=== PATIENT | female | born 1960 | race Caucasian/White ===

== ENCOUNTER → 2020-03-30 07:58 | Outpatient (BNVA) | payer OTHER, SELFPAY | PROVIDERS: PCP Family Medicine; Referring Provider Family Medicine; Visit Provider Advanced Practice Midwife | DX: Z76.89 Persons encountering health services in other specified circumstances (principal) ==

== ENCOUNTER 2021-04-03 07:54 | Outpatient (REF) | payer OTHER, SELFPAY ==
[2021-04-06 00:36] LABS: HPV mRNA E6/E7 rflx Not Detected (Not Detected)
== END 2021-04-03 07:55 | disposition home or self-care (01) ==
LOC: HO.LAB 07:54
PROVIDERS: PCP Family Medicine; Visit Provider Advanced Practice Midwife
DX: Z01.419 Encounter for gynecological examination (general) (routine) without abnormal findings (principal); Z11.51 Encounter for screening for human papillomavirus (HPV)
CPT/HCPCS: 87624; 88142

== ENCOUNTER 2023-05-03 20:48 | Emergency (ER) | payer OTHER, SELFPAY ==
[2023-05-03 21:53] VITALS: BP 185/103; PULSE 81; RESP 16; TEMP 37; O2SAT 99; BMI 26.2
--- NOTE | 2023-05-03 23:53 | ED_ITS ---
HPI - Allergic Reaction General Chief complaint: Allergic Reaction Stated complaint: Allergic reaction Time Seen by Provider: 05/03/23 23:49 Source: patient Mode of arrival: ambulatory Limitations: no limitations History of Present Illness HPI narrative: patient comes to the emergency room complaining Of an allergic reaction. patient states that yesterday she dyed her hair, used a new product. Shortly after, patient started developing an itchy rash over the scalp, forehead and down the neck. Patient denies any difficulty breathing or swallowing. Patient took 3 tablets of Benadryl yesterday, patient states that he gave her significant tachycardia. Patient requesting that to be given Benadryl today. Related Data Home Medications Medication Instructions Recorded Confirmed melatonin 5 mg capsule mg PO .at bedtime 04/05/22 Previous Rx's Medication Instructions Recorded famotidine 40 mg tablet (Pepcid) 40 mg PO DAILY #3 tabs 05/04/23 prednisone 50 mg tablet 50 mg PO DAILY #3 tabs 05/04/23 Allergies Allergy/AdvReac Type Severity Reaction Status Date / Time acetaminophen [ACETAMINOPHEN] Allergy Intermediate HTN Verified 04/05/22 07:46 gabapentin [GABAPENTIN] Allergy Intermediate HTN Verified 04/05/22 07:46 pineapple [PINEAPPLE] Allergy Intermediate RASH Verified 04/05/22 07:46 strawberry [STRAWBERRY] Allergy Intermediate RASH Verified 04/05/22 07:46 watermelon [WATERMELON] Allergy Intermediate RASH Verified 04/05/22 07:46 Review of Systems Review of Systems: Constitutional : No Weight loss, No Fever, No Chills, No Night Sweats, No Fatigue, No Malaise ENT/Mouth : No Hearing loss, No Ear Pain, No Nasal Congestion, No Sinus Pain, No Hoarseness, No sore throat, No Rhinorrhea, No Swallowing Difficulty Eyes: No Eye Pain, No Swelling, No Redness, No Foreign Body, No Discharge, No Vision Changes Cardiovascular : No Chest Pain, No SOB, No Dyspnea on Exertion, No Orthopnea, No Edema, No Palpitations Respiratory : No Cough, No Sputum, No Wheezing, No Smoke Exposure, No Dyspnea Gastrointestinal : No Nausea, No Vomiting, No Diarrhea, No Constipation, No abdominal Pain, No Hematochezia, No Melena Genitourinary : no irregular bleeding, No Dysuria, No Urinary Frequency, No Hematuria, No Urinary Incontinence, No Urgency, No Flank Pain, No Urinary Flow Changes, No Hesitancy Musculoskeletal : No joint pain, No Myalgias, No Joint Swelling Skin : Hives in scalp forehead and back of neck Neuro : No Weakness, No Numbness, No Paresthesias, No Loss of Consciousness, No Dizziness, No Headache Psych : No Anxiety/Panic, No Depression, No SI/HI/AH/VH, No Social Issues, Heme/Lymph: No Bruising, No Bleeding,No Lymphadenopathy Endocrine : No Polyuria, No Polydipsia, No Temperature Intolerance [facility] Past Medical History Medical History Hx of abnormal cervical Pap smear Hx of hypertensive heart disease Surgical History History of loop electrical excision procedure (LEEP) Hx of inguinal hernia repair Hx of parathyroidectomy Hx of tonsillectomy Hx of varicose vein ligation Family History Family History Sister Breast cancer Paternal Aunt Breast cancer Social History Social History Household Members: Children Housing: House Alcohol intake: former Patient Tobacco Use Status: Never used Tobacco Advance Directives: No Advance Directives Information Provided: No Current occupational status: retired Sexual orientation: Straight/Heterosexual Gender identity: Female Physical Exam ED Vital Signs: Vital Signs - 24 hr 05/03/23 21:53 Temperature 98.6 F Pulse Rate 81 Respiratory Rate 16 Blood Pressure 185/103 H Pulse Oximetry 99 Oxygen Delivery Method Room Air BMI result Body Mass Index 26.2 Const Other: Appearance: Alert. Oriented X3. No acute distress. Eyes: Pupils equal, round and reactive to light. ENT: normal oropharynx, no angioedema Neck: Normal inspection. Neck supple. No lymph nodes noted. No crepitus CVS: Normal heart rate and rhythm. Pulses normal. Normal S1 and S2 Respiratory: No respiratory distress. Breath sounds normal. No Wheezing. No rales Abdomen: Soft and nontender. No rigidity. No distention. Skin: patient has hives in the scalp, forehead and back of the neck Extremities: No lower extremity edema. No Lacerations. No Rash Neuro: Oriented X 3. No motor deficit. No sensory deficit. Moving all extremities. No slurred speech. CN 2 through 12 grossly intact Psych: calm, cooperative, normal affect Course Course Course Narrative: - patient being giving IV fluids, famotidine and methylprednisolone. Patient requested not to get Benadryl. At this time, epinephrine IM not indicated Medications Administered Discontinued Medications Generic Name Dose Route Start Last Admin Trade Name David PRN Reason Stop Dose Admin Famotidine 20 mg 05/03/23 23:53 05/04/23 00:05 Famotidine/Pf 20 Mg/2 Ml Vial IVPUSH 05/03/23 23:54 20 mg ONCE ONE Administration Sodium Chloride 1,000 mls @ 999 mls/hr 05/03/23 23:53 05/04/23 00:04 Ns IVCONT 05/04/23 00:53 999 mls/hr .Q1H1M ONE Administration Methylprednisolone Sodium Succinate 125 mg 05/03/23 23:53 05/04/23 00:05 Methylprednisolone Sod Succ 125 Mg/2 Ml Vial IVPUSH 05/03/23 23:54 125 mg ONCE ONE Administration Medical Decision Making Medical Decision Making MDM Narrative: Patient responded well to steroids. Patient still has minimal rash. Per hour, the hives significantly reduced. Patient was given an additional dose of Solu-Medrol. - Vitals stable, no airway compromise Differential Diagnosis Differential Diagnoses: The differential diagnosis associated with the presentation includes ( allergic reaction, hypersensitivity reaction) Critical Care Time Critical Care Time Critical Care Time: Yes Total Critical Care Time: 45 Attestation: I have personally provided critical care time. Time includes review of lab data, radiology results, discussion with consultants, and monitoring for potential decompensation. Intervention performed as documented. Discharge Plan Discharge Clinical Impression: Allergic reaction Patient Disposition: Home, Self-Care Instructions: General Allergic Reaction (ED) Additional Instructions: Please follow-up with your primary care physician tomorrow. If you have any worsening or new symptoms, please return to the emergency room or call 911 Prescriptions: New prednisone 50 mg tablet 50 mg PO DAILY Qty: 3 0RF famotidine [Pepcid] 40 mg tablet 40 mg PO DAILY Qty: 3 0RF No Action melatonin 5 mg capsule PO .at bedtime
[2023-05-04] MEDS: 0.9 % Sodium Chloride 1,000 ML 999 ML IVCONT (00:04)
[2023-05-04] MEDS: methylPREDNISolone Sod Succ 125 MG/2 ML VIAL IVPUSH ×2 (00:05→02:16)
[2023-05-04] MEDS: Famotidine/PF 20 MG/2 ML VIAL IVPUSH (00:05)
[2023-05-04 02:18] VITALS: BP 178/99; PULSE 75; RESP 17; O2SAT 98
== END 2023-05-04 02:27 | disposition home or self-care (01) ==
PROVIDERS: Emergency Provider Emergency Medicine; PCP Family Medicine
DX: L50.0 Allergic urticaria (principal)
CPT/HCPCS: 96361; 96374; 96375; 96376; 99284; J2930

== ENCOUNTER 2023-06-04 11:28 | Outpatient (REF) | payer OTHER, SELFPAY ==
[2023-06-04 13:55] LABS: Alanine Aminotransferase 18 U/L (0-31); Albumin Level 4.6 g/dL (3.5-5.0); Alkaline Phosphatase 64 U/L (39-117); Anion Gap 13 (12-20); Aspartate Amino Transferase 19 U/L (5-31); Bilirubin Direct 0.1 mg/dL (0.0-0.5); Bilirubin Total 0.4 mg/dL (0.0-1.0); Blood Urea Nitrogen 6 mg/dL (9-16); Calcium 9.7 mg/dL (8.4-10.2); Carbon Dioxide 26 mmol/L (22-29); Chloride 105 mmol/L (96-108); Cholesterol 224 mg/dL (<200); Estimated Glomerular Filt Rate > 60; Glucose Random 103 mg/dL (60-115); HDL Cholesterol 74 mg/dL (>40); LDL Cholesterol Calculated 124 mg/dL (<100); Potassium 4.5 mmol/L (3.3-5.1); Sodium 139 mmol/L (135-145); Triglycerides 132 mg/dL (<150)
[2023-06-04 13:58] LABS: HIV AB/AG Nonreactive (Nonreactive); HIV Num 1 0.05 S/CO (0.00-0.99); ~Hepatitis C Antibody Nonreactive (Nonreactive)
[2023-06-04 13:59] LABS: Parathyroid Hormone Intact 93.3 pg/mL (8.7-77.1)
[2023-06-04 14:11] LABS: TSH reflex Free T4 2.31 uIU/mL (0.32-4.0); Vitamin D 25-OH Total 43.9 ng/mL (>30)
== END 2023-06-04 11:29 | disposition home or self-care (01) ==
LOC: HO.HHCL 11:28
PROVIDERS: Visit Provider Family Medicine
DX: Z11.3 Encounter for screening for infections with a predominantly sexual mode of transmission (principal); Z11.4 Encounter for screening for human immunodeficiency virus [HIV]; E21.3 Hyperparathyroidism, unspecified; E78.5 Hyperlipidemia, unspecified; I10 Essential (primary) hypertension
CPT/HCPCS: 36415; 80048; 80061; 80076; 82306; 83970; 84443; 86803; 87389

== ENCOUNTER 2023-06-11 10:33 | Outpatient (AMB) | payer OTHER, SELFPAY ==
[2023-06-11 10:58] VITALS: BP 144/94; BMI 25.8
--- NOTE | 2023-06-11 10:58 | MHC.OFFVIS ---
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: Trailhead Maintenance Worker Name: Molly Brunson ANNIKA Information Interpreted: non-clinical & clinical General Surgery Physician Assistant: General Surgery Physician Assistant Present (Molly ROBLERO) Accompanied by: Self / Same As Patient Allergies acetaminophen [ACETAMINOPHEN] Allergy (Intermediate, Verified 06/11/23 11:04) HTN gabapentin [GABAPENTIN] Allergy (Intermediate, Verified 06/11/23 11:04) HTN pineapple [PINEAPPLE] Allergy (Intermediate, Verified 06/11/23 11:04) RASH strawberry [STRAWBERRY] Allergy (Intermediate, Verified 06/11/23 11:04) RASH watermelon [WATERMELON] Allergy (Intermediate, Verified 06/11/23 11:04) RASH Post menopausal: Yes HPI HPI Comments History of Present Illness Details She 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 She is doing well with no concerns. Attempting to eat a healthy diet with calcium and vitamin D and stays active with exercise. Currently not sexually active. Denies any vaginal dryness or irritation. STI testing offered; she declines. Last pap smear; [facility], due 2023. Last mammogram; at [facility] and UTD pre/pt. Colonoscopy is UTD. Denies any family history of breast, ovarian or colon cancer. [facility], [facility] Medical History Hx of abnormal cervical Pap smear Hx of hypertensive heart disease Surgical History Hx of varicose vein ligation Hx of inguinal hernia repair Hx of tonsillectomy Hx of parathyroidectomy History of loop electrical excision procedure (LEEP) Family History Sister Breast cancer Paternal Aunt Breast cancer Social History (Updated 06/11/23 @ 11:06 by Molly Brunson CMA) Household Members: Children Housing: House Alcohol intake: former Patient Tobacco Use Status: Never used Tobacco Current occupational status: retired Sexual orientation: Straight/Heterosexual Gender identity: Female Female Reproductive History Menstrual Age of Menarche: 14 Menopause type: natural Total pregnancies: 8 Full term: 8 Number of Living Children: 6 Date of last pap smear: 04/04/21 Date of Mammogram: 05/06/23 History of abnormal mammogram: No Review of Systems Const All systems reviewed & are unremarkable except as noted in HPI and below Reports as per HPI Eyes Reports no additional complaints ENT Reports no additional complaints Card Reports no additional complaints Resp Reports no additional complaints GI Reports as per HPI and Reports no additional complaints Reports as per HPI Musc Reports no additional complaints Skin/Breast Reports as per HPI Neuro Reports no additional complaints Psych Reports no additional complaints Endo Reports no additional complaints Alfonzo/Lymph Reports no additional complaints Aller/Immun Reports no additional complaints Physical Exam Vital Signs: Last Vital Signs BP 144/94 H 06/11/23 10:58 BMI result Body Mass Index 25.8 Const General: cooperative, healthy appearing, no acute distress, well developed and alert Orientation/consciousness: patient oriented x3 HEENT Head: Yes normal to inspection Eyes General: appearance normal, both eyes and all related structures Neck Neck: Yes normal visual inspection Thyroid: Thyroid normal Chest Chest palpation & inspection: normal inspection of the chest and other (no puckering, dimpling, peau de orange, retraction, discharge, masses) Breast/axilla inspection: normal inspection of the breasts Breast/axilla palpation: normal palpation of the breasts Resp Effort & Inspection: normal respiratory effort GI Inspection: Yes normal to inspection Palpation (GI): Soft to palpation Rectal Exam - Female: deferred General: Yes bladder normal to palpation External Female Exam: normal external appearance and normal appearance of the urethra Speculum Exam - Vagina: normal appearance of the vagina, normal palpation and normal vaginal discharge Speculum Exam - Cervix: normal appearance of the cervix and normal palpation Bimanual exam- vagina & uterus: normal bimanual exam, normal palpation, uterine size normal, bladder normal to palpation, normal palpation and non-tender Bimanual Exam- Adnexa, other: no masses Skin General skin exam: no rashes or lesions noted Rashes: no rashes Neuro General: patient oriented x3 Cognition (Neuro): normal cognition Extrem General: Yes normal to inspection Psych Attitude: cooperative Thought process: Normal thought process present Assessment & Plan Assessment & Plan (1) Well woman exam with routine gynecological exam: Code(s): Z01.419 - Encounter for gynecological examination (general) (routine) without abnormal findings Plan: Discussed: Current recommendations for pap smears per ASCCP guidelines. Breast awareness, periodic self breast exams and yearly mammogram. Maintain a healthy lifestyle, well balanced diet including Calcium 1,200 mg and Vitamin D 600 IU daily, and routine exercise. Contact the office with any postmenopausal bleeding. All of her questions and concerns were addressed to the best of my ability. 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 This note is constructed using voice recognition software. While every effort has been made to ensure accuracy, neon sign maker errors may have been included. Coding Level of Care Code Est Pt Prev Care 40-64y(13918) Diagnoses Well woman exam with routine gynecological exam Z01.419
== END 2023-06-11 13:33 | disposition home or self-care (01) ==
LOC: HO.HWS 10:33
PROVIDERS: PCP Family Medicine; Visit Provider Advanced Practice Midwife
DX: Z01.419 Encounter for gynecological examination (general) (routine) without abnormal findings (principal)
CPT/HCPCS: 99396

== ENCOUNTER → 2023-06-11 10:33 | Outpatient (BNVA) | payer OTHER, SELFPAY | PROVIDERS: PCP Family Medicine; Visit Provider Advanced Practice Midwife ==

== ENCOUNTER 2024-02-05 09:12 | Outpatient (REF) | payer OTHER, SELFPAY ==
[2024-02-05 12:31] LABS: Anion Gap 11 (12-20); Blood Urea Nitrogen 8 mg/dL (9-16); Calcium 10.1 mg/dL (8.4-10.2); Carbon Dioxide 27 mmol/L (22-29); Chloride 105 mmol/L (96-108); Estimated Glomerular Filt Rate > 60; Glucose Random 103 mg/dL (60-115); Sodium 139 mmol/L (135-145)
[2024-02-05 12:46] LABS: Parathyroid Hormone Intact 54.8 pg/mL (8.7-77.1)
[2024-02-05 12:48] LABS: Creatinine Urine 137.75 mg/dL; Microalbum/Creatinine Ratio Ur 8.7 ug/mg cr (<30)
[2024-02-05 12:57] LABS: Vitamin D 25-OH Total 39.6 ng/mL (>30)
== END 2024-02-05 09:13 | disposition home or self-care (01) ==
LOC: HO.HHCL 09:12
PROVIDERS: Visit Provider Family Medicine
DX: I10 Essential (primary) hypertension (principal); E21.3 Hyperparathyroidism, unspecified
CPT/HCPCS: 36415; 80048; 82043; 82306; 82310; 82570; 83970

== ENCOUNTER 2024-07-08 11:22 | Outpatient (REF) | payer OTHER, SELFPAY ==
--- OUTSIDE RECORDS SUMMARY | 2024-07-08 13:44 | XMS_ITS | Clinical Summary ---
Author Organization [facility], Address [address] [place] [address] [place] [address] Phone Care Team Providers Care Adult Care Manager Name Role Phone Ashanti Davila MD Primary Care Provider U navailable Allergies Active Allergy Reactions Criticality Noted Date Comments Gabapentin 07/07/2019 Medications NIFEdipine CC (ADALAT CC) 30 MG 24 hr tablet Take 30 mg by mouth 1 (one) time each day Active Active Problems Problem Noted Date Diagnosed Date Hypercholesterolemia Hyperparathyroidism Hypertension Social History Tobacco Use Types Packs/Day Years Used Date Smoking Tobacco: Never Comments Unknown Sex and Gender Information Value Date Recorded Sex Assigned at Not on file Legal Sex Female 3:43 PM EST Gender Identity Not on file Sexual Orientation Not on file Last Filed Vital Signs Vital Sign Reading Time Taken Comments Blood Pressure 166/105 07/14/2019 9:31 AM EST Pulse 75 07/14/2019 9:31 AM EST Temperature 36.8 ??C (98.2 ??F) 07/14/2019 9:31 AM ES T Respiratory Rate - - Oxygen Saturation - - Inhaled Oxygen Concentration - - Weight 68.9 kg (152 lb) 07/14/2019 9:31 AM EST Height 160 cm (5' 3 ) 07/14/2019 9:31 AM EST Body Mass Index 26.93 07/14/2019 9:31 AM EST Plan of Treatment Health Maintenance Due Date Last Done Comments Breast Cancer Screening 1960 Colorectal Cancer Screening: Annual FOBT 01/10/2008 Colorectal Cancer Screening: Colonoscopy 01/10/2008 Colorectal Cancer Screening: Sigmoidoscopy 01/10/2008 Pneumococcal Vaccine: 65+ Ye ars (1 of 1 - PCV) 01/10/2024 Influenza Vaccine (#1) 2024 Hepatitis B Vaccine Aged Out No longe r eligible based on patient's age to complete this topic Pneumococcal Vaccine: Pediat rics (0 to 5 Years) and At-Risk Patients (6 to 64 Years) Aged Out No longer eligible b ased on patient's age to complete this topic Insurance [place] [employer] [id number] Care Teams Adult Care Manager Relationship Specialty Start Date End Date Baird, Ashanti Orta MD PCP - General Family Medicine 06/01/19
--- OUTSIDE RECORDS SUMMARY | 2024-07-08 13:44 | XMS_ITS | Clinical Summary ---
Author Organization [facility] ity Address [address] [place] [address] Care Team Providers Care Mica Washer Gluer Name Role Phone Unavailable Primary Care Provider Unavailabl e Social History Tobacco Use Types Packs/Day Years Used Date Smoking Tobacco: Never Assessed Sex and Gender Information Value Date Recorded Sex Assigned at Not on file Gender Identity Not on file Sexual Orientation Not on file Plan of Treatment Health Maintenance Due Date Last Done Comments Breast Cancer Screening 1960 DTaP,Tdap,and Td Vaccines (1 - Tdap) 1978 Cervical Cancer Screening: P ap Smear 01/10/1980 Zoster Vaccines (1 of 2) 2009 Cholesterol Screening (Lipid Panel) 05/14/2022 Colorectal Cancer Screening: Colonoscopy 05/14/2022 Depression Screening 05/14/2022 Hepatitis C Screening 05/14/2022 Osteoporosis Screening (Bone Density Screening) 05/14/2022 Social Influencers of Health Screening 05/14/2022 Falls Risk Assessment 01/10/2024 Pneumococcal Vaccine: 65+ Ye ars (1 of 1 - PCV) 01/10/2024 Hypertension/CHF/CAD Annual BMP Blood Test 01/12/2024 COVID-19 Vaccine (1 - 2023-2 5 season) 2024 Influenza Vaccine (#1) 2024 RSV Immunization Patients 60 + Years Old (1 - 1-dose 75+ series) 2034 HIB Vaccines Aged Out No longer eligi ble based on patient's age to complete this topic HPV Vaccines Aged Out No longer eligi ble based on patient's age to complete this topic Hepatitis A Vaccines Aged Out No long er eligible based on patient's age to complete this topic Hepatitis B Vaccines Aged Out No long er eligible based on patient's age to complete this topic IPV Vaccines Aged Out No longer eligi ble based on patient's age to complete this topic MMR Vaccines Aged Out No longer eligi ble based on patient's age to complete this topic Meningococcal ACWY Vaccine Aged Out N o longer eligible based on patient's age to complete this topic Pneumococcal Vaccine: Pediat rics (0 to 5 Years) and At-Risk Patients (6 to 64 Years) Aged Out No longer eligible b ased on patient's age to complete this topic RSV Immunization Patients Un sherri 20 months Aged Out No longer eligible b ased on patient's age to complete this topic Varicella Vaccines Aged Out No longer eligible based on patient's age to complete this topic
[2024-07-08 14:10] LABS: Alanine Aminotransferase 20 U/L (0-31); Albumin Level 4.3 g/dL (3.5-5.0); Alkaline Phosphatase 60 U/L (39-117); Anion Gap 11 (12-20); Aspartate Amino Transferase 22 U/L (5-31); Bilirubin Direct 0.2 mg/dL (0.0-0.5); Bilirubin Total 0.6 mg/dL (0.0-1.0); Blood Urea Nitrogen 7 mg/dL (9-16); Calcium 9.7 mg/dL (8.4-10.2); Carbon Dioxide 24 mmol/L (22-29); Chloride 107 mmol/L (96-108); Cholesterol 230 mg/dL (<200); Estimated Glomerular Filt Rate > 60; Glucose Random 85 mg/dL (60-115); HDL Cholesterol 65 mg/dL (>40); LDL Cholesterol Calculated 154 mg/dL (<100); Potassium 3.7 mmol/L (3.3-5.1); Sodium 138 mmol/L (135-145); Total Protein 7.7 g/dL (6.5-8.0); Triglycerides 56 mg/dL (<150)
[2024-07-08 14:15] LABS: Creatinine Urine 83.85 mg/dL; Microalbum/Creatinine Ratio Ur 9.5 ug/mg cr (<30)
== END 2024-07-08 11:23 | disposition home or self-care (01) ==
LOC: HO.HHCL 11:22
PROVIDERS: Visit Provider Family Medicine
DX: I10 Essential (primary) hypertension (principal); E78.5 Hyperlipidemia, unspecified
CPT/HCPCS: 36415; 80048; 80061; 80076; 82043; 82570

== ENCOUNTER 2024-08-09 07:58 | Emergency (ER) | payer OTHER, SELFPAY ==
[2024-08-09] VITALS (8 sets, daily range): BP systolic 157–186; BP diastolic 88–114; PULSE 64–98; RESP 15–18; TEMP 36.2–36.8; O2SAT 99–100; BMI 26.6
--- NOTE | 2024-08-09 08:24 | ECG_ITS ---
Test Reason : htn Blood Pressure : */* mmHG Vent. Rate : 78 BPM Atrial Rate : 78 BPM P-R Int : 216 ms QRS Dur : 86 ms QT Int : 378 ms P-R-T Axes : 66 31 65 degrees QTcB Int : 430 ms Sinus rhythm with 1st degree A-V block Minimal voltage criteria for LVH, may be normal variant ( Sokolow-Lira ) Nonspecific ST and T wave abnormality Abnormal ECG When compared with ECG of 01-May-2017 15:23, Nonspecific T wave abnormality no longer evident in Anterior leads Referred By: Aaron Umana Electronically Signed By: ALICE GONZALEZ
--- NOTE | 2024-08-09 08:25 | ED_ITS ---
HPI - General Adult General Chief complaint: General Medical Stated complaint: high bp Time Seen by Provider: 08/09/24 08:18 Source: patient Mode of arrival: ambulatory Limitations: no limitations History of Present Illness HPI narrative: This is 64 years old the patient with a history of hypertension who presented to the emergency department with elevated blood pressure. She denies any chest pain shortness of breath. She states she was on losartan and then amlodipine 2.5 mg. She has been off the blood pressure medication for about a week. Onset (ago): week(s) (1) Location: lower extremity Radiation: non-radiation Severity: moderate Quality: burning Pain Consistency: constant Relieving factors: none Exacerbating factors: none Related Data Home Medications ?Medication ?Instructions ?Recorded ?Confirmed ascorbic acid (vitamin C) 500 mg mg PO 06/11/23 capsule Previous Rx's ?Medication ?Instructions ?Recorded amlodipine 10 mg tablet (Norvasc) 10 mg PO DAILY #10 tabs 08/09/24 Allergies Allergy/AdvReac Type Severity Reaction Status Date / Time acetaminophen [ACETAMINOPHEN] Allergy Intermediate HTN Verified 08/09/24 08:07 gabapentin [GABAPENTIN] Allergy Intermediate HTN Verified 08/09/24 08:07 pineapple [PINEAPPLE] Allergy Intermediate RASH Verified 08/09/24 08:07 strawberry [STRAWBERRY] Allergy Intermediate RASH Verified 08/09/24 08:07 watermelon [WATERMELON] Allergy Intermediate RASH Verified 08/09/24 08:07 aspirin [ASA] AdvReac Shakiness Verified 08/09/24 08:13 Review of Systems 2 Constitutional: Constitutional: Reports no additional constitutional complaints ENT: Reports system reviewed and no additional complaints, except as documented Cardiovascular: Cardiovascular: Reports no additional cardiovascular complaints [facility] Past Medical History [facility] Narrative: Hypertension Medical History Hx of abnormal cervical Pap smear Hx of hypertensive heart disease Surgical History Hx of varicose vein ligation Hx of inguinal hernia repair Hx of tonsillectomy Hx of parathyroidectomy History of loop electrical excision procedure (LEEP) Family History Family History Sister Breast cancer Paternal Aunt Breast cancer Social History Social History Household Members: Children Housing: House Alcohol intake: former Patient Tobacco Use Status: Never used Tobacco Smoked in Last 30 Days: No Use of substances other than those prescribed or required for medical reasons: No Advance Directives: No Advance Directives Information Provided: Yes Do you have a plan to hurt others: No Plan Current occupational status: retired Sexual orientation: Straight/Heterosexual Gender identity: Female Physical Exam ED Vital Signs: Vital Signs - 24 hr 08/09/24 08:03 08/09/24 08:22 08/09/24 08:29 Temperature 97.8 F 97.1 F Pulse Rate 98 83 Respiratory Rate 16 18 Blood Pressure 181/103 H 186/114 H 186/114 H Pulse Oximetry 99 100 Oxygen Delivery Method Room Air 08/09/24 08:55 08/09/24 09:32 08/09/24 09:59 Temperature Pulse Rate 68 64 68 Respiratory Rate 16 18 18 Blood Pressure 175/112 H 163/97 H 161/88 H Pulse Oximetry 100 99 99 Oxygen Delivery Method Room Air Room Air Room Air 08/09/24 10:16 08/09/24 11:11 Temperature 98.3 F 98.3 F Pulse Rate 72 72 Respiratory Rate 15 15 Blood Pressure 157/90 H 157/90 H Pulse Oximetry 99 99 Oxygen Delivery Method Room Air Room Air BMI result Body Mass Index 26.6 No acute distress looks well vital signs stable but BP 181/103 and then 186/114 Const General: cooperative, comfortable, no acute distress and well developed Nutritional Appearance: average body habitus Limitations: no limitations HENMT Head: Yes normal to inspection General nose exam: Normal external nose present Face and sinus: Yes normal facial exam Mouth: Normal oral and palatal mucosa present Neck Neck: Yes normal visual inspection Chest Chest palpation & inspection: normal inspection of the chest Cardio Jugular venous distension: no JVD Rate: regular rate Rhythm: regular rhythm GI Inspection: Yes normal to inspection Palpation (GI): Soft to palpation, not firm, nontender and no guarding Percussion: Yes normal to percussion Auscultation: normal bowel sounds Skin General skin exam: no rashes or lesions noted, elasticity normal and turgor normal Course Reevaluation(s) Reevaluation #1: BP better labs normal anticipate discharge Time: 10:56 Medications Administered Discontinued Medications Generic Name Dose Route Start Last Admin Trade Name Barreraq PRN Reason Stop Dose Admin Amlodipine Besylate 10 mg 08/09/24 08:24 08/09/24 08:29 Amlodipine Besylate 10 Mg Tablet PO 08/09/24 08:25 10 mg ONCE ONE Administration Protocol Medical Decision Making Medical Decision Making [facility] Narrative: Patient presented with elevated blood pressure pressure we will check ekg/labs Differential Diagnosis Differential Diagnoses: The differential diagnosis associated with the presentation includes Essential hypertension/acute coronary syndrome/white coat hypertension Lab Data [facility] Lab Attestation statement: I reviewed the patient's lab results. 08/09/24 08:38 08/09/24 00:06 Labs: Lab Results 08/09/24 08/09/24 Range/Units 00:06 08:38 WBC 3.1 L (4.8-10.8) X10*3/uL RBC 4.97 (4.20-5.50) X10*6/uL Hgb 14.1 (12.0-16.0) g/dl Hct 41.6 (37.0-47.0) % MCV 83.7 (80.0-98.0) fL MCH 28.4 (27.0-33.0) pg MCHC 33.9 (31.0-35.0) g/dl RDW 13.2 (11.0-16.0) % Plt Count 238 (160-400) X10*3/uL MPV 9.7 (9.4-12.3) fL Immature Gran % (Auto) 0.3 (0.0-0.4) % Neut % (Auto) 52.1 (45-73) % Lymph % (Auto) 34.4 (20-40) % Iroquois % (Auto) 10.3 (2-11) % Eos % (Auto) 1.9 (0-4) % Baso % (Auto) 1.0 (0-2) % Lymph # (Auto) 1.1 L (1.2-4.9) X10*3/uL [place]quois # (Auto) 0.3 (0.1-1.2) X10*3/uL Eos # (Auto) 0.1 (0.0-0.4) X10*3/uL Baso # (Auto) 0.0 (0.0-0.2) X10*3/uL Abs Immat Gran (auto) 0.01 (0.00-0.03) X10*3/uL Absolute Neuts (auto) 1.6 L (2.0-8.3) x10*3/uL Absolute Nucleated RBC 0.000 (0.0-0.012) X10*3/uL Nucleated RBC % (auto) 0.0 (0.0-0.2) /100WBC Sodium 142 (135-145) mmol/L Potassium 3.9 (3.3-5.1) mmol/L Chloride 106 (96-108) mmol/L Carbon Dioxide 25 (22-29) mmol/L Anion Gap 15 (12-20) BUN 4 L (9-16) mg/dL Creatinine 0.73 (0.5-1.4) mg/dL Estim Creat Clear Calc 65.7 Estimated GFR > 60 Random Glucose 117 H (60-115) mg/dL Calcium 9.9 (8.4-10.2) mg/dL Total Bilirubin 0.6 (0.0-1.0) mg/dL AST 23 (5-31) U/L ALT 23 (0-31) U/L Alkaline Phosphatase 60 (39-117) U/L Troponin I High Sens < 2.7 (<3.5-17.0) ng/L Total Protein 8.2 H (6.5-8.0) g/dL Albumin 4.6 (3.5-5.0) g/dL Independent Interpretation I performed an independent interpretation of an: EKG Interpretation: Normal sinus rhythm rate 86 no ischemic changes Discharge Plan Discharge Clinical Impression: Hypertension Qualifiers: Hypertension type: unspecified Qualified Code(s): I10 - Essential (primary) hypertension Patient Disposition: Home, Self-Care Instructions: Hypertension (ED) Additional Instructions: Follow-up with your primary care physician we sent a prescription for Norvasc 10 mg take 1 tablet daily we gave you 10 day supply, but blood pressure needs to be treated by the primary care physician not by the emergency room. So call your primary care physician today arrange a follow-up appointment Prescriptions: New amlodipine [Norvasc] 10 mg tablet 10 mg PO DAILY Qty: 10 0RF No Action ascorbic acid (vitamin C) 500 mg capsule PO Referrals: Ashanti Davila MD [Primary Care Provider] - 3 days Interventions: ED Discharge Assessment Last Done: 08/09/24 11:11 Discharge Date/Time: 08/09/24 11:24 Print Language: [place]
[2024-08-09] MEDS: amLODIPine Besylate 10 MG TABLET PO (08:29)
[2024-08-09 08:43] LABS: MANUAL DIFF FLAG NO
[2024-08-09 08:45] LABS: Eosinophils Absolute Auto 0.1 X10*3/uL (0.0-0.4); Eosinophils Percent Auto 1.9 % (0-4); Hematocrit 41.6 % (37.0-47.0); Hemoglobin 14.1 g/dl (12.0-16.0); Imm Gran Abs Auto 0.01 X10*3/uL (0.00-0.03); Imm Gran Pct Auto 0.3 % (0.0-0.4); Lymphocytes Absolute Auto 1.1 X10*3/uL (1.2-4.9); Lymphocytes Percent Auto 34.4 % (20-40); Mean Corpuscular HGB Conc 33.9 g/dl (31.0-35.0); Mean Corpuscular Hemoglobin 28.4 pg (27.0-33.0); Mean Corpuscular Volume 83.7 fL (80.0-98.0); Mean Platelet Volume 9.7 fL (9.4-12.3); Monocytes Absolute Auto 0.3 X10*3/uL (0.1-1.2); Monocytes Percent Auto 10.3 % (2-11); Neutrophils Absolute Auto 1.6 x10*3/uL (2.0-8.3); Neutrophils Percent Auto 52.1 % (45-73); Platelet Count 238 X10*3/uL (160-400); Red Blood Count 4.97 X10*6/uL (4.20-5.50); Red Cell Distribution Width 13.2 % (11.0-16.0); White Blood Count 3.1 X10*3/uL (4.8-10.8)
--- OUTSIDE RECORDS SUMMARY | 2024-08-09 08:46 | XMS_ITS | Encounter Summary ---
Author Organization [employer] Address [address] [facility] [address] [place] [address] Care Team Providers Care Bread Packer Name Role Phone Ashanti Davila MD Primary Care Provider [phone]- [phone] Fartun Guidry PharmD Unavailable Ele Meza Unavailable Reason for Visit * Reason Onset Date Comments Nurse Triage 11/07/2023 Encounter Details Date Type Department Care Team (Late st Contact Info) Description 11/07/2023 Telephone [facility]INE [address] [place], [place] [phone] Ashanti Davila MD [address] [place], [place] [phone] Nurse Triage Social History Tobacco Use Types Packs/Day Years Used Date Smoking Tobacco: Never Smokeless Tobacco: Never Alcohol Use Standard Drinks/Week Comments Never 0 (1 standard drink = 0.6 oz pur e alcohol) Housing Stability Answer Date Recorded What is your housing situation today? I have peter henley 06/04/[address] you li ve. Do you have problems with any of the following? None of the above 06/04/2023 Food Insecurity Answer Date Recorded Within the past 12 months, y ou worried that your food would run out before you got money to buy more: Never True 06/04/2023 Within the past 12 months,th e food you bought just didn't last and you didn't have enough money to get more: Never True Transportation Answer Date Recorded In the past 12 months, has l ack of transportation kept you from medical appts, meetings, work or from getting things needed for daily living? No 06/04/2023 Utilities Answer Date Recorded In the past 12 months, has t he electric, gas, oil or water company threatened to shut off services in your home? No 06/04/2023 Depression Answer Date Recorded Patient Health Questionnaire-2 Score 0 06/04/2023 Comments Unknown Sex and Gender Information Value Date Recorded Sex Assigned at Female 04/15/2022 10:17 AM EDT Legal Sex Female 10:17 AM EDT Gender Identity Female 04/15/2022 10:17 AM EDT Sexual Orientation Choose not to disclose 2021 10:17 AM EDT documented as of this encounter Miscellaneous Notes * Telephone Encounter - Juanis Tsang LPN - 11/07/2023 11:25 AM EDT Unable to reach patient as a Kyrgyz speaker with [facility] Receptionist. Team tasked to follow with patient. Protocol Used: No Contact or Duplicate Contact Call (Adult) Protocol-Based Disposition: No Contact Call Positive Triage Questions: * No answer. First attempt to contact caller. Follow-up call scheduled within 15 minutes. * Message left with person in household * Second attempt to contact caller AND no contact made. Phone number verified. * Third attempt to contact caller AND no contact made. Phone number verified. * All higher-acuity triage questions were negative * Telephone Encounter - Dana Philip - 11/07/2023 10:03 AM EDT Symptom: High Blood Pressure - Caller Reports Outcome: Schedule a same-day appointment or talk to a nurse or provider today Reason: Caller denied all higher acuity questions The caller accepted this outcome Please contact pt at [phone] (real estate photographer) documented in this encounter Plan of Treatment Not on file documented as of this encounter Visit Diagnoses Not on filedocumented in this encounter Care Teams Bread Packer Relationship Specialty Start Date End Date Ashanti Davila MD [address] [place] [id number] PCP - General Family Medicine 06/16/18 Fartun Guidry, MahamedD [address] [place], [place] [phone] Pharmacist Internal Medicine 02/05/24 Ele Meza [address] [address] Gynecology 07/08/24 documented as of this encounter
--- OUTSIDE RECORDS SUMMARY | 2024-08-09 08:47 | XMS_ITS | Encounter Summary ---
Author Organization [employer] [facility] Address [address] [facility] 7 [place] [address] Care Team Providers Care Ear Muff Assembler Name Role Phone Ashanti Davila MD Primary Care Provider + [phone] Fartun Guidry PharmD Unavailable [phone] Ele Meza Unavailable Encounter Details Date Type Department Care Team (Latest Contact Info) Description 11/13/2018 Abstract C CONVERSIONS Dental, Provider, DDS Social History Tobacco Use Types Packs/Day Years Used Date Smoking Tobacco: Never Assessed Comments Unknown Sex and Gender Information Value Date Recorded Sex Assigned at Female 04/15/2022 10:17 AM EDT Legal Sex Female 10:17 AM EDT Gender Identity Female 04/15/2022 10:17 AM EDT Sexual Orientation Choose not to disclose 2021 10:17 AM EDT documented as of this encounter Plan of Treatment Not on file documented as of this encounter Visit Diagnoses Not on filedocumented in this encounter Care Teams Ear Muff Assembler Relationship Specialty Start Date End Date Ashanti Davila MD [address] [place] [address] PCP - General Family Medicine 06/16/18 Fartun Guidry, PharmD [address] [place] [address] Pharmacist Internal Medicine 02/05/24 Ele Meza [address] [place] [id number] Gynecology 07/08/24 documented as of this encounter
--- OUTSIDE RECORDS SUMMARY | 2024-08-09 08:47 | XMS_ITS | Encounter Summary ---
Author Organization [employer] Address [address] [facility] 7[address] [place] [address] Care Team Providers Care Pricing Lead Name Role Phone Ashanti Davila MD Primary Care Provider [phone]- [phone] Fartun Guidry PharmD Unavailable [phone]- [phone] Ele Meza Unavailable Encounter Details Date Type Department Care Team (Late st Contact Info) Description 07/27/2024 Orders Only [facility] [address] [place], [place] [phone] Ashanti Davila MD [address] [place], [place] [phone] Social History Tobacco Use Types Packs/Day Years Used Date Smoking Tobacco: Never Smokeless Tobacco: Never Alcohol Use Standard Drinks/Week Comments Never 0 (1 standard drink = 0.6 oz pur e alcohol) Depression Answer Date Recorded Patient Health Questionnaire-9 Score 0 07/08/2024 Patient Health Questionnaire-9 Score 0 07/08/2024 Last PHQ-9: Questionnaire Data Not on file 0 07/08/2024 Housing Stability Answer Date Recorded What is your housing situation today? I have peter henley 06/29/[address] you li ve. Do you have problems with any of the following? None of the above 06/29/2024 Food Insecurity Answer Date Recorded Within the past 12 months, y ou worried that your food would run out before you got money to buy more: Never True 06/29/2024 Within the past 12 months,th e food you bought just didn't last and you didn't have enough money to get more: Never True Transportation Answer Date Recorded In the past 12 months, has l ack of transportation kept you from medical appts, meetings, work or from getting things needed for daily living? No 06/29/2024 Utilities Answer Date Recorded In the past 12 months, has t he electric, gas, oil or water company threatened to shut off services in your home? No 06/29/2024 Depression Answer Date Recorded Patient Health Questionnaire-2 Score 0 07/08/2024 Internet Access Answer Date Recorded Internet Access Q1 Yes 06/29/2024 Internet Access Q2 Not on file 06/29/2024 Comments Unknown Sex and Gender Information Value [...] Diagnoses Not on filedocumented in this encounter Additional Health Concerns Assessment Noted Time PHQ-9 Depression Total Score: 0 07/08/19 10:38 AM EST documented as of this encounter Care Teams Pricing Lead Relationship Specialty Start Date End Date Ashanti Davila MD [address] [place] [address] PCP - General Family Medicine 06/16/18 Fartun Guidry PharmD [address] [place] [address] Pharmacist Internal Medicine 02/05/24 Ele Meza [address] [address] Gynecology 07/08/24 documented as of this encounter
--- OUTSIDE RECORDS SUMMARY | 2024-08-09 08:47 | XMS_ITS | Clinical Summary ---
Author Organization [facility], Address [address] [place] [address] [place] [address] Phone Care Team Providers Care Special Education Paraeducator Name Role Phone Ashanti Davila MD Primary [...] to complete this topic Insurance [place] [employer]ENDEZ [id number] Care Teams Special Education Paraeducator Relationship Specialty Start Date End Date Wilburn, Ashanti Orta MD PCP - General Family Medicine 06/01/19
--- OUTSIDE RECORDS SUMMARY | 2024-08-09 08:47 | XMS_ITS | Clinical Summary ---
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 60 tablet 11 5 07/08/19 26 Active valsartan (Diovan) 80 MG tabletIndications :Primary hypertension Take 1 tablet (80 mg) by mouth Once per day. 30 tablet 11 5 07/08/19 26 Active Active Problems Patient Care Coordination No te Formatting of this note migh t be different from the original. [facility] [employer]: [place], member services number [phone], provider services line, , option 4 [employer] Agency: Refused [facility] Problem Noted Date Diagnosed Date Dietary counseling 07/08/2024 Assessment & Plan (07/08/2024 10:44 AM EST): Exercise Recommendations: At least 150 minutes of moderate-intensity physical activity per week, or an equivalent combination of moderate- and vigorous-intensity activity Exercise counseling 07/08/2024 Assessment & Plan (07/08/2024 10:44 AM EST): Dietary Recommendations: Fruits, vegetables, whole grains, protein foods, and fat-free or low-fat dairy products are healthy choices. Eat different types of protein foods in your diet. This can include seafood, lean meats, poultry, beans, peas, lentils, nuts, seeds, soy products, and eggs. Limit foods and beverages higher in added sugars, saturated fat, and sodium. Overweight 07/08/2024 Overview (07/08/2024): -ordered routine labs 07/08/24 Assessment & Plan (07/08/2024 10:57 AM EST): -ordered routine labs 07/08/24 Rash 01/29/2024 Overview (01/29/2024): Pt reports rash over elbows, RUE and back for years. -Rash likely consistent with eczema -Will trial Clobetasol ointment Assessment & Plan (01/29/2024 4:51 PM EDT): Pt reports rash over elbows, RUE and back for years. -Rash likely consistent with eczema -Will trial Clobetasol ointment Cardiac risk counseling 10/08/2023 Overview (07/08/2024): Calculated 07/08/24 : Intermediate risk The 10-year ASCVD risk score (Gordo VALENTIN, et al., 2019) is: 11.3% Values used to calculate the score: Age: 64 years Sex: Female Is Non- : No Diabetic: No Tobacco smoker: No Systolic Blood Pressure: 164 mmHg Is BP treated: Yes HDL Cholesterol: 74 mg/dL Total Cholesterol: 224 mg/dL Lab Results Component Value Date LDLCHOL 154 (H) 03/06/2022 LDLCHOL 170 (H) 01/03/2021 -Tobacco cessation: not applicable -Statin therapy:Pt declines to use regularly, continue to strongly encourage -goal LDL < 100mg/dl I explained to the pt that her recent EKG showed sings of stress on her heart and although she feels well, if her BP is not controlled she is at high risk for possible stroke, heart attack and even . We discussed medications and side effects, but pt reports many having many of the side effects and feeling like she is dying and that the medications are killing her. We also discussed coping strategies and a plan, including continuing a healthy lifestyle, being active in her restorationism and prayer, relaxation techniques, and patient agreed to seeing [facility] with our PharmSHE Martinez as well as cardiology. Pt saw CDTM once and the declined follow-up. Assessment & Plan (07/08/2024 10:50 AM EST): Calculated 07/08/24 : Intermediate risk The 10-year ASCVD risk score (Gordo VALENTIN, et al., 2019) is: 11.3% Values used to calculate the score: Age: 64 years Sex: Female Is Non- : No Diabetic: No Tobacco smoker: No Systolic Blood Pressure: 164 mmHg Is BP treated: Yes HDL Cholesterol: 74 mg/dL Total Cholesterol: 224 mg/dL Lab Results Component Value Date LDLCHOL 154 (H) 03/06/2022 LDLCHOL 170 (H) 01/03/2021 -Tobacco cessation: not applicable -Statin therapy:Pt declines to use regularly, continue to strongly encourage -goal LDL < 100mg/dl I explained to the pt that her recent EKG showed sings of stress on her heart and although she feels well, if her BP is not controlled she is at high risk for possible stroke, heart attack and even . We discussed medications and side effects, but pt reports many having many of the side effects and feeling like she is dying and that the medications are killing her. We also discussed coping strategies and a plan, including continuing a healthy lifestyle, being active in her restorationism and prayer, relaxation techniques, and patient agreed to seeing [facility] with our SHE Tate as well as cardiology. Pt saw CDTM once and the declined follow-up. Assessment & Plan (01/29/2024 4:49 PM EDT): Calculated 01/29/24 : Intermediate risk The 10-year ASCVD risk score (Gordo VALENTIN, et al., 2019) is: 11.3% Values used to calculate the score: Age: 64 years Sex: Female Is Non- : No Diabetic: No Tobacco smoker: No Systolic Blood Pressure: 164 mmHg Is BP treated: Yes HDL Cholesterol: 74 mg/dL Total Cholesterol: 224 mg/dL Lab Results Component Value Date LDLCHOL 154 (H) 03/06/2022 LDLCHOL 170 (H) 01/03/2021 -Tobacco cessation: not applicable -Statin therapy:Pt declines to use regularly, continue to strongly encourage -goal LDL < 100mg/dl I explained to the pt that her recent EKG showed sings of stress on her heart and although she feels well, if her BP is not controlled she is at high risk for possible stroke, heart attack and even . We discussed medications and side effects, but pt reports many having many of the side effects and feeling like she is dying and that the medications are killing her. We also discussed coping strategies and a plan, including continuing a healthy lifestyle, being active in her restorationism and prayer, relaxation techniques, and patient agrees to seeing [facility] with our PharmD, CDCES as well as cardiology. 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 S/p excision 01/2006 and 5 years of Tamoxifen. Followed by [facility]. Last visit 03/2014 -Last bilateral Mammo was negative 04/20/2019. BI-RADS 1 -b/l US on 08/06/2019 was normal -breast exam normal 10/2018 -Mammo 07/2019 BIRADS 1 negative -Mammo 04/25/2021 BIRADS 1 negative -Mammo 05/06/2023 negative Assessment & Plan (04/26/2024 12:37 PM EST): Hx right atypia of the breast and family history of breast cancer. S/p excision 01/2006 and 5 years of Tamoxifen. Followed by [facility]. Last visit 03/2014 -Last bilateral Mammo was negative 04/20/2019. BI-RADS 1 -b/l US on 08/06/2019 was normal -breast exam normal 10/2018 -Mammo 07/2019 BIRADS 1 negative -Mammo 04/25/2021 BIRADS 1 negative -Mammo 05/06/2023 negative Assessment & Plan (01/29/2024 4:47 PM EDT): Hx right atypia of the breast and family history of breast cancer. S/p excision 01/2006 and 5 years of Tamoxifen. Followed by [facility]. Last visit 03/2014 -Last bilateral Mammo was negative 04/20/2019. BI-RADS 1 -b/l US on 08/06/2019 was normal -breast exam normal 10/2018 -Mammo 07/2019 BIRADS 1 negative -Mammo 04/25/2021 BIRADS 1 negative -Mammo 05/06/2023 negative Assessment & Plan (06/02/2023 10:18 AM EST): Hx right atypia of the breast and family history of breast cancer. S/p excision 01/2006 and 5 years of Tamoxifen. Followed by [facility] [place]. Last visit 03/2014 -Last bilateral Mammo was negative 04/20/2019. BI-RADS 1 -b/l US on 08/06/2019 was normal -breast exam normal 10/2018 -Mammo 07/2019 BIRADS 1 negative -Mammo 04/25/2021 BIRADS 1 negative Status post lumpectomy on 01/17/2006 and a 5 year course of tamoxifen completed in 2010 Assessment & Plan (06/30/2022 9:59 AM EST): Hx right atypia of the breast and family history of breast cancer. S/p excision 01/2006 and 5 years of Tamoxifen. Followed by [facility] [place]. Last visit 03/2014 -Last bilateral Mammo was negative 04/20/2019. BI-RADS 1 -b/l US on 08/06/2019 was normal -breast exam normal 10/2018 -Mammo 07/2019 BIRADS 1 negative -Mammo 04/25/2021 BIRADS 1 negative Dyslipidemia 10/28/2018 Overview (07/08/2024): Lab Results Component Value Date CHOL 224 (H) 06/04/2023 CHOL 248 (A) 03/06/2022 TRIG 132 06/04/2023 TRIG 125 03/06/2022 HDL 74 06/04/2023 HDL 69 03/06/2022 LDLCHOLCAL 124 (H) 06/04/2023 LDL 154 03/06/2022 -Patient has self-discontinued statin medication multiple times and will not restart. -Aadvised low-cholesterol diet and increasing physical activity. -Importance of low fat, low cholesterol diet and regular moderate physical activity discussed. -FLP not at goal, she is hesitant to get lab draws so we will order FLP when she is due for labs due to medication changes with her BP meds. -ordered repeat labs 07/08/24 Assessment & Plan (07/08/2024 10:57 AM EST): Lab Results Component Value Date CHOL 224 (H) 06/04/2023 CHOL 248 (A) 03/06/2022 TRIG 132 06/04/2023 TRIG 125 03/06/2022 HDL 74 06/04/2023 HDL 69 03/06/2022 LDLCHOLCAL 124 (H) 06/04/2023 LDL 154 03/06/2022 -Patient has self-discontinued statin medication multiple times and will not restart. -Aadvised low-cholesterol diet and increasing physical activity. -Importance of low fat, low cholesterol diet and regular moderate physical activity discussed. -FLP not at goal, she is hesitant to get lab draws so we will order FLP when she is due for labs due to medication changes with her BP meds. -ordered repeat labs 07/08/24 Assessment & Plan (04/26/2024 12:37 PM EST): Lab Results Component Value Date CHOL 224 (H) 06/04/2023 CHOL 248 (A) 03/06/2022 TRIG 132 06/04/2023 TRIG 125 03/06/2022 HDL 74 06/04/2023 HDL 69 03/06/2022 LDLCHOLCAL 124 (H) 06/04/2023 LDL 154 03/06/2022 -Patient has self-discontinued statin medication multiple times and will not restart. -Aadvised low-cholesterol diet and increasing physical activity. -Importance of low fat, low cholesterol diet and regular moderate physical activity discussed. -FLP not at goal, she is hesitant to get lab draws so we will order FLP when she is due for labs due to medication changes with her BP meds. Assessment & Plan (01/29/2024 4:47 PM EDT): Lab Results Component Value Date CHOL 224 (H) 06/04/2023 CHOL 248 (A) 03/06/2022 TRIG 132 06/04/2023 TRIG 125 03/06/2022 HDL 74 06/04/2023 HDL 69 03/06/2022 LDLCHOLCAL 124 (H) 06/04/2023 LDL 154 03/06/2022 -Patient has self-discontinued statin medication multiple times and will not restart. -Aadvised low-cholesterol diet and increasing physical activity. -Importance of low fat, low cholesterol diet and regular moderate physical activity discussed. -FLP not at goal, she is hesitant to get lab draws so we will order FLP when she is due for labs due to medication changes with her BP meds. Assessment & Plan (06/02/2023 10:18 AM EST): -Patient has self-discontinued statin medication multiple times and will not restart. -Aadvised low-cholesterol diet and increasing physical activity. -Importance of low fat, low cholesterol diet and regular moderate physical activity discussed. -FLP not at goal Assessment & Plan (06/30/2022 10:36 AM EST): -Patient has self-discontinued statin medication multiple times and will not restart. -Aadvised low-cholesterol diet and increasing physical activity. -Importance of low fat, low cholesterol diet and regular moderate physical activity discussed. -FLP not at goal Varicose veins 11/07/2017 Hyperparathyroidism 06/30/2013 Overview (07/08/2024): Hx primary hyperparathyroidism. S/p parathyroidectomy with intraoperative PTH monitoring 11/15/2013. Dx was parathyroid adenoma. -recommend biannual routine serum calcium measurements -encourage continue calcium and Vid D supplements Lab Results Component Value Date PARATHYROID 54.8 02/05/2024 PARATHYROID 93.3 (H) 06/04/2023 [id number] 39.6 02/05/2024 CREATININE 0.68 02/05/2024 CA 10.0 02/05/2024 CA 10.1 02/05/2024 Endocrinology referral placed but pt did not meet scheduling requirements. 24 hour urine calcium and cr with serum creatine, ca and albumin recommended. If urinary calcium is less than 100 mg/day, pt will need to be optimized for calcium intake 1000 mg/day to help with secondary hyperparathyroidism. -ordered repeat labs 07/08/24 Assessment & Plan (07/08/2024 10:56 AM EST): Hx primary hyperparathyroidism. S/p parathyroidectomy with intraoperative PTH monitoring 11/15/2013. Dx was parathyroid adenoma. -recommend biannual routine serum calcium measurements -encourage continue calcium and Vid D supplements Lab Results Component Value Date PARATHYROID 54.8 02/05/2024 PARATHYROID 93.3 (H) 06/04/2023 [id number] 39.6 02/05/2024 CREATININE 0.68 02/05/2024 CA 10.0 02/05/2024 CA 10.1 02/05/2024 Endocrinology referral placed but pt did not meet scheduling requirements. 24 hour urine calcium and cr with serum creatine, ca and albumin recommended. If urinary calcium is less than 100 mg/day, pt will need to be optimized for calcium intake 1000 mg/day to help with secondary hyperparathyroidism. -ordered repeat labs 07/08/24 Assessment & Plan (01/29/2024 4:46 PM EDT): Hx primary hyperparathyroidism. S/p parathyroidectomy with intraoperative PTH monitoring 11/15/2013. Dx was parathyroid adenoma. -recommend biannual routine serum calcium measurements -encourage continue calcium and Vid D supplements Lab Results Component Value Date PARATHYROID 93.3 (H) 06/04/2023 [id number] 43.9 06/04/2023 CREATININE 0.65 06/04/2023 CA 9.7 06/04/2023 Endocrinology referral placed but pt did not meet scheduling requirements. 24 hour urine calcium and cr with serum creatine, ca and albumin recommended. If urinary calcium is less than 100 mg/day, pt will need to be optimized for calcium intake 1000 mg/day to help with secondary hyperparathyroidism. Pt refuses labs at this time. Assessment & Plan (06/02/2023 10:19 AM EST): Hx primary hyperparathyroidism. S/p parathyroidectomy with intraoperative PTH monitoring 11/15/2013. Dx was parathyroid adenoma. -recommend biannual routine serum calcium measurements -continue calcium and Vid D supplements Assessment & Plan (06/30/2022 9:57 AM EST): Hx primary hyperparathyroidism. S/p parathyroidectomy with intraoperative PTH monitoring 11/15/2013. Dx was parathyroid adenoma. 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 She often reports the medications almost killed me and side effects reported include numbness, kidney swelling , total body swelling, unable to move limbs and back pain -continue to reinforce that medication to control her blood pressure will affect outcome and it does influence primary prevention of coronary artery disease, heart attack and stroke -intolerances include HCTZ, lisinopril, enalapril, atenolol, metoprolol, chlorthalidone, carvedilol, amlodipine and niphedipine -I believe we have exhausted all possibilities of pt regularly taking medications. She understands the risks of not taking medications and is competent to make that decision. - motivational interviewing done. pt strongly encouraged to continue medication even if she feels back pain or other symptoms she attributes to the medication and to discuss with me rather than stopping medication. She no showed for renal visit and refuses CDTM. - Last echo was 02/27/16 with normal EF of 55-60%. -Seen by nephrology on 07/01/2019 where 24 hr ambulatory BP monitoring was ordered and she was advised to follow up once the testing was completed but pt did not complete testing because she did not like the way the bp monitor was checking her every 30 mins -ER visit on 12/2023 reveals first degree AV block -I have strongly encouraged her to take medicaions and will refer to [facility] with our SHE Tate and cardiology on 01/29/2024 -start amlodipine 5mg/valsartan 160mg on 01/29/2024 -home BP log given -saw [facility] with our SHE Tate 02/05/24 and declined follow up - Pt was not taking her medicine, because she felt the formulation had changed. She agrees to restart 04/26/24 - BP not controlled. Continue motivational interviewing to encourage medication compliance - Pt requested decrease dose of her medication. Restart Amlodipine 2.5 mg/Valsartan 80 mg 07/08/24 She was able to verbalize understanding that this ,medication is good for her kidneys and heart. She declines home monitoring as this causes her anxiety. -ordered labs 07/08/24 Addendum 07/27/24 9:12 AM Pt called to say she is only taking amlodipine 2.5 because she feels the other medications are making her numb. She requests cardiology referral. Will place referral in hopes pt will be open to cardiology recommendations. Assessment & Plan (07/27/2024 9:13 AM EST): -uncontrolled HTN for years and multiple concerns in regards to multiple intolerance to medications. She often reports the medications almost killed me and side effects reported include numbness, kidney swelling , total body swelling, unable to move limbs and back pain -continue to reinforce that medication to control her blood pressure will affect outcome and it does influence primary prevention of coronary artery disease, heart attack and stroke -intolerances include HCTZ, lisinopril, enalapril, atenolol, metoprolol, chlorthalidone, carvedilol, amlodipine and niphedipine -I believe we have exhausted all possibilities of pt regularly taking medications. She understands the risks of not taking medications and is competent to make that decision. - motivational interviewing done. pt strongly encouraged to continue medication even if she feels back pain or other symptoms she attributes to the medication and to discuss with me rather than stopping medication. She no showed for renal visit and refuses CDTM. - Last echo was 02/27/16 with normal EF of 55-60%. -Seen by nephrology on 07/01/2019 where 24 hr ambulatory BP monitoring was ordered and she was advised to follow up once the testing was completed but pt did not complete testing because she did not like the way the bp monitor was checking her every 30 mins -ER visit on 12/2023 reveals first degree AV block -I have strongly encouraged her to take medicaions and will refer to [facility] with our SHE Tate and cardiology on 01/29/2024 -start amlodipine 5mg/valsartan 160mg on 01/29/2024 -home BP log given -saw [facility] with our SHE Tate 02/05/24 and declined follow up - Pt was not taking her medicine, because she felt the formulation had changed. She agrees to restart 04/26/24 - BP not controlled. Continue motivational interviewing to encourage medication compliance - Pt requested decrease dose of her medication. Restart Amlodipine 2.5 mg/Valsartan 80 mg 07/08/24 She was able to verbalize understanding that this ,medication is good for her kidneys and heart. She declines home monitoring as this causes her anxiety. -ordered labs 07/08/24 Addendum 07/27/24 9:12 AM Pt called to say she is only taking amlodipine 2.5 because she feels the other medications are making her numb. She requests cardiology referral. Will place referral in hopes pt will be open to cardiology recommendations. Assessment & Plan (04/27/2024 12:24 PM EST): -uncontrolled HTN for years and multiple concerns in regards to multiple intolerance to medications. She often reports the medications almost killed me and side effects reported include numbness, kidney swelling , total body swelling, unable to move limbs and back pain -continue to reinforce that medication to control her blood pressure will affect outcome and it does influence primary prevention of coronary artery disease, heart attack and stroke -intolerances include HCTZ, lisinopril, enalapril, atenolol, metoprolol, chlorthalidone, carvedilol, amlodipine and niphedipine -I believe we have exhausted all possibilities of pt regularly taking medications. She understands the risks of not taking medications and is competent to make that decision. - motivational interviewing done. pt strongly encouraged to continue medication even if she feels back pain or other symptoms she attributes to the medication and to discuss with me rather than stopping medication. She no showed for renal visit and refuses CDTM. - Last echo was 02/27/16 with normal EF of 55-60%. -Seen by nephrology on 07/01/2019 where 24 hr ambulatory BP monitoring was ordered and she was advised to follow up once the testing was completed but pt did not complete testing because she did not like the way the bp monitor was checking her every 30 mins -ER visit on 12/2023 reveals first degree AV block -I have strongly encouraged her to take medicaions and will refer to [facility] with our SHE Tate and cardiology on 01/29/2024 -start amlodipine 5mg/valsartan 160mg on 01/29/2024 -home BP log given -saw [facility] with our SHE Tate 02/05/24 and declined follow up - Pt was not taking her medicine, because she felt the formulation had changed. She agrees to restart 04/26/24 - BP not controlled. Continue motivational interviewing to encourage medication compliance Assessment & Plan (01/29/2024 4:46 PM EDT): -uncontrolled HTN for years and multiple concerns in regards to multiple intolerance to medications. She often reports the medications almost killed me and side effects reported include numbness, kidney swelling , total body swelling, unable to move limbs and back pain -continue to reinforce that medication to control her blood pressure will affect outcome and it does influence primary prevention of coronary artery disease, heart attack and stroke -intolerances include HCTZ, lisinopril, enalapril, atenolol, metoprolol, chlorthalidone, carvedilol, amlodipine and niphedipine -I believe we have exhausted all possibilities of pt regularly taking medications. She understands the risks of not taking medications and is competent to make that decision. - motivational interviewing done. pt strongly encouraged to continue medication even if she feels back pain or other symptoms she attributes to the medication and to discuss with me rather than stopping medication. She no showed for renal visit and refuses CDTM. - Last echo was 02/27/16 with normal EF of 55-60%. -Seen by nephrology on 07/01/2019 where 24 hr ambulatory BP monitoring was ordered and she was advised to follow up once the testing was completed but pt did not complete testing because she did not like the way the bp monitor was checking her every 30 mins -ER visit on 12/2023 reveals first degree AV block -I have strongly encouraged her to take medicaions and will refer to [facility] Program with our PharmD, CDCES and cardiology on 01/29/2024 -start amlodipine 5mg/valsartan 160mg on 01/29/2024 -home BP log given Assessment & Plan (06/02/2023 10:20 AM EST): -uncontrolled HTN for years and multiple concerns in regards to multiple intolerance to medications -continue to reinforce that medication to control her blood pressure will affect outcome and it does influence primary prevention of coronary artery disease, heart attack and stroke. -intolerances include HCTZ, lisinopril, enalapril, atenolol, metoprolol, chlorthalidone, carvedilol, amlodipine or niphedipine. -I believe we have exhausted all possibilities of pt regularly taking medications. She understands the risks of not taking medications and is competent to make that decision. - motivational interviewing done. pt strongly encouraged to continue medication even if she feels back pain or other symptoms she attributes to the medication and to discuss with me rather than stopping medication. She no showed for renal visit and refuses CDTM. - Last echo was 02/27/16 with normal EF of 55-60%. -Seen by nephrology on 07/01/2019 where 24 hr ambulatory BP monitoring was ordered and she was advised to follow up once the testing was completed but pt did not complete testing because she did not like the way the bp monitor was checking her every 30 mins Assessment & Plan (06/30/2022 10:02 AM EST): -uncontrolled HTN for years and multiple concerns in regards to multiple intolerance to medications -continue to reinforce that medication to control her blood pressure will affect outcome and it does influence primary prevention of coronary artery disease, heart attack and stroke. -intolerances include HCTZ, lisinopril, enalapril, atenolol, metoprolol, chlorthalidone, carvedilol, amlodipine or niphedipine. -I believe we have exhausted all possibilities of pt regularly taking medications. She understands the risks of not taking medications and is competent to make that decision. - motivational interviewing done. pt strongly encouraged to continue medication even if she feels back pain or other symptoms she attributes to the medication and to discuss with me rather than stopping medication. She no showed for renal visit and refuses CDTM. - Last echo was 02/27/16 with normal EF of 55-60%. -Seen by nephrology on 07/01/2019 where 24 hr ambulatory BP monitoring was ordered and she was advised to follow up once the testing was completed but pt did not complete testing because she did not like the way the bp monitor was checking her every 30 mins Insomnia 01/13/2012 Other abnormal Papanicolaou smear of cervix and cervical HPV 01/13/2012 Overview (07/08/2024): Pt with abnormal cervical cytology since 2008. Last 3 paps 11/2017 and 09/2016, 03/2021 all NILM HPV negative. Biological Science Technician 03/2021 NILM HPV negative Biological Science Technician 02/2019 visit without pap due to previous normal paps HPV negative. PAP 11/2017 mild inflammation, HPV not detected. PAP 09/2016 NILM PAP 08/2015 LEA 1 LGSIL PAP 06/30/14 NILM PAP 10/2013 NILM LEEP 03/2013 LEA I LSIL Cervical Bx 02/2013 LEA 2 PAP 10/2012 LEA 2-3, HGSIL Pap 03/27 LEA 1, LGSIL Cervical Bx 07/2011 LEA I 08/2011 ASCUS 01/2011 ASCUS 11/2008 LEA I 11/2007 NILM Assessment & Plan (06/02/2023 10:21 AM EST): Pt with abnormal cervical cytology since 2008. Last 2 paps 11/2017 and 09/2016, 03/2021 all NILM HPV negative. Biological Science Technician 03/2021 NILM HPV negative Biological Science Technician 02/2019 visit without pap due to previous normal paps HPV negative. PAP 11/2017 mild inflammation, HPV not detected. PAP 09/2016 NILM PAP 08/2015 LEA 1 LGSIL PAP 06/30/14 NILM PAP 10/2013 NILM LEEP 03/2013 LEA I LSIL Cervical Bx 02/2013 LEA 2 PAP 10/2012 LEA 2-3, HGSIL Pap 03/27 LEA 1, LGSIL Cervical Bx 07/2011 LEA I 08/2011 ASCUS 01/2011 ASCUS 11/2008 LEA I 11/2007 NILM Assessment & Plan (06/30/2022 9:52 AM EST): Pt with abnormal cervical cytology since 2008. Last 2 paps 11/2017 and 09/2016, 03/2021 all NILM HPV negative. Biological Science Technician 03/2021 NILM HPV negative Biological Science Technician 02/2019 visit without pap due to previous normal paps HPV negative. PAP 11/2017 mild inflammation, HPV not detected. PAP 09/2016 NILM PAP 08/2015 LEA 1 LGSIL PAP 06/30/14 NILM PAP 10/2013 NILM LEEP 03/2013 LEA I LSIL Cervical Bx 02/2013 LEA 2 PAP 10/2012 LEA 2-3, HGSIL Pap 03/27 LEA 1, LGSIL Cervical Bx 07/2011 LEA I 08/2011 ASCUS 01/2011 ASCUS 11/2008 LEA I 11/2007 NILM Resolved Problems Problem Noted Date Diagnosed Date Resolved Date Hypercholesterolemia 06/02/2023 06/02/2023 023 Physical exam 06/02/2023 01/29/2024 Overview (06/02/2023): -Normal growth and development. -Anticipatory guidance discussed. -Preventative care / harm reduction discussed. Assessment & Plan (06/02/2023 10:23 AM EST): -Normal growth and development. -Anticipatory guidance discussed. -Preventative care / harm reduction discussed. Encounters Date Type Department Care Team Description 08/09/2024 Orders Only GENERIC EXTERNAL DATA DEPARTMENT Provider, Generic External Data 07/28/[address] [phone] Ashanti Davila MD Nurse Triage 07/27/2024 Orders Only [facility] [address] [place] [phone] Ashanti Davila MD 07/23/[address] [address] Ashanti Davila MD FYI 07/08/2024 10:45 AM EST Office Visit [address] [address] Ashanti Davila MD Other specified health status (Primary Dx); Primary hypertension; Hyperparathyroidism (CMS/HCC); Dyslipidemia; Overweight; Dietary counseling; Exercise counseling; Cardiac risk counseling 07/08/2024 Travel 07/06/[address] [address] Irma Gatica MA chartprep 06/29/2024 Patient Outreach [address] [address] Ashanti Davila MD Pre-visit Planning (SDOH Screening negative and Tobacco screening negative) 05/20/[address] [address] Ashanti Davila MD Nurse Triage 05/17/[address] [address] Ashanti Davila MD Results from Last 3 Months Immunizations Name Administration Dates Next Due Influenza, IIV3, injectable 02/28/2009, 3 TD (adult), 2 Lf tetanus tox oid, preservative free, adsorbed 11/24/2003 Tdap 03/04/2018 Social History Tobacco Use Types Packs/Day Years Used Date Smoking Tobacco: Never Smokeless Tobacco: Never Tobacco Cessation:Counseling Given: Not Answered Alcohol Use Standard Drinks/Week Comments Never 0 [...] not to disclose 2021 10:17 AM EDT Last Filed Vital Signs Vital Sign Reading Time Taken Comments Blood Pressure 164/108 07/08/2024 10:49 AM EST Pulse 98 07/08/2024 10:36 AM EST Temperature 36.6 ??C (97.8 ??F) 07/08/2024 1 0:36 AM EST Respiratory Rate 20 07/08/2024 10:3 6 AM EST Oxygen Saturation 98% 07/08/2024 10: 36 AM EST Inhaled Oxygen Concentration - - Weight 65.2 kg (143 lb 12.8 oz) 025 10:36 AM EST Height 160 cm (5' 3 ) 04/26/2024 10:12 AM EST Body Mass Index 25.47 04/26/2024 10:12 AM EST Plan of Treatment Health Maintenance Due Date Last Done Comments CT Colonography 1959 FIT DNA/Cologuard 1959 FIT 1959 FOBT 1959 Sigmoidoscopy 1959 Pap Smear 07/04/2023 07/04/2020 Influenza Vaccine (#1) 2024 02/28/2009, 2002 Postponed from 02/15/2024 (Patient Refused) Pneumococcal Vaccine: 50+ Years (1 of 1 - PCV) 01/28/2025 Postponed from 2009 (Patient Refused) Zoster Vaccines (1 of 2) 01/28/2025 Pos tponed from 2009 (Patient Refused) Alcohol/Substance Use Screening 04/26/2025 04/26/2024 SDOH Screening 06/29/2025 06/29/2024 COVID-19 Vaccine ( - season) 2025 Postponed from 02/15/2024 (Patient Refused) Depression Screening 07/08/2025 07/08/2024, 07/08/19 25 Tobacco Screening 07/08/2025 07/08/2024 Cervical Cancer Screening 04/03/2026 HPV/Cotest 04/03/2026 04/03/2021, 03/16, 04/03/2021 Mammogram 05/11/2026 05/11/2024, 04/17, 04/25/2021 DTaP/Tdap/Td Vaccines (2 - Td or Tdap) 03/04/2028 03/04/2018, 11/24/2003 Lipid Panel 07/08/2029 07/08/2024, 05/17, 03/06/2022, Additional history exists Colonoscopy 12/07/2029 12/08/2019 Colorectal Cancer Screening 12/07/2029 RSV Patients and Patients Aged 60 years or older (1 - 1-dose 75+ series) 2034 Hepatitis C Screening Completed 06/04/2023 HIB Vaccines Aged Out No longer eligi [...] patient's age to complete this topic Meningococcal Vaccine Aged Out No ashok dez eligible based on patient's age to complete this topic RSV under 20 months Aged Out No longe r eligible based on patient's age to complete this topic Rotavirus Vaccines Aged Out No longer eligible based on patient's age to complete this topic Procedures Procedure Name Priority Date/Time Associated Diagnosis Comments CBC WITH AUTO DIFFERENTIAL Routine 08/09/2024 8:38 AM EST BASIC METABOLIC PANEL Routine 07/08/2024 11:25 AM EST Primary hypertension LIPID PANEL, STANDARD Routine 07/08/2024 11:25 AM EST Dyslipidemia HEPATIC FUNCTION PANEL Routine 07/08/2024 11:25 AM EST Dyslipidemia ALBUMIN, RANDOM URINE W/CREATININE Routine 07/08/2024 11:25 AM EST Primary hypertension HEPATITIS C AB W/REFL TO HCV RNA, QN, PCR Routine 06/04/2023 11:33 AM EST Routine screening for STI (sexually transmitted infection) BI MAMMOGRAM SCREENING BILATERAL Routine 05/06/2023 HPV HIGH RISK PCR Routine 04/03/2021 12: 00 AM EDT PAP SMEAR Routine 07/04/2020 12:00 AM EST HM COLONOSCOPY Routine 12/08/2019 from Last 3 Months or Most Recently Relevant to Health Maintenance Results * (ABNORMAL) CBC auto differential (08/09/2024 8:38 AM EST) White Blood Count 3.1(L) 4.8 - 10.8 X10*3/uL [facility] Red Blood Count 4.97 4.20 - 5.50 X10*6/uL [facility] Hemoglobin 14.1 12.0 - 16.0 g/dl [facility] Hematocrit 41.6 37.0 - 47.0 % [facility] Mean Corpuscular Volume 83.7 80.0 - 98.0 fL [facility] Mean Corpuscular Hemoglobin 28.4 27.0 - 33.0 pg [facility] Mean Corpuscular HGB Conc 33.9 31.0 - 35.0 g/dl [facility] Red Cell Distribution Width 13.2 11.0 - 16.0 % [facility] Platelet Count 238 160 - 400 X10*3/uL [facility] Mean Platelet Volume 9.7 9.4 - 12.3 fL [facility] Neutrophils Percent Auto 52.1 45 - 73 % [facility] Imm Gran Pct Auto 0.3 0.0 - 0.4 % [facility] Lymphocytes Percent Auto 34.4 20 - 40 % [facility] Monocytes Percent Auto 10.3 2 - 11 % [facility] Eosinophils Percent Auto 1.9 0 - 4 % [facility] Basophils Percent Auto 1.0 0 - 2 % [facility] NRBC Pct Auto 0.0 0.0 - 0.2 /100WBC [facility] Neutrophils Absolute Auto 1.6(L) 2.0 - 8.3 x10*3/uL [facility] Imm Gran Abs Auto 0.01 0.00 - 0.03 X10*3/uL [facility] Lymphocytes Absolute Auto 1.1(L) 1.2 - 4.9 X10*3/uL [facility] Monocytes Absolute Auto 0.3 0.1 - 1.2 X10*3/uL [facility] Eosinophils Absolute Auto 0.1 0.0 - 0.4 X10*3/uL [facility] Basophils Absolute Auto 0.0 0.0 - 0.2 X10*3/uL [facility] NRBC Abs Auto 0.000 0.0 - 0.012 X10*3/uL [facility] 08/09/2024 8:38 AM EST 08/09/2024 8:42 AM EST Generic External Data Provider LAB BLOOD ORDERAB LES Final Result Performing Organization Address [facility] Co de Phone Number [facility] [address] [place] [phone] * Albumin, Random Urine W/Creatinine (07/08/2024 11:25 AM EST) Creatinine, Urine 83.85 mg/dL [facility] Microalbumin Urine 8.0 mg/L [facility] Microalbum Creatinine Ratio Ur 9.5 <30 ug/mg cr [facility] Comment:Albumin/Creatinine R atio Reference Ranges: Normal: < 30 ug/mg creatinine Microalbuminuria: 30 - 300 ug/mg creatinineClinical Albuminuria: > 300 ug/mg creatinine Urine 07/08/2024 11:2 5 AM EST 07/08/2024 1:12 PM EST Ashanti Davila MD LAB URINE ORDERABLES Final Result Performing Organization Address [facility] Co de Phone Number [facility] [address] [place] [phone] * Hepatic Function Panel (07/08/2024 11:25 AM EST) Bilirubin, Total 0.6 0.0 - 1.0 mg/dL [facility] Comment:Slight Icterus. Bilirubin, Direct 0.2 0.0 - 0.5 mg/dL [facility] Comment:Slight Icterus. Aspartate Amino Transferase 22 5 - 31 U/L [facility] Alanine Aminotransferase 20 0 - 31 U/L [facility] Total Protein 7.7 6.5 - 8.0 g/dL [facility] Albumin Level 4.3 3.5 - 5.0 g/dL [facility] Alkaline Phosphatase 60 39 - 117 U/L [facility] Blood Venous blood specimen / Unknown 07/08/2024 11:25 AM EST 07/08/2024 1:22 PM EST Ashanti Davila MD LAB BLOOD ORDERABLES Final Result Performing Organization Address [facility] Co de Phone Number [facility] [address] [place] [phone] * (ABNORMAL) Lipid Panel, Standard (07/08/2024 11:25 AM EST) Triglycerides 56 <150 mg/dL [facility] Comment:Desirable Triglyceri de: less than 150 mg/dLBorderline High Triglyceride 150-199 mg/dLHigh Triglyceride: 200-499 mg/dLVery High Triglyceride: greater than or equal to 5OO mg/dL Cholesterol 230(H) <200 mg/dL [facility] Comment:Desirable Cholestero l: less than 200 mg/dLBorderline High Cholesterol: 200-239 mg/dLHigh Cholesterol: greater than 239 mg/dL LDL Cholesterol Calculated 154(H) <100 mg/dL [facility] Comment:Desirable LDL: less than 100 mg/dLNear Optimal/Above Optimal LDL: 110- 129 mg/dLBorderline High LDL: 130-159 mg/dLHigh LDL: 160-189 mg/dLVery High LDL: greater than or equal to 190 mg/dL HDL Cholesterol 65 >40 mg/dL [facility] Comment:Desirable HDL: great er than 40 mg/dL Note: This HDL assay may give artificially low results in patients with liver disease. Blood Venous blood specimen / Unknown 07/08/2024 11:25 AM EST 07/08/2024 1:22 PM EST Ashanti Davila MD LAB BLOOD ORDERABLES Final Result Performing Organization Address [facility]/ZIP Co de Phone Number [facility] [address] [place] [phone] * (ABNORMAL) Basic Metabolic Panel (07/08/2024 11:25 AM EST) Sodium 138 135 - 145 mmol/L [facility] Potassium 3.7 3.3 - 5.1 mmol/L [facility] Chloride 107 96 - 108 mmol/L [facility] Carbon Dioxide 24 22 - 29 mmol/L [facility] Anion Gap 11(L) 12 - 20 [facility] Urea Nitrogen (BUN) 7(L) 9 - 16 mg/dL [facility] Creatinine, Serum 0.62 0.5 - 1.4 mg/dL [facility] Estimated Glomerular Filt Rate >60 [facility] Comment:Chronic Kidney Disea se: Estimated GFR < 60 mL/min/[id number] Kidney Disease: Estimated GFR < 15 mL/min/1.73m2 Glucose 85 60 - 115 mg/dL [facility] Calcium 9.7 8.4 - 10.2 mg/dL [facility] Blood Venous blood specimen / Unknown 07/08/2024 11:25 AM EST 07/08/2024 1:22 PM EST Ashanti Davila MD LAB BLOOD ORDERABLES Final Result Performing Organization Address [facility] Co de Phone Number [facility] [address] [place] [phone] * Hepatitis C Antibody with Reflex to HCV, RNA, Quantitative, Real-Time PCR (06/04/2023 11:33 AM EST) Hepatitis C Antibody Nonreactive Nonreactive [facility] Comment:Antibodies to HCV no t detected; does not exclude early acuteHCV infection. Blood Venous blood specimen / Unknown 06/04/2023 11:33 AM EST 06/04/2023 1:10 PM EST Ashanti Davila MD LAB BLOOD ORDERABLES Final Result Performing Organization Address [facility]/ZIP Co de Phone Number [facility] [address] [place] [phone] * BI Mammogram Screening Bilateral (05/06/2023) Anatomical Region Laterality Modality Breast Bilateral Mammography Historical Provider IMG BI PROCEDURES Final R esult * HPV High Risk PCR (04/03/2021 12:00 AM EDT) Swab Cervical swab / Unknown Historical Provider LAB MICROBIOLOGY - GENERA L ORDERABLES Final Result Performing Organization Address [facility]/ZIP Co de Phone Number [facility] [address] [place] [phone] * Pap Smear (07/04/2020 12:00 AM EST) Swab Historical Provider LAB CYTOLOGY ORDERABLES F inal Result Performing Organization Address [facility]/ZIP Co de Phone Number [facility] [address] [place] [phone] * Colonoscopy (12/08/2019) Colonoscopy noral with Dr. Pineda Historical Provider HEALTH MAINTENANCE Final Result from Last 3 Months or Most Recently Relevant to Health Maintenance [place] [place] [address] - [employer] Advance Directives Documents on File Type Date Recorded Patient Program Assistant Expl anation Advance Directives and Living Will 01/29/2024 1:57 PM Health Care Proxy Care Teams Media Strategist Relationship Specialty Start Date End Date Easley, MD Ashanti [address] [place] [address] PCP - General Family Medicine 06/16/18 Fartun Guidry, Bebeto [address] [place] [phone] Pharmacist Internal Medicine 02/05/24 Ele Meza [address] [place] [phone] Gynecology 07/08/24
--- OUTSIDE RECORDS SUMMARY | 2024-08-09 08:47 | XMS_ITS | Encounter Summary ---
Author Organization [employer] Address [address] [place] [address] Care Team Providers Care Water Filterer Name Role Phone Ashanti Davila MD Primary Care Provider [phone] Fartun Guidry PharmD Unavailable Ele Meza Unavailable Encounter Details Date Type Department Care Team (Late st Contact Info) Description 06/30/2022 Abstract [facility] [address] [place], [place] [phone] Ashanti Davila MD [address] [place] [address] Preventative health care Social History Tobacco Use Types Packs/Day Years Used Date Smoking Tobacco: Never Smokeless Tobacco: Never Tobacco Cessation:Counseling Given: Not Answered Alcohol Use Standard Drinks/Week Comments Never 0 (1 standard drink = 0.6 oz pur e alcohol) Comments Unknown Sex and Gender Information Value Date Recorded Sex Assigned at Female 04/15/2022 10:17 AM EDT Legal Sex Female 10:17 AM EDT Gender Identity Female 04/15/2022 10:17 AM EDT Sexual Orientation Choose not to disclose 2021 10:17 AM EDT documented as of this encounter Miscellaneous Notes * Assessment & Plan Note - Ashanti Davila MD - 06/30/2022 10:03 AM EST Associated Problem(s): Dyslipidemia -Patient has self-discontinued statin medication multiple times and will not restart. -Aadvised low-cholesterol diet and increasing physical activity. -Importance of low fat, low cholesterol diet and regular moderate physical activity discussed. -FLP not at goal * Assessment & Plan Note - Ashanti Davila MD - 06/30/2022 10:02 AM EST Associated Problem(s): Hypertension -uncontrolled HTN for years and multiple concerns [...] monitor was checking her every 30 mins * Assessment & Plan Note - Ashanti Davila MD - 06/30/2022 9:57 AM EST Associated Problem(s): Atypical ductal hyperplasia of breast Hx right atypia of the breast and family history of breast cancer. S/p excision 01/2006 and 5 years of Tamoxifen. Followed by [facility]. Last visit 03/2014 -Last bilateral Mammo was negative 04/20/2019. BI-RADS 1 -b/l US on 08/06/2019 was normal -breast exam normal 10/2018 -Mammo 07/2019 BIRADS 1 negative -Mammo 04/25/2021 BIRADS 1 negative * Assessment & Plan Note - Ashanti Davila MD - 06/30/2022 9:56 AM EST Associated Problem(s): Hyperparathyroidism (CMS/HCC) Hx primary hyperparathyroidism. S/p parathyroidectomy with intraoperative PTH monitoring 11/15/2013. Dx was parathyroid adenoma. -recommend biannual routine serum calcium measurements -continue calcium and Vid D supplements * Assessment & Plan Note - Ashanti Davila MD - 06/30/2022 9:51 AM EST Associated Problem(s): Other abnormal Papanicolaou smear of cervix and cervical HPV Pt with abnormal cervical cytology since 2008. Last 2 paps 11/2017 and 09/2016, 03/2021 all NILM HPV negative. Armature Varnisher 03/2021 NILM HPV negative Armature Varnisher 02/2019 visit without pap due to previous [...] 01/2011 ASCUS 11/2008 LEA I 11/2007 NILM documented in this encounter Plan of Treatment Not on file documented as of this encounter Procedures Procedure Name Priority Date/Time Associated Diagnosis Comments LIPID PANEL, STANDARD Routine 03/06/2022 MAMMOGRAPHY Routine 04/25/2021 HPV HIGH RISK PCR Routine 04/03/2021 12: 00 AM EDT PAP SMEAR Routine 07/04/2020 12:00 AM EST COLONOSCOPY Routine 12/08/2019 documented in this encounter Results * (ABNORMAL) Lipid Panel, Standard (03/06/2022) Triglycerides 125 40 - 160 mg/dL Cholesterol 248(A) 0 - 200 mg/dL HDL Cholesterol 69 35 - 70 mg/dL LDL Cholesterol 154 mg/dL Blood Venous blood specimen / Unknown Historical Provider LAB BLOOD ORDERABLES Genna l Result * Mammography (04/25/2021) Mammogram BIRADS 1 Anatomical Region Laterality Modality Other Historical Provider HEALTH MAINTENANCE Final Result * HPV High Risk PCR (04/03/2021 12:00 AM EDT) Swab Cervical swab / Unknown [facility] Provider LAB MICROBIOLOGY - GENERA L ORDERABLES Final Result Performing Organization Address [facility] Co de Phone Number [facility] [address] [place] [phone] * Pap Smear (07/04/2020 12:00 AM EST) Swab Result [facility] Provider LAB CYTOLOGY ORDERABLES F inal Result Performing Organization Address [facility]/ZIP Co de Phone Number [facility] [address] [place] [phone] * Colonoscopy (12/08/2019) Pathologist [facility] Colonoscopy noral with Dr. Pineda Historical Provider HEALTH MAINTENANCE Final Result documented in this encounter Visit Diagnoses Diagnosis Preventative health care Routine general medical examination at a health care facility documented in this encounter Care Teams Water Filterer Relationship Specialty Start Date End Date Ashanti Davila MD [address] [place] [address] PCP - General Family Medicine 06/16/18 Fartun Guidry, MahamedD [address], [place] [phone] Pharmacist Internal Medicine 02/05/24 Ele Meza [address] [place] [phone] Gynecology 07/08/24 documented as of this encounter
--- OUTSIDE RECORDS SUMMARY | 2024-08-09 08:47 | XMS_ITS | Encounter Summary ---
Author Organization [employer] Address [address] [facility] 7t [place] [address] Care Team Providers Care Shoe Turner Name Role Phone Ashanti Davila MD Primary Care Provider [phone]- [phone] Fartun Guidry PharmD Unavailable [phone]- [phone] Ele Meza Unavailable Reason for Visit * Reason Onset Date Comments Nurse Triage 07/28/2024 Encounter Details Date Type Department Care Team (Late st Contact Info) Description 07/28/2024 Telephone [facility] [address], [place] [phone] Ashanti Davila MD [address], [place] [phone] Nurse Triage Social History Tobacco Use Types [...] your housing situation today? I have peter sing 06/29/[address] you li [...] encounter Miscellaneous Notes * Telephone Encounter - Karolyn Adler RN - 07/29/2024 9:38 AM EST TC placed to pt with S lockstitch collar setter Jorden #[id number] to f/u regarding pt visit to [facility] ED for elevated blood pressure. RN spoke directly with PCP Dr. Benz regarding this and RN was instructed to remind pt that a referral to cardiology has been planned to help manage pt hypertension. PCP also finds consulting with cardiology imperative and is more necessary that an ED F/U with PCP. PCP has documented several years of trying many different types of antihypertensive medications with the pt finding many to have negative side effects. Pt is agreeable to scheduling with cardiology for managementof her hypertension and will call back PRN. * Telephone Encounter - Soco Mauro RN - 07/28/2024 11:04 AM EST Please see below . Sent to team for [facility] ER status check PRN. * Telephone Encounter - Soco Mauro RN - 07/28/2024 10:59 AM EST No lockstitch collar setter needed as this flex o writer operator speaks Gibraltarian. [facility]. Reports having elevated BP of 163/100. Pt has not taken BP meds this morning. Per started taking meds on Friday. Per pt palpitations started after taking meds. Reports having CASAS and left sided arm and leg pain intermittetn. Denies any CP. Pt alert, speaking in clear full sentences. NO SOB per pt. Pt advised of disposition, declines this flex o writer operator contact EMS states will seek [facility] ER with private transport. Advised to call EMS if sx worsen. Pt verbalized understanding. Protocol Used: Blood Pressure - High (Adult) Protocol-Based Disposition: Go to ED Now Positive Triage Question: * Systolic BP >= 160 OR Diastolic >= 100, and any cardiac (e.g., breathing difficulty, chest pain) or neurologic symptoms (e.g., new-onset blurred or double vision) * All higher-acuity triage questions were negative Care Advice Discussed: * Reasons To Call Back - Headache, blurred vision, difficulty talking, or difficulty walking occurs - Chest pain or difficulty breathing occurs - You become worse * Telephone Encounter - Justyna Godoy - 07/28/2024 10:52 AM EST Symptoms: High Blood Pressure (163/100) - Caller Reports, Heartbeat Symptoms (Fast, Slow, or Irregular) Outcome: Transfer to a nurse or provider NOW! Reason: Weak or numb (hands) on one side of the body only The caller accepted this outcome. [phone] divehi documented in this encounter Plan of Treatment Not on file documented as of this encounter Visit Diagnoses Not on filedocumented in this encounter Additional Health Concerns Assessment Noted Time PHQ-9 Depression Total Score: 0 07/08/19 25 10:38 AM EST documented as of this encounter Care Teams Shoe Turner Relationship Specialty Start Date End Date Ashanti Davila MD [address] [place] [phone] PCP - General Family Medicine 06/16/18 Fartun Guidry, MahamedD [address] [place] [address] Pharmacist Internal Medicine 02/05/24 Ele Meza [address] [place] [phone] Gynecology 07/08/24 documented as of this encounter
--- OUTSIDE RECORDS SUMMARY | 2024-08-09 08:47 | XMS_ITS | Encounter Summary ---
Author Organization [employer] Address [address] [facility] 7t [place] [address] Care Team Providers Care Snuff Drier Name Role Phone Ashanti Montenegro MD Primary Care Provider +- [phone] Fartun Guidry PharmD Unavailable [phone]- [phone] Ele Meza Unavailable Reason for Referral * Consultation (Routine) - Authorized Specialty Diagnoses / Procedures Referred By Contac t Referred To Contact Cardiology Diagnoses Primary hypertension Ashanti Montenegro MD [address] [place] [phone] Phone: tel: fax: Marshall De La Paz MD [address] [place] [address] Phone: tel: fax: Referral ID Status Reason Start Date Expiration Date Visits Requested Visits Authorized [id number] Authorized Specialty Services Required 07/27/2024 07/27/2025 1 1 Reason for Visit * Reason Comments Annual Exam Encounter Details Date Type Department Care Team (Late st Contact Info) Description 07/08/2024 10:45 AM EST Office Visit [facility] [address] [place] [phone] Ashanti Montenegro MD [address] [place] [phone] Other specified health status (Primary Dx); Primary hypertension; Hyperparathyroidism (CMS/HCC); Dyslipidemia; Overweight; Dietary counseling; Exercise counseling; Cardiac risk counseling Social History Tobacco Use Types Packs/Day Years [...] AM EDT documented as of this encounter Last Filed Vital Signs Vital Sign Reading [...] 12.8 oz) 025 10:36 AM EST Height - - Body Mass Index 25.47 04/26/2024 10:12 AM EST documented in this encounter Progress Notes * Ashanti Montenegro MD - 07/08/2024 10:45 AM EST Michele Serna is a 64 y.o. female with PMHx of hypertension, hyperparathyroidism, ductal hyperplasia, and dyslipidemia who presents to the office today for chronic medical conditions and comprehensive annual evaluation. She has a long-standing history of multiple intolerances to medications and has self-discontinued dozens of medications over the years. Referred to [facility] Program with our PharmDSHE on 01/29/24. Seen by [facility] with our PharmDSHE on 02/05/24. Recommended continue current therapy and monitoring. Pt declined follow up. A usual pt reported she has not been taking her BP medication as the does is too strong , giving her bruising and making her arms numb. She reports she will try her amlodipine-valsartan combo medication again if the does could be decreased. Social History Tobacco: denied Drugs: none Alcohol: No Suicide/Depression: The patient denies any present symptoms of depression or anxiety. Review of Systems Constitutional: Negative for fatigue, fever and unexpected weight change. Respiratory: Negative for cough. Cardiovascular: Negative for chest pain. Gastrointestinal: Negative for abdominal pain. Genitourinary: Negative for difficulty urinating. 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 S/p excision 01/2006 and 5 years of Tamoxifen. Followed by [facility]. Last visit 03/2014 -Last bilateral Mammo was negative 04/20/2019. 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 S/p parathyroidectomy with intraoperative PTH monitoring 11/15/2013. Dx was parathyroid adenoma. -recommend biannual routine serum calcium measurements -encourage continue calcium and Vid D supplements Lab Results Component Value Date PARATHYROID 54.8 02/05/2024 PARATHYROID 93.3 (H) 06/04/2023 [id number] Hypertension 01/13/2012 -uncontrolled HTN for years and multiple concerns in regards to multiple intolerance to medications. She often reports the medications almost killed me and side effects reported include numbness, kidney swelling , total body swelling, unable to move limbs and back pain -continue to reinforce that medication to control her blood pressure will affect outcome and it does influence primary prevent Past Surgical History: Procedure Laterality Date EYE SURGERY Left HERNIA REPAIR No family history on file. Objective Visit Vitals BP (!) 164/108 (BP Location: Right arm) Pulse 98 Temp 97.8 ??F (36.6 ??C) (Temporal) Resp 20 Wt 143 lb 12.8 oz (65.2 kg) SpO2 98% BMI 25.47 kg/m?? Smoking Status Never BSA 1.7 m?? Physical Exam Constitutional: Appearance: Normal appearance. HENT: Head: Normocephalic. Right Ear: Tympanic membrane normal. Left Ear: Tympanic membrane normal. Mouth/Throat: Pharynx: Oropharynx is clear. Eyes: Pupils: Pupils are equal, round, and reactive to light. Cardiovascular: Rate and Rhythm: Normal rate and regular rhythm. Heart sounds: Normal heart sounds. Pulmonary: Effort: Pulmonary effort is normal. Breath sounds: Normal breath sounds. Chest: Breasts: Nick Score is 5. Breasts are symmetrical. Right: Normal. No inverted nipple, mass, nipple discharge or skin change. Left: Normal. No inverted nipple, mass, nipple discharge or skin change. Abdominal: General: Abdomen is flat. Palpations: There is no mass. Tenderness: There is no abdominal tenderness. Musculoskeletal: General: Normal range of motion. Cervical back: Normal range of motion and neck supple. Lymphadenopathy: Cervical: No cervical adenopathy. Upper Body: Right upper body: No supraclavicular or axillary adenopathy. Left upper body: No supraclavicular or axillary adenopathy. Skin: General: Skin is warm and dry. Neurological: General: No focal deficit present. Mental Status: She is alert. Psychiatric: Behavior: Behavior normal. 64 y.o. female annual evaluation. Problem List Items Addressed This Visit Hypertension -uncontrolled HTN for years and multiple [...] pt will be open to cardiology recommendations. Relevant Medications amLODIPine (Norvasc) 2.5 MG tablet valsartan (Diovan) 80 MG tablet Other Relevant Orders Albumin, Random Urine W/Creatinine (Completed) Basic Metabolic Panel (Completed) Referral to Cardiology Hyperparathyroidism ([facility]) Hx primary hyperparathyroidism. S/p parathyroidectomy with intraoperative PTH monitoring 11/15/2013. Dx was parathyroid adenoma. -recommend biannual routine serum calcium measurements -encourage continue calcium and Vid D supplements Lab Results Component Value Date PARATHYROID 54.8 02/05/2024 PARATHYROID 93.3 (H) 06/04/2023 [id number] 39.6 02/05/2024 CREATININE 0.68 02/05/2024 CA 10.0 02/05/2024 CA 10.1 02/05/2024 Endocrinology referral placed but pt did not meet scheduling requirements. 24 hour urine calcium and cr with serum creatine, ca and albumin recommended. If urinary calcium is less than 100 mg/day, ptwill need to be optimized for calcium intake 1000 mg/day to help with secondary hyperparathyroidism. -ordered repeat labs 07/08/24 Dyslipidemia Lab Results Component Value Date CHOL 224 [...] her BP meds. -ordered repeat labs 07/08/24 Relevant Orders Hepatic Function Panel (Completed) Lipid Panel, Standard (Completed) Overweight -ordered routine labs 07/08/24 Dietary counseling Exercise Recommendations: At least 150 minutes of moderate-intensity physical activity per week, or an equivalent combinationof moderate- and vigorous-intensity activity Exercise counseling Dietary Recommendations: Fruits, vegetables, whole grains, protein foods, and fat-free or low-fat dairy products are healthychoices. Eat different types of protein foods in your diet. This can include seafood, lean meats, poultry, beans, peas, lentils, nuts, seeds, soy products, and eggs. Limit foods and beverages higher in added sugars, saturated fat, and sodium. Cardiac risk counseling Calculated 07/08/24 : Intermediate risk The 10-year [...] reports many having many of the side effectsand feeling like she is dying and that the medications are killing her. We also discussed coping str ategies and a plan, including continuing a healthy lifestyle, being active in her hoahaoism and prayer, relaxation techniques, and patient agreed to seeing [facility] with our PharmD, SHE as well as cardiology. Pt saw CDTM once and the declined follow-up. Other specified health status - Primary -next physical exam 07/08/25 -eye exams encouraged due to blind in left eye -dental home is [facility] -health care proxy filed 01/29/2024 Annual Evaluation -Normal growth and development. -Anticipatory guidance discussed. -Preventative care / harm reduction discussed. Follow up in about 6 months (around 01/05/2025) for HTN. I, Samantha Rodríguez, am serving as a scribe to document services personally performed by Dr. Berg, based on the patient's response to questions by provider and providers statements to me. documented in this encounter Miscellaneous Notes * Assessment & Plan Note - Samantha Rodríguez - 07/08/2024 10:57 AM ESTAssociated Problem(s): Overweight -ordered routine labs 07/08/24 * Assessment & Plan Note - Samantha Rodríguez - 07/08/2024 10:51 AM ESTAssociated Problem(s): Other specified health status -next physical exam 07/08/25 -eye exams encouraged due to blind in left eye -dental home is [facility] -health care proxy filed 01/29/2024 * Assessment & Plan Note - Samantha Rodríguez - 07/08/2024 10:51 AM ESTAssociated Problem(s): Dyslipidemia Lab Results Component Value Date CHOL 224 [...] her BP meds. -ordered repeat labs 07/08/24 * Assessment & Plan Note - Samantha Rodríguez - 07/08/2024 10:50 AM ESTAssociated Problem(s): Cardiac risk counseling Calculated 07/08/24 : Intermediate risk The 10-year [...] reports many having many of the side effectsand feeling like she is dying and that the medications are killing her. We also discussed coping str ategies and a plan, including continuing a healthy lifestyle, being active in her hoahaoism and prayer, relaxation techniques, and patient agreed to seeing [facility] with our PharmD, CDCSTEVE as well as cardiology. Pt saw CDTM once and the declined follow-up. * Assessment & Plan Note - Samantha Rodríguez - 07/08/2024 10:46 AM ESTAssociated Problem(s): Hyperparathyroidism ([facility]) Hx primary hyperparathyroidism. S/p parathyroidectomy with intraoperative PTH monitoring 11/15/2013. Dx was parathyroid adenoma. -recommend biannual routine serum calcium measurements -encourage continue calcium and Vid D supplements Lab Results Component Value Date PARATHYROID 54.8 02/05/2024 PARATHYROID 93.3 (H) 06/04/2023 [id number] 39.6 02/05/2024 CREATININE 0.68 02/05/2024 CA 10.0 02/05/2024 CA 10.1 02/05/2024 Endocrinology referral placed but pt did not meet scheduling requirements. 24 hour urine calcium and cr with serum creatine, ca and albumin recommended. If urinary calcium is less than 100 mg/day, ptwill need to be optimized for calcium intake 1000 mg/day to help with secondary hyperparathyroidism. -ordered repeat labs 07/08/24 * Assessment & Plan Note - Samantha Rodríguez - 07/08/2024 10:46 AM ESTAssociated Problem(s): Hypertension -uncontrolled HTN for years and [...] pt will be open to cardiology recommendations. * Addendum Note - Ashanti Montenegro MD - 07/08/2024 10:45 AM ESTAddended by: ASHANTI MONTENEGRO on: 07/27/2024 09:15 AM Modules accepted: Orders * Assessment & Plan Note - Samantha Rodríguez - 07/08/2024 10:44 AM ESTAssociated Problem(s): Dietary counseling Exercise Recommendations: At least 150 minutes of moderate-intensity physical activity per week, or an equivalent combinationof moderate- and vigorous-intensity activity * Assessment & Plan Note - Samantha Rodríguez - 07/08/2024 10:44 AM ESTAssociated Problem(s): Exercise counseling Dietary Recommendations: Fruits, vegetables, whole grains, protein foods, and fat-free or low-fat dairy products are healthychoices. Eat different types of protein foods in your diet. This can include seafood, lean meats, poultry, beans, peas, lentils, nuts, seeds, soy products, and eggs. Limit foods and beverages higher in added sugars, saturated fat, and sodium. documented in this encounter Plan of Treatment Scheduled Referrals Name Type Priority Associated Diagnoses Orde r Schedule Referral to Cardiology Outpatient Referral Routine Primary hypertension Expected: 07/27/2024 (Approximate), Expires: 07/27/2025 documented as of this encounter Procedures Procedure Name Priority Date/Time Associated Diagnosis Comments ALBUMIN, RANDOM URINE W/CREATININE Routine 07/08/2024 11:25 AM EST Primary hypertension HEPATIC FUNCTION PANEL Routine 07/08/2024 11:25 AM EST Dyslipidemia LIPID PANEL, STANDARD Routine 07/08/2024 11:25 AM EST Dyslipidemia BASIC METABOLIC PANEL Routine 07/08/2024 11:25 AM EST Primary hypertension documented in this encounter Results * (ABNORMAL) Basic Metabolic Panel (07/08/2024 11:25 AM EST) Pathologist [facility] Sodium 138 135 - 145 mmol/L [facility] Potassium 3.7 3.3 - 5.1 mmol/L [facility] Chloride 107 96 - 108 mmol/L [facility] Carbon Dioxide 24 22 - 29 mmol/L [facility] Anion Gap 11(L) 12 - 20 [facility] Urea Nitrogen (BUN) 7(L) 9 - 16 mg/dL [facility] Creatinine, Serum 0.62 0.5 - 1.4 mg/dL [facility] Estimated Glomerular Filt Rate >60 [facility] Comment:Chronic Kidney Disea se: Estimated GFR < 60 mL/min/[id number] Kidney Disease: Estimated GFR < 15 mL/min/1.73m2 Glucose 85 60 - 115 mg/dL [facility] Calcium 9.7 8.4 - 10.2 mg/dL [facility] Blood Venous blood specimen / Unknown 07/08/2024 11:25 AM EST 07/08/2024 1:22 PM EST us Ashanti Montenegro MD LAB BLOOD ORDERABLES Final Result [facility] [address] [place] [phone] * (ABNORMAL) Lipid Panel, Standard (07/08/2024 11:25 AM EST) Pathologist [facility] Triglycerides 56 <150 mg/dL [facility] Comment:Desirable Triglyceri de: less than 150 mg/dLBorderline High Triglyceride 150-199 mg/dLHigh Triglyceride: 200-499 mg/dLVery High Triglyceride: greater than or equal to 5OO mg/dL Cholesterol 230(H) <200 mg/dL [facility] Comment:Desirable Cholestero l: less than 200 mg/dLBorderline High Cholesterol: 200-239 mg/dLHigh Cholesterol: greater than 239 mg/dL LDL Cholesterol Calculated 154(H) <100 mg/dL [facility] Comment:Desirable LDL: less than 100 mg/dLNear Optimal/Above Optimal LDL: 110- 129 mg/dLBorderline High LDL: 130-159 mg/dLHigh LDL: 160-189 mg/dLVery High LDL: greater than or equal to 190 mg/dL HDL Cholesterol 65 >40 mg/dL [facility] Comment:Desirable HDL: great er than 40 mg/dL Note: This HDL assay may give artificially low results in patients with liver disease. Blood Venous blood specimen / Unknown 07/08/2024 11:25 AM EST 07/08/2024 1:22 PM EST Ashanti Montenegro MD LAB BLOOD ORDERABLES Final Result Performing Organization Address [facility] Co de Phone Number [facility] [address] [place] [phone] * Hepatic Function Panel (07/08/2024 11:25 AM EST) Bilirubin, Total 0.6 0.0 - 1.0 mg/dL [facility] Comment:Slight Icterus. Bilirubin, Direct 0.2 0.0 - 0.5 mg/dL [facility] Comment:Slight Icterus. Aspartate Amino Transferase 22 5 - 31 U/L [facility] Alanine Aminotransferase 20 0 - 31 U/L [facility] Total Protein 7.7 6.5 - 8.0 g/dL [facility] Albumin Level 4.3 3.5 - 5.0 g/dL [facility] Alkaline Phosphatase 60 39 - 117 U/L [facility] Blood Venous blood specimen / Unknown 07/08/2024 11:25 AM EST 07/08/2024 1:22 PM EST Ashanti Montenegro MD LAB BLOOD ORDERABLES Final Result Performing Organization Address [facility] Co de Phone Number [facility] [address] [place] [phone] * Albumin, Random Urine W/Creatinine (07/08/2024 11:25 AM EST) Creatinine, Urine 83.85 mg/dL [facility] Microalbumin Urine 8.0 mg/L [facility] Microalbum Creatinine Ratio Ur 9.5 <30 ug/mg cr [facility] Comment:Albumin/Creatinine R atio Reference Ranges: Normal: < 30 ug/mg creatinine Microalbuminuria: 30 - 300 ug/mg creatinineClinical Albuminuria: > 300 ug/mg creatinine Urine 07/08/2024 11:2 5 AM EST 07/08/2024 1:12 PM EST us Ashanti Montenegro MD LAB URINE ORDERABLES Final Result [facility] [address] [place] [phone] documented in this encounter Visit Diagnoses Diagnosis Other specified health status- Primary Primary hypertension Unspecified essential hypertension Hyperparathyroidism (CMS/HCC) Hyperparathyroidism, unspecified Dyslipidemia Other and unspecified hyperlipidemia Overweight Dietary counseling Dietary surveillance and counseling Exercise counseling Cardiac risk counseling documented in this encounter Additional Health Concerns Assessment Noted Time PHQ-9 Depression Total Score: 0 07/08/19 10:38 AM EST documented as of this encounter Care Teams Snuff Drier Relationship Specialty Start Date End Date Ashanti Montenegro MD [address] [place] [address] PCP - General Family Medicine 06/16/18 Fartun Guidry, MahamedD [address] [place] [address] Pharmacist Internal Medicine 02/05/24 Ele Meza [address] [place] [phone] Gynecology 07/08/24 documented as of this encounter
--- OUTSIDE RECORDS SUMMARY | 2024-08-09 08:47 | XMS_ITS | Encounter Summary ---
Author Organization [employer] Address [address] [facility] [address] [place] [address] Care Team Providers Care Administration Manager Name Role Phone Ashanti Davila MD Primary Care Provider [phone]- [phone] Fartun Guidry PharmD Unavailable Ele Meza Unavailable Reason for Visit * Reason Onset Date Comments FYI 07/23/2024 Encounter Details Date Type Department Care Team (Late st Contact Info) Description 07/23/2024 Telephone [facility] [address] [place], [place] [phone] Ashanti Davila MD [address] [place], [place] [phone] FYI Social History Tobacco Use Types Packs/Day Years [...] Encounter - Karolyn Adler RN - 07/29/2024 9:35 AM EST TC placed to pt with S full time staff interpreter Jorden #[id number] to inform and advise of the cardiology referralthat was placed by Dr. Machuca's on 07/27/2024 for uncontrolled hypertension. Pt instructed that nuvia be contacted either by mail or phone by the cardiology office to schedule the initial consultation appointment. Pt stated understanding of this information and had no further questions or concerns. * Telephone Encounter - Justyna Godoy - 07/28/2024 10:58 AM EST Tc from pt returning phone call. [phone] jordanian * Telephone Encounter - Karolyn Adler RN - 07/27/2024 9:45 AM EST TC placed to pt and LVM to call back the office in regards to referral being placed to cardiology * Telephone Encounter - Karolyn Adler RN - 07/26/2024 9:20 AM EST TC placed to pt with [facility] full time staff interpreter Dimitri #[id number] to inform and advise of PCP Dr. Machuca's message regarding medication compliance. Pt informed that the side effects of the antihypertensive medications have been presented in length by Dr. Machuca'bg along with the risks of not taking them. The pt was aware of this information and stated understanding of them but is still agreeable to taking the Amlodipine 2.5 MG medication ONLY. While on the call the pt did put in a request for a cardiology referral which she said has been discussed about with PCP. RN did not see a cardiology referral in thechart but told the pt that this information will be sent to Dr. Machuca's for review and advisement. * Telephone Encounter - Karolyn Adler RN - 07/23/2024 3:08 PM EST TC placed to pt with S full time staff interpreter Moustapha #[id number] to inquire on concerns with Amlodipine and Valartan medications. Pt states that when taking both these antihypertensive medications together they have been causing a high heart rate, left leg and arm pain. Pt denies chest pain, SOB, N/V or CASAS. Pt has been off these medications for over a week now. RN inquired with the pt if she has been taking any home blood pressure readings since being off the medication and the pt stated no. Of note, the pt did have a high BP reading at [facility] on 07/08/2024 of 164/108. Per provider notes the pt has exhausted all possibilities of taking regular medications. The pt was told the risks of not taking the blood pressure medications and the pt would like to just be on the Amlodipine 2.5 MG. Pt informed that this information will be sent to PCP for review and advisement. * Telephone Encounter - Justyna Godoy - 07/23/2024 1:48 PM EST Tc from pt to report had tachycardia after use of amLODIPine (Norvasc) 2.5 MG tablet and valsartan (Diovan) 80 MG tablet. Pt states stopped taking medications and feels better. No symptomstoday 07/23. [phone] (jordanian) documented in this encounter Plan of Treatment Not on file documented as of this encounter Visit Diagnoses Not on filedocumented in this encounter Additional Health Concerns Assessment Noted Time PHQ-9 Depression Total Score: 0 07/08/19 10:38 AM EST documented as of this encounter Care Teams Administration Manager Relationship Specialty Start Date End Date Ashanti Davila MD [address] [place] [address] PCP - General Family Medicine 06/16/18 Fartun Guidry PharmD [address] [place] [address] Pharmacist Internal Medicine 02/05/24 Ele Meza [address] [place] [id number] Gynecology 07/08/24 documented as of this encounter
--- OUTSIDE RECORDS SUMMARY | 2024-08-09 08:48 | XMS_ITS | Clinical Summary ---
Author Organization [facility] Address [address] [place] [address] Phone Care Team Providers Care Chemist Steroids Name Role Phone Physician, Pcp Unknown Primary Care Provider Kristina vailable Allergies No known active allergies Encounters Date Type Department Care Team Description 07/28/2024 12:08 PM EST - 07/28/2024 10:33 PM EST Emergency [facility] Emergency [address] [place] [address] Discharge Disposition: ED Dismiss - Never Arrived from Last 3 Months Social History Tobacco Use Types Packs/Day Years Used Date Smoking Tobacco: Never Assessed Comments Unknown Sex and Gender Information Value Date Recorded Sex Assigned at Female 07/28/2024 10:21 PM EST Legal Sex Female 9:48 AM EST Gender Identity Female 07/28/2024 10:21 PM EST Sexual Orientation Choose not to disclose 2024 10:21 PM EST Last Filed Vital Signs Vital Sign Reading Time Taken Comments Blood Pressure 196/116 07/28/2024 7:27 PM EST Pulse 85 07/28/2024 7:27 PM EST Temperature 36.9 ??C (98.4 ??F) 07/28/2024 7:27 PM ES T Respiratory Rate 16 07/28/2024 7:27 PM EST Oxygen Saturation 99% 07/28/2024 7:27 PM EST Inhaled Oxygen Concentration - - Weight 63.5 kg (140 lb) 07/28/2024 12:54 PM EST Height 160 cm (5' 3 ) 07/28/2024 12:54 PM EST Body Mass Index 24.8 07/28/2024 12:54 PM EST Plan of Treatment Health Maintenance Due Date Last Done Comments Breast Cancer Screening 1960 Pneumococcal Vaccine: 50+ Years (1 of 1 - PCV) 2009 Zoster Vaccines (1 of 2) 2009 Colorectal Cancer Screening: Colonoscopy 05/14/2022 Medicare Annual Wellness Visit 05/14/2022 Osteoporosis Screening (Bone Density Screening) 05/14/2022 Social Influencers of Health Screening 05/14/2022 Cervical Cancer Screening: P ap Smear 07/04/2023 07/04/2020 Falls Risk Assessment 01/10/2024 COVID-19 Vaccine (1 - 2023-2 5 season) 2024 Influenza Vaccine (#1) 2024 9, 04/19/2003 Depression Screening 07/08/2025 07/08/2024 Hypertension/CHF/CAD Annual BMP Blood Test 07/28/2025 07/28/2024, 07/08/2024 DTaP,Tdap,and Td Vaccines (3 - Td or Tdap) 03/04/2028 03/04/2018, 11/24/2003 Cholesterol Screening (Lipid Panel) 07/08/2029 07/08/2024 RSV Immunization Patients 60 + Years Old (1 - 1-dose 75+ series) 2034 Hepatitis [...] patient's age to complete this topic Meningococcal B Vacine Aged Out No lo nger eligible based on patient's age to complete this topic Pneumococcal Vaccine: Pediatrics (0 to 5 Years) and At-Risk Patients (6 to 64 Years) Aged Out No longer eligible b ased on patient's age to complete this topic RSV Immunization Patients Under 20 months Aged Out No longer eligible b ased on patient's age to complete this topic Varicella Vaccines Aged Out No longer eligible based on patient's age to complete this topic Procedures Procedure Name Priority Date/Time Associated Diagnosis Comments ECG ANNOTATED 07/30/2024 ECG ANNOTATED 07/29/2024 ECG 12-LEAD STAT 07/28/2024 4:19 PM EST TROPONIN I HIGH SENSITIVITY STAT 07/28/2024 4:16 PM EST XR CHEST 2 VIEWS STAT 07/28/2024 3:14 PM EST CBC WITH AUTO DIFFERENTIAL STAT 07/28/2024 3:00 PM EST B-TYPE NATRIURETIC PEPTIDE STAT 07/28/2024 3:00 PM EST MAGNESIUM STAT 07/28/2024 3:00 PM EST LIPASE STAT 07/28/2024 3:00 PM EST COMPREHENSIVE METABOLIC PANEL STAT 07/28/2024 3:00 PM EST CBC AND DIFFERENTIAL STAT 07/28/2024 3:00 PM EST TROPONIN I HIGH SENSITIVITY STAT 07/28/2024 3:00 PM EST ECG 12-LEAD STAT 07/28/2024 12:17 PM EST from Last 3 Months Results * ECG-Annotated (07/30/2024) Only the most recent of2 resultswithin the time period is included. Provider Onbase MD ECG ORDERABLES Final Result * ECG 12 lead (07/28/2024 4:19 PM EST) Only the most recent of2 resultswithin the time period is included. Ventricular Rate ECG 81 BPM GEMUSE Atrial Rate 81 BPM GEMUSE P-R Interval 218 ms GEMUSE QRS Duration 76 ms GEMUSE Q-T Interval 356 ms GEMUSE QTc 413 ms GEMUSE P Wave Boomer 51 degrees GEMUSE R Boomer 9 degrees GEMUSE T Boomer 29 degrees GEMUSE ECG Interpretation Sinus rhythm with 1st degree A-V block Minimal voltage criteria for LVH, may be normal variant Borderline ECG When compared with ECG of 28-JUL-2024 12:17, No significant change was found Confirmed by AMILCAR AUGUSTINE ([id number]) on 08/01/2024 8:35:47 AM GEMUSE 07/28/2024 4:19 PM EST 08/01/2024 8:35 AM EST Jeradloki Miner MD ECG ORDERABLES Final Result Performing Organization Address [facility] de Phone Number GEMUSE * Troponin I high sensitivity (07/28/2024 4:16 PM EST) Only the most recent of2 resultswithin the time period is included. High Sensitivity Troponin I 8 <=54 ng/L LAB CHEMISTRY METHOD 07/28/2024 5:[address] [facility] Blood Venous blood specimen / Unknown Venipuncture / Unknown 07/28/2024 4:16 PM EST 07/28/2024 4:[address] [facility] - 07/28/2024 5:06 PM EST High levels of biotin in samples may falsely decrease hsTroponin values. ??Use caution when interpreting hsTroponin results in patients taking biotin who exhibit renal impairment (eGFR <60) or in patients taking more than 20 mg/day of biotin. Jerad Miner MD LAB BLOOD ORDERABLES Final Resu lt Performing Organization Address [facility] de Phone Number [facility] [address] [place] [address], [place] [phone] * XR Chest 2 Views (07/28/2024 3:14 PM EST) Anatomical Region Laterality Modality Body Radiographic Sapphire ging 07/28/2024 3:31 PM EST Impressions 07/28/2024 3:31 PM EST FINDINGS/IMPRESSION: NO ACUTE FINDINGS. Normal heart size and pulmonary vascularity. ??Lungs are clear and costophrenic angles are sharp. ??No acute osseous abnormality. -------- FINAL REPORT -------- Dictated By: Indio Nascimento Dictated Date: 07/28/2024 15:31 ET Assigned Physician: Indio Nascimento Reviewed and Electronically Signed By: Indio Nascimento Signed Date: 07/28/2024 15:31 ET Workstation ID: [id number] Transcribed By: Self Edit Transcribed Date: 07/28/2024 15:31 ET Narrative 07/28/2024 3:31 PM EST XR CHEST 2 VIEWS INDICATION: chest pain TECHNIQUE: XR CHEST 2 VIEWS COMPARISON: No priors available. Procedure Note Indio Nascimento MD - 07/28/2024 XR CHEST 2 VIEWS INDICATION: chest pain TECHNIQUE: XR CHEST 2 VIEWS COMPARISON: No priors available. IMPRESSION: FINDINGS/IMPRESSION: NO ACUTE FINDINGS. Normal heart size and pulmonary vascularity. Lungs are clear andcostophrenic angles are sharp. No acute osseous abnormality. -------- FINAL REPORT -------- Dictated By: Indio Nascimento Dictated Date: 07/28/2024 15:31 ET Assigned Physician: Indio Nascimento Reviewed and Electronically Signed By: Indio Nascimento Signed Date: 07/28/2024 15:31 ET Workstation ID: [id number] Transcribed By: Self Edit Transcribed Date: 07/28/2024 15:31 ET Jerad Miner MD IMG XR PROCEDURES Final Result * CBC auto differential (07/28/2024 3:00 PM EST) WBC 4.9 4.8 - 10.8 K/mcL LAB HEMETOLOGY METHOD 07/28/2024 4:[address] [facility] RBC 4.70 3.80 - 4.80 M/mcL LAB HEMETOLOGY METHOD 07/28/2024 4:[address] [facility] Hemoglobin 13.4 11.5 - 16.0 g/dL LAB HEMETOLOGY METHOD 07/28/2024 4:[address] [facility] Hematocrit 41.6 35.0 - 47.0 % LAB HEMETOLOGY METHOD 07/28/2024 4:28 PM [facility] MCV 87.9 79.0 - 98.0 FL LAB HEMETOLOGY METHOD 07/28/2024 4:28 PM [facility] MCH 28.3 27.0 - 32.0 pcg LAB HEMETOLOGY METHOD 07/28/2024 4:28 PM [facility] MCHC 32.2 32.0 - 37.0 g/dL LAB HEMETOLOGY METHOD 07/28/2024 4:28 PM [facility] RDW 13.1 11.0 - 15.0 % LAB HEMETOLOGY METHOD 07/28/2024 4:28 PM [facility] Platelets 297 130 - 400 K/mcL LAB HEMETOLOGY METHOD 07/28/2024 4:28 PM [facility] MPV 10.5 7.0 - 11.0 FL LAB HEMETOLOGY METHOD 07/28/2024 4:28 PM [facility] NRBC 0.0 <1.0 % LAB HEMETOLOGY METHOD 07/28/2024 4:28 PM [facility] NRBC Absolute 0.00 <0.10 K/mcL LAB HEMETOLOGY METHOD 07/28/2024 4:28 PM [facility] Neutrophils Relative 68.4 % LAB HEMETOLOGY METHOD 07/28/2024 4:28 PM [facility] Lymphocytes Relative 23.3 % LAB HEMETOLOGY METHOD 07/28/2024 4:28 PM [facility] Monocytes Relative 7.3 % LAB HEMETOLOGY METHOD 07/28/2024 4:28 PM [facility] Eosinophils Relative 0.4 % LAB HEMETOLOGY METHOD 07/28/2024 4:28 PM [facility] Basophils Relative 0.4 % LAB HEMETOLOGY METHOD 07/28/2024 4:[address] [facility] Immature Granulocytes Relative 0.2 % LAB HEMETOLOGY METHOD 07/28/2024 4:[address] [facility] Neutrophils Absolute 3.38 1.50 - 7.00 [facility] LAB HEMETOLOGY METHOD 07/28/2024 4:28 PM [facility] Lymphocytes Absolute 1.15 1.00 - 5.00 K/mcL LAB HEMETOLOGY METHOD 07/28/2024 4:28 PM [facility] Monocytes Absolute 0.36 0.20 - 1.00 K/mcL LAB HEMETOLOGY METHOD 07/28/2024 4:28 PM [facility] Eosinophils Absolute 0.02 0.00 - 0.50 [facility] LAB HEMETOLOGY METHOD 07/28/2024 4:28 PM [facility] Basophils Absolute 0.02 0.00 - 0.20 K/mcL LAB HEMETOLOGY METHOD 07/28/2024 4:28 PM [facility] Immature Granulocytes Absolute 0.01 0.00 - 0.03 K/mcL LAB HEMETOLOGY METHOD 07/28/2024 4:28 PM [facility] Blood Venous blood specimen / Unknown Venipuncture / Unknown 07/28/2024 3:00 PM EST 07/28/2024 4:15 PM EST us Jerad Phyllis Miner MD LAB BLOOD ORDERABLES Final Resu lt [facility]) [facility] [address] [place] [address], * B-type natriuretic peptide (07/28/2024 3:00 PM EST) BNP 12 <=100 pcg/mL LAB CHEMISTRY METHOD 07/28/2024 4:[address] [facility] Blood Venous blood specimen / Unknown Venipuncture / Unknown 07/28/2024 3:00 PM EST 07/28/2024 4:15 PM EST us Jerad Miner MD LAB BLOOD ORDERABLES Final Resu lt Performing Organization Address [facility] de Phone Number [facility] [address] [place] [address], [place] [phone] * (ABNORMAL) Magnesium (07/28/2024 3:00 PM EST) Pathologist [facility] Magnesium 2.7(H) 1.9 - 2.6 mg/dL LAB CHEMISTRY METHOD 07/28/2024 4:[address] [facility] Blood Venous blood specimen / Unknown Venipuncture / Unknown 07/28/2024 3:00 PM EST 07/28/2024 4:15 PM EST us Jerad Miner MD LAB BLOOD ORDERABLES Final Resu lt Performing Organization Address [facility] de Phone Number [facility] [address] [place] [address], [place] [phone] * Lipase (07/28/2024 3:00 PM EST) [facility] Lipase 26 13 - 75 unit/L LAB CHEMISTRY METHOD 07/28/2024 4:[address] [facility] Blood Venous blood specimen / Unknown Venipuncture / Unknown 07/28/2024 3:00 PM EST 07/28/2024 4:15 PM EST us Jerad Miner MD LAB BLOOD ORDERABLES Final Resu lt Performing Organization Address [facility] de Phone Number [facility] [address] [place] [address], [place] [phone] * Comprehensive metabolic panel (07/28/2024 3:00 PM EST) [facility] Sodium 137 133 - 145 mmol/L LAB CHEMISTRY METHOD 07/28/2024 4:53 PM [facility] Potassium 4.1 3.5 - 5.5 mmol/L LAB CHEMISTRY METHOD 07/28/2024 4:53 PM [facility] Chloride 107 96 - 110 mmol/L LAB CHEMISTRY METHOD 07/28/2024 4:53 PM [facility] CO2 26 21 - 32 mmol/L LAB CHEMISTRY METHOD 07/28/2024 4:53 PM [facility] Anion Gap 4 3 - 11 LAB CHEMISTRY METHOD 07/28/2024 4:53 PM [facility] Glucose 87 70 - 100 mg/dL LAB CHEMISTRY METHOD 07/28/2024 4:53 PM [facility] BUN 7 5 - 25 mg/dL LAB CHEMISTRY METHOD 07/28/2024 4:53 PM [facility] Creatinine 0.55 0.50 - 1.10 mg/dL LAB CHEMISTRY METHOD 07/28/2024 4:53 PM [facility] eGFR 102 >=60 mL/min/1. 73m2 LAB CHEMISTRY METHOD 07/28/2024 4:53 PM [facility] Comment:Calculation based on the??Chronic Kidney Disease Epidemiology Collaboration (CKD-EPI) equation refit??without adjustment for race. BUN/Creatinine Ratio 12.7 LAB CHEMISTRY METHOD 07/28/2024 4:53 PM [facility] Calcium 9.9 8.5 - 10.5 mg/dL LAB CHEMISTRY METHOD 07/28/2024 4:53 PM [facility] AST (SGOT) 18 10 - 42 unit/L LAB CHEMISTRY METHOD 07/28/2024 4:53 PM [facility] ALT (SGPT) 23 10 - 60 unit/L LAB CHEMISTRY METHOD 07/28/2024 4:53 PM [facility] Alkaline Phosphatase 66 42 - 121 unit/L LAB CHEMISTRY METHOD 07/28/2024 4:53 PM [facility] Total Protein 7.7 6.0 - 8.0 g/dL LAB CHEMISTRY METHOD 07/28/2024 4:[address] [facility] Albumin 4.1 3.2 - 5.0 g/dL LAB CHEMISTRY METHOD 07/28/2024 4:[address] [facility] Total Bilirubin 0.5 0.0 - 1.4 mg/dL LAB CHEMISTRY METHOD 07/28/2024 4:[address] [facility] Blood Venous blood specimen / Unknown Venipuncture / Unknown 07/28/2024 3:00 PM EST 07/28/2024 4:15 PM EST Jerad B Kristofer [facility] LAB BLOOD ORDERABLES Final Resu lt [facility] [address] [place] [address], from Last [address] [place] [address] MEDICARE Member Subscriber Plan / Payer (Ef fective 2019-Present) Name:Kareem Traore Relation to Subscriber:Self Name:Kareem Traore Payer ID:[id number] Group ID:[id number] Type:Not on file Address: [facility] [place] [address] Care Teams Chemist Steroids Relationship Specialty Start Date End Date Physician, Pcp Unknown PCP - General 07/28/24
--- OUTSIDE RECORDS SUMMARY | 2024-08-09 08:48 | XMS_ITS | Encounter Summary ---
Author Organization [employer] Address [address] [place] [address] Care Team Providers Care Uptwister Tender Name Role Phone Physician, Pcp Unknown Primary Care Provider Kristina vailable Reason for Visit * Reason Comments Rapid Heart Rate Encounter Details Date Type Department Care Team (Late st Contact Info) Description 07/28/2024 12:08 PM EST - 07/28/2024 10:33 PM EST Emergency [facility] Emergency [address] [place] [address] Discharge Disposition: ED Dismiss - Never Arrived Social History Tobacco Use Types Packs/Day Years Used Date Smoking Tobacco: Never Assessed Comments Unknown Sex and Gender Information Value Date Recorded Sex Assigned at Female 07/28/2024 10:21 PM EST Legal Sex Female 9:48 AM EST Gender Identity Female 07/28/2024 10:21 PM EST Sexual Orientation Choose not to disclose 2024 10:21 PM EST documented as of this encounter Last Filed [...] Mass Index 24.8 07/28/2024 12:54 PM EST documented in this encounter Discharge Disposition Disposition Code Departure Means Destination Comment s ED Dismiss - Never Arrived Pt reported to Samira in registration that she is leaving . Pt did not speak to this nurse documented in this encounter Progress Notes * Pat Nicole RN - 07/28/2024 12:52 PM EST Pt presents to ed for eval of htn at home (163/100), pt states she has no symptoms. Pt states she felt palpitations while lying in bed this am, resolved on its own after approx 2 hours. documented in this encounter Plan of Treatment Not on file documented as of this encounter Procedures Procedure Name Priority Date/Time Associated Diagnosis Comments ECG ANNOTATED 07/30/2024 ECG ANNOTATED 07/29/2024 ECG 12-LEAD STAT 07/28/2024 4:19 PM EST TROPONIN I HIGH SENSITIVITY STAT 07/28/2024 4:16 PM EST XR CHEST 2 VIEWS STAT 07/28/2024 3:14 PM EST TROPONIN I HIGH SENSITIVITY STAT 07/28/2024 3:00 PM EST CBC WITH AUTO DIFFERENTIAL STAT 07/28/2024 3:00 PM EST CBC AND DIFFERENTIAL STAT 07/28/2024 3:00 PM EST B-TYPE NATRIURETIC PEPTIDE STAT 07/28/2024 3:00 PM EST MAGNESIUM STAT 07/28/2024 3:00 PM EST LIPASE STAT 07/28/2024 3:00 PM EST COMPREHENSIVE METABOLIC PANEL STAT 07/28/2024 3:00 PM EST ECG 12-LEAD STAT 07/28/2024 12:17 PM EST documented in this encounter Results * ECG-Annotated (07/30/2024) us Provider Onbase MD ECG ORDERABLES Final Result * ECG-Annotated (07/29/2024) Provider Maria R CASTLE ECG ORDERABLES Final Result * ECG 12 lead (07/28/2024 4:19 PM EST) Ventricular Rate ECG 81 BPM GEMUSE Atrial Rate 81 BPM GEMUSE P-R Interval 218 ms GEMUSE QRS Duration 76 ms GEMUSE Q-T Interval 356 ms GEMUSE QTc 413 ms GEMUSE P Wave [place] 51 degrees GEMUSE R [place] 9 degrees GEMUSE T [place] 29 degrees GEMUSE ECG Interpretation Sinus rhythm with 1st degree A-V block Minimal voltage criteria for LVH, may be normal variant Borderline ECG When compared with ECG of 28-JUL-2024 12:17, No significant change was found Confirmed by AMILCAR AUGUSTINE ([id number]) on 08/01/2024 8:35:47 AM GEMUSE 07/28/2024 4:19 PM EST 08/01/2024 8:35 AM EST Jeradloki Miner MD ECG ORDERABLES Final Result Performing Organization Address City/[facility]/ZIP Co de Phone Number GEMUSE * Troponin I high sensitivity (07/28/2024 4:16 PM EST) Pathologist [facility] High Sensitivity Troponin I 8 <=54 ng/L LAB CHEMISTRY METHOD 07/28/2024 5:06 PM EST [facility] Blood Venous blood specimen / Unknown Venipuncture / Unknown 07/28/2024 4:16 PM EST 07/28/2024 4:28 PM EST Narrative [facility] - 07/28/2024 5:06 PM EST High levels of biotin in samples may falsely decrease hsTroponin values. ??Use caution when interpreting hsTroponin results in patients taking biotin who exhibit renal impairment (eGFR <60) or in patients taking more than 20 mg/day of biotin. Jeradloki Miner MD LAB BLOOD ORDERABLES Final Resu lt [facility] [address] [place] [address], [place] [phone] * XR Chest 2 Views (07/28/2024 3:14 [...] Signed Date: 07/28/2024 15:31 ET Workstation ID: [id number] Transcribed By: Self Edit Transcribed Date: 07/28/2024 [...] Signed Date: 07/28/2024 15:31 ET Workstation ID: [id number] Transcribed By: Self Edit Transcribed Date: 07/28/2024 15:31 ET Jerad Miner MD IMG XR PROCEDURES Final Result * CBC auto differential (07/28/2024 3:00 PM EST) WBC 4.9 4.8 - 10.8 K/[facility] LAB HEMETOLOGY METHOD 07/28/2024 4:28 PM [facility] RBC 4.70 3.80 - 4.80 M/mcL LAB HEMETOLOGY METHOD 07/28/2024 4:28 PM [facility] Hemoglobin 13.4 11.5 - 16.0 g/dL LAB HEMETOLOGY METHOD 07/28/2024 4:28 PM [facility] Hematocrit 41.6 35.0 - 47.0 % LAB HEMETOLOGY METHOD 07/28/2024 4:28 PM [facility] MCV 87.9 79.0 - 98.0 FL LAB HEMETOLOGY METHOD 07/28/2024 4:28 PM [facility] MCH 28.3 27.0 - 32.0 pcg LAB HEMETOLOGY METHOD 07/28/2024 4:28 PM [facility] MCHC 32.2 32.0 - 37.0 g/dL LAB HEMETOLOGY METHOD 07/28/2024 4:28 PM [facility] RDW 13.1 11.0 - 15.0 % LAB HEMETOLOGY METHOD 07/28/2024 4:28 PM [facility] Platelets 297 130 - 400 K/mcL LAB HEMETOLOGY METHOD 07/28/2024 4:28 PM [facility] MPV 10.5 7.0 - 11.0 FL LAB HEMETOLOGY METHOD 07/28/2024 4:28 PM [facility] NRBC 0.0 <1.0 % LAB HEMETOLOGY METHOD 07/28/2024 4:28 PM [facility] NRBC Absolute 0.00 <0.10 K/mcL LAB HEMETOLOGY METHOD 07/28/2024 4:28 PM [facility] Neutrophils Relative 68.4 % LAB HEMETOLOGY METHOD 07/28/2024 4:28 PM [facility] Lymphocytes Relative 23.3 % LAB HEMETOLOGY METHOD 07/28/2024 4:28 PM [facility] Monocytes Relative 7.3 % LAB HEMETOLOGY METHOD 07/28/2024 4:28 PM [facility] Eosinophils Relative 0.4 % LAB HEMETOLOGY METHOD 07/28/2024 4:28 PM [facility] Basophils Relative 0.4 % LAB HEMETOLOGY METHOD 07/28/2024 4:28 PM [facility] Immature Granulocytes Relative 0.2 % LAB HEMETOLOGY METHOD 07/28/2024 4:28 PM [facility] Neutrophils Absolute 3.38 1.50 - 7.00 K/mcL LAB HEMETOLOGY METHOD 07/28/2024 4:28 PM [facility] Lymphocytes Absolute 1.15 1.00 - 5.00 K/mcL LAB HEMETOLOGY METHOD 07/28/2024 4:28 PM [facility] Monocytes Absolute 0.36 0.20 - 1.00 K/mcL LAB HEMETOLOGY METHOD 07/28/2024 4:28 PM [facility] Eosinophils Absolute 0.02 0.00 - 0.50 K/mcL LAB HEMETOLOGY METHOD 07/28/2024 4:28 PM [facility] Basophils Absolute 0.02 0.00 - 0.20 K/mcL LAB HEMETOLOGY METHOD 07/28/2024 4:28 PM [facility] Immature Granulocytes Absolute 0.01 0.00 - 0.03 K/mcL LAB HEMETOLOGY METHOD 07/28/2024 4:28 PM [facility] Blood Venous blood specimen / Unknown Venipuncture / Unknown 07/28/2024 3:00 PM EST 07/28/2024 4:15 PM EST Jerad B Kristofer CASTLE LAB BLOOD ORDERABLES Final Resu lt Performing Organization Address City/[facility] Co de Phone Number [facility] [address] [place] [address], [place] [phone] * B-type natriuretic peptide (07/28/2024 3:00 PM EST) BNP 12 <=100 pcg/mL LAB CHEMISTRY METHOD 07/28/2024 4:58 PM EST [facility] Blood Venous blood specimen / Unknown Venipuncture / Unknown 07/28/2024 3:00 PM EST 07/28/2024 4:15 PM EST us Jerad Miner MD LAB BLOOD ORDERABLES Final Resu lt Performing Organization Address [facility] Co de Phone Number [facility] [address] [place] [address], [place] [phone] * (ABNORMAL) Magnesium (07/28/2024 3:00 PM EST) [facility] Magnesium 2.7(H) 1.9 - 2.6 mg/dL LAB CHEMISTRY METHOD 07/28/2024 4:53 PM EST [facility] Blood Venous blood specimen / Unknown Venipuncture / Unknown 07/28/2024 3:00 PM EST 07/28/2024 4:15 PM EST us Jerad iMner MD LAB BLOOD ORDERABLES Final Resu lt Performing Organization Address [facility]/ZIP Co de Phone Number [facility] [address] [place] [address], [place] [phone] * Lipase (07/28/2024 3:00 PM EST) Pathologist [facility] Lipase 26 13 - 75 unit/L LAB CHEMISTRY METHOD 07/28/2024 4:53 PM EST [facility] Blood Venous blood specimen / Unknown Venipuncture / Unknown 07/28/2024 3:00 PM EST 07/28/2024 4:15 PM EST us Jeradloki Miner MD LAB BLOOD ORDERABLES Final Resu lt [facility] [address] [place] [address], [place] [phone] * Comprehensive metabolic panel (07/28/2024 3:00 PM EST) Sodium 137 133 - 145 mmol/L LAB CHEMISTRY METHOD 07/28/2024 4:53 PM [facility] Potassium 4.1 3.5 - 5.5 mmol/L LAB CHEMISTRY METHOD 07/28/2024 4:53 PM [facility] Chloride 107 96 - 110 mmol/L LAB CHEMISTRY METHOD 07/28/2024 4:53 PM [facility] CO2 26 21 - 32 mmol/L LAB CHEMISTRY METHOD 07/28/2024 4:53 PM [facility] Anion Gap 4 3 - 11 LAB CHEMISTRY METHOD 07/28/2024 4:53 PM [facility] Glucose 87 70 - 100 mg/dL LAB CHEMISTRY METHOD 07/28/2024 4:53 PM [facility] BUN 7 5 - 25 mg/dL LAB CHEMISTRY METHOD 07/28/2024 4:53 PM [facility] Creatinine 0.55 0.50 - 1.10 mg/dL LAB CHEMISTRY METHOD 07/28/2024 4:53 PM [facility] eGFR 102 >=60 mL/min/1. 73m2 LAB CHEMISTRY METHOD 07/28/2024 4:53 PM [facility] Comment:Calculation based on the??Chronic Kidney Disease Epidemiology Collaboration (CKD-EPI) equation refit??without adjustment for race. BUN/Creatinine Ratio 12.7 LAB CHEMISTRY METHOD 07/28/2024 4:53 PM [facility] Calcium 9.9 8.5 - 10.5 mg/dL LAB CHEMISTRY METHOD 07/28/2024 4:53 PM EST [facility] AST (SGOT) 18 10 - 42 unit/L LAB CHEMISTRY METHOD 07/28/2024 4:53 PM [facility] ALT (SGPT) 23 10 - 60 unit/L LAB CHEMISTRY METHOD 07/28/2024 4:53 PM [facility] Alkaline Phosphatase 66 42 - 121 unit/L LAB CHEMISTRY METHOD 07/28/2024 4:53 PM EST [facility] Total Protein 7.7 6.0 - 8.0 g/dL LAB CHEMISTRY METHOD 07/28/2024 4:53 PM [facility] Albumin 4.1 3.2 - 5.0 g/dL LAB CHEMISTRY METHOD 07/28/2024 4:53 PM [facility] Total Bilirubin 0.5 0.0 - 1.4 mg/dL LAB CHEMISTRY METHOD 07/28/2024 4:53 PM EST [facility] Blood Venous blood specimen / Unknown Venipuncture / Unknown 07/28/2024 3:00 PM EST 07/28/2024 4:15 PM EST Jerad Phyllis Miner MD LAB BLOOD ORDERABLES Final Resu lt [facility] [address] [place] [address], * Troponin I high sensitivity (07/28/2024 3:00 PM EST) High Sensitivity Troponin I 6 <=54 ng/L LAB CHEMISTRY METHOD 07/28/2024 4:52 PM EST [facility] Blood Venous blood specimen / Unknown Venipuncture / Unknown 07/28/2024 3:00 PM EST 07/28/2024 4:15 PM EST Narrative [facility] - 07/28/2024 4:52 PM EST High levels of biotin in samples may falsely decrease hsTroponin values. ??Use caution when interpreting hsTroponin results in patients taking biotin who exhibit renal impairment (eGFR <60) or in patients taking more than 20 mg/day of biotin. Jerad Miner MD LAB BLOOD ORDERABLES Final Resu lt Performing Organization Address City/[facility]/ZIP Co de Phone Number [facility] [address] [place] [address], * ECG 12 lead (07/28/2024 12:17 PM EST) Ventricular Rate ECG 93 BPM GEMUSE Atrial Rate 93 BPM GEMUSE P-R Interval 214 ms GEMUSE QRS Duration 84 ms GEMUSE Q-T Interval 342 ms GEMUSE QTc 425 ms GEMUSE P Wave [place] 62 degrees GEMUSE R [place] 36 degrees GEMUSE T [place] 48 degrees GEMUSE ECG Interpretation Sinus rhythm with 1st degree A-V block Minimal voltage criteria for LVH, may be normal variant Nonspecific ST abnormality Abnormal ECG When compared with ECG of 13-JAN-2024 23:56, No significant change was found Confirmed by AMILCAR AUGUSTINE ([id number]) on 07/28/2024 4:07:32 PM GEMUSE 07/28/2024 12:1 7 PM EST 07/28/2024 4:07 PM EST Wenceslao Helm MD ECG ORDERABLES Final Result Performing Organization Address City/[facility]/ZIP Co de Phone Number GEMUSE documented in this encounter Visit Diagnoses Not on filedocumented in this encounter Orders EKG Orders Without Results Count Last Ordered D ate First Ordered Date ECG 12-LEAD 1 07/28/2024 documented in this encounter Care Teams Uptwister Tender Relationship Specialty Start Date End Date Physician, Pcp Unknown PCP - General 07/28/24 documented as of this encounter
--- NOTE | 2024-08-09 08:56 | PC.NURSE ---
a&ox4. vss and up to date aside from being hypertensive. nsr on the counter roller. pt presents to the ED c/o hypertension. monitoring BP at home. pt reports recently being started on valsartan and amlodipine w/ no good effect. pt states since taking BP medication, she has become more hypertensive. PCP advised her to stop taking the medication but did not prescribe her another rx. pt denies any chest pain/sob/dizziness/lightheadedness. per ED MD, IV access not needed at this time. labs/ekg obtained by tech. medication administered per provider order. effectiveness pending. pt on RA w/o difficulty - no sob/wob noted. respirations even/unlabored. plan of care ongoing. call hoffman placed within reach.
[2024-08-09 09:07] LABS: Alanine Aminotransferase 23 U/L (0-31); Albumin Level 4.6 g/dL (3.5-5.0); Alkaline Phosphatase 60 U/L (39-117); Anion Gap 15 (12-20); Aspartate Amino Transferase 23 U/L (5-31); Bilirubin Total 0.6 mg/dL (0.0-1.0); Blood Urea Nitrogen 4 mg/dL (9-16); Calcium 9.9 mg/dL (8.4-10.2); Carbon Dioxide 25 mmol/L (22-29); Chloride 106 mmol/L (96-108); Creatinine Clr Calc Pharmacy 65.7; Estimated Glomerular Filt Rate > 60; Glucose Random 117 mg/dL (60-115); Potassium 3.9 mmol/L (3.3-5.1); Sodium 142 mmol/L (135-145); Total Protein 8.2 g/dL (6.5-8.0)
[2024-08-09 09:13] LABS: Troponin-I High Sensitivity < 2.7 ng/L (<3.5-17.0)
== END 2024-08-09 11:24 | disposition home or self-care (01) ==
PROVIDERS: Emergency Provider Emergency Medicine; PCP Family Medicine
DX: I44.0 Atrioventricular block, first degree (principal); R94.31 Abnormal electrocardiogram [ECG] [EKG]; I10 Essential (primary) hypertension; Z79.899 Other long term (current) drug therapy
CPT/HCPCS: 36415; 80053; 84484; 85025; 93005; 99283; 99285

== ENCOUNTER → 2024-08-09 08:24 | Outpatient (BNV) | payer OTHER, SELFPAY | PROVIDERS: Emergency Provider Emergency Medicine; PCP Family Medicine; Visit Provider Internal Medicine | DX: R94.31 Abnormal electrocardiogram [ECG] [EKG] (principal); I44.0 Atrioventricular block, first degree; I10 Essential (primary) hypertension | CPT/HCPCS: 93010 ==

== ENCOUNTER 2024-08-16 14:36 | Emergency (ER) | payer OTHER, SELFPAY ==
--- NOTE | 2024-08-16 15:42 | ED_ITS ---
HPI - General Adult General Chief complaint: General Medical Stated complaint: not feeling well Related Data Home Medications ?Medication ?Instructions ?Recorded ?Confirmed ascorbic acid (vitamin C) 500 mg mg PO 06/11/23 capsule Previous Rx's ?Medication ?Instructions ?Recorded amlodipine 10 mg tablet (Norvasc) 10 mg PO DAILY #10 tabs 08/09/24 Allergies Allergy/AdvReac Type Severity Reaction Status Date / Time acetaminophen [ACETAMINOPHEN] Allergy Intermediate HTN Verified 08/16/24 15:54 gabapentin [GABAPENTIN] Allergy Intermediate HTN Verified 08/16/24 15:54 pineapple [PINEAPPLE] Allergy Intermediate RASH Verified 08/16/24 15:54 strawberry [STRAWBERRY] Allergy Intermediate RASH Verified 08/16/24 15:54 watermelon [WATERMELON] Allergy Intermediate RASH Verified 08/16/24 15:54 aspirin [ASA] AdvReac Shakiness Verified 08/16/24 15:54 PMFSH Past Medical History Medical History Hx of abnormal cervical Pap smear Hx of hypertensive heart disease Surgical History Hx of varicose vein ligation Hx of inguinal hernia repair Hx of tonsillectomy Hx of parathyroidectomy History of loop electrical excision procedure (LEEP) Family History Family History Sister Breast cancer Paternal Aunt Breast cancer Social History Social History Household Members: Children Housing: House Alcohol intake: former Patient Tobacco Use Status: Never used Tobacco Advance Directives: No Advance Directives Information Provided: No Current occupational status: retired Sexual orientation: Straight/Heterosexual Gender identity: Female Physical Exam ED Vital Signs: Vital Signs - 24 hr 08/16/24 15:48 Temperature 97.3 F Pulse Rate 97 Respiratory Rate 16 Blood Pressure 168/97 H Pulse Oximetry 99 Oxygen Delivery Method Room Air BMI result Body Mass Index 24.0 Course Course Course Narrative: RME performed by Lauren Dunn PA-C. Patient is a 64 year old assigned female at presenting to the emergency department with chest pain and hand numbness. Patient's physical exam performed in triage showed a non-toxic individually speaking clearly. Detailed physical exam and review of systems are deferred to the geodetic surveyor technologist. EKG, labs, imaging, and swabs ordered. Patient placed back in the waiting room pending room availability and results. Lauren Dunn PA-C ---> Patient left the department before myself or any of the other emergency department clinicians could explain to or review with the patient; physical exam findings, test results, need or lack there of for additional testing, need or lack there of for a procedure to be performed, need or lack there of for hospital admission / transfer, need or lack there of for prescription medication, treatment options, or a treatment plan. Medical Decision Making Lab Data 08/16/24 16:12 08/16/24 16:12 Labs: Lab Results 08/16/24 Range/Units 16:12 WBC 5.2 (4.8-10.8) X10*3/uL RBC 4.80 (4.20-5.50) X10*6/uL Hgb 13.7 (12.0-16.0) g/dl Hct 41.4 (37.0-47.0) % MCV 86.3 (80.0-98.0) fL MCH 28.5 (27.0-33.0) pg MCHC 33.1 (31.0-35.0) g/dl RDW 13.1 (11.0-16.0) % Plt Count 227 (160-400) X10*3/uL MPV 10.3 (9.4-12.3) fL Immature Gran % (Auto) 0.2 (0.0-0.4) % Neut % (Auto) 73.9 H (45-73) % Lymph % (Auto) 19.3 L (20-40) % [place] % (Auto) 5.8 (2-11) % Eos % (Auto) 0.4 (0-4) % Baso % (Auto) 0.4 (0-2) % Lymph # (Auto) 1.0 L (1.2-4.9) X10*3/uL [place] # (Auto) 0.3 (0.1-1.2) X10*3/uL Eos # (Auto) 0.0 (0.0-0.4) X10*3/uL Baso # (Auto) 0.0 (0.0-0.2) X10*3/uL Abs Immat Gran (auto) 0.01 (0.00-0.03) X10*3/uL Absolute Neuts (auto) 3.8 (2.0-8.3) x10*3/uL Absolute Nucleated RBC 0.000 (0.0-0.012) X10*3/uL Nucleated RBC % (auto) 0.0 (0.0-0.2) /100WBC Sodium 140 (135-145) mmol/L Potassium 4.1 (3.3-5.1) mmol/L Chloride 105 (96-108) mmol/L Carbon Dioxide 27 (22-29) mmol/L Anion Gap 12 (12-20) BUN 9 (9-16) mg/dL Creatinine 0.64 (0.5-1.4) mg/dL Estim Creat Clear Calc 72.4 Estimated GFR > 60 Random Glucose 107 (60-115) mg/dL Calcium 9.5 (8.4-10.2) mg/dL Magnesium 2.7 H (1.6-2.6) mg/dL Total Bilirubin 0.3 (0.0-1.0) mg/dL AST 30 (5-31) U/L ALT 28 (0-31) U/L Alkaline Phosphatase 69 (39-117) U/L Troponin I High Sens < 2.7 (<3.5-17.0) ng/L Total Protein 8.2 H (6.5-8.0) g/dL Albumin 4.5 (3.5-5.0) g/dL Influenza Type A (PCR) NEGATIVE (Negative) Influenza Type B (PCR) NEGATIVE (Negative) RSV RNA Qual (PCR) NEGATIVE (Negative) SARS-CoV-2 RNA (RT-PCR) NEGATIVE (Negative) Discharge Plan Discharge Clinical Impression: Eloped from emergency department Patient Disposition: Left W/O Completing Treatment Additional Instructions: I never saw this patient Prescriptions: No Action amlodipine [Norvasc] 10 mg tablet 10 mg PO DAILY Qty: 10 0RF ascorbic acid (vitamin C) 500 mg capsule PO Discharge Date/Time: 08/17/24 00:10
[2024-08-16 15:48] VITALS: BP 168/97; PULSE 97; RESP 16; TEMP 36.3; O2SAT 99; BMI 24.0
--- NOTE | 2024-08-16 15:59 | ECG_ITS ---
Test Reason : cp Blood Pressure : */* mmHG Vent. Rate : 96 BPM Atrial Rate : 96 BPM P-R Int : 206 ms QRS Dur : 84 ms QT Int : 342 ms P-R-T Axes : 57 44 55 degrees QTcB Int : 432 ms Normal sinus rhythm Normal ECG When compared with ECG of 09-Aug-2024 08:28, No significant change was found Referred By: Lauren Dunn Electronically Signed By: JULI STORM MD
[2024-08-16 16:25] LABS: MANUAL DIFF FLAG NO
[2024-08-16 16:28] LABS: Basophils Percent Auto 0.4 % (0-2); Eosinophils Percent Auto 0.4 % (0-4); Hematocrit 41.4 % (37.0-47.0); Hemoglobin 13.7 g/dl (12.0-16.0); Imm Gran Abs Auto 0.01 X10*3/uL (0.00-0.03); Imm Gran Pct Auto 0.2 % (0.0-0.4); Lymphocytes Percent Auto 19.3 % (20-40); Mean Corpuscular HGB Conc 33.1 g/dl (31.0-35.0); Mean Corpuscular Hemoglobin 28.5 pg (27.0-33.0); Mean Corpuscular Volume 86.3 fL (80.0-98.0); Mean Platelet Volume 10.3 fL (9.4-12.3); Monocytes Absolute Auto 0.3 X10*3/uL (0.1-1.2); Monocytes Percent Auto 5.8 % (2-11); Neutrophils Absolute Auto 3.8 x10*3/uL (2.0-8.3); Neutrophils Percent Auto 73.9 % (45-73); Platelet Count 227 X10*3/uL (160-400); Red Cell Distribution Width 13.1 % (11.0-16.0); White Blood Count 5.2 X10*3/uL (4.8-10.8)
[2024-08-16 16:48] LABS: Alanine Aminotransferase 28 U/L (0-31); Albumin Level 4.5 g/dL (3.5-5.0); Alkaline Phosphatase 69 U/L (39-117); Anion Gap 12 (12-20); Aspartate Amino Transferase 30 U/L (5-31); Bilirubin Total 0.3 mg/dL (0.0-1.0); Blood Urea Nitrogen 9 mg/dL (9-16); Calcium 9.5 mg/dL (8.4-10.2); Carbon Dioxide 27 mmol/L (22-29); Chloride 105 mmol/L (96-108); Creatinine Clr Calc Pharmacy 72.4; Estimated Glomerular Filt Rate > 60; Glucose Random 107 mg/dL (60-115); Magnesium 2.7 mg/dL (1.6-2.6); Potassium 4.1 mmol/L (3.3-5.1); Sodium 140 mmol/L (135-145); Total Protein 8.2 g/dL (6.5-8.0)
[2024-08-16 16:54] LABS: Troponin-I High Sensitivity < 2.7 ng/L (<3.5-17.0)
[2024-08-16 17:05] LABS: Influenza A PCR NEGATIVE (Negative); Influenza B PCR NEGATIVE (Negative); Resp Syncy Virus RNA Qual PCR NEGATIVE (Negative); SARS COV2 PCR INHOUSE NEGATIVE (Negative)
--- OUTSIDE RECORDS SUMMARY | 2024-08-17 00:09 | XMS_ITS | Encounter Summary ---
Author Organization [employer] Address [address] [place] [address] Care Team Providers Care Tool Repairer Bench Name Role Phone Physician, Pcp Unknown Primary Care Provider Kristina vailable Reason for Visit * Reason Comments Rapid Heart Rate Encounter Details Date Type Department Care Team (Late st Contact Info) Description 07/28/2024 12:08 PM EST - 07/28/2024 10:[address] [facility] [address] [place] [address] Discharge Disposition: ED Dismiss - [...] GEMUSE QTc 413 ms GEMUSE P Wave Underwood 51 degrees GEMUSE R [place] 9 degrees GEMUSE T Underwood 29 degrees GEMUSE ECG Interpretation Sinus rhythm with 1st degree A-V block Minimal voltage criteria for LVH, may be normal variant Borderline ECG When compared with ECG of 28-JUL-2024 12:17, No significant change was found Confirmed by AMILCAR AUGUSTINE ([id number]) on 08/01/2024 8:35:47 AM GEMUSE 07/28/2024 4:19 PM EST 08/01/2024 8:35 AM EST Jeradloki Miner MD ECG ORDERABLES Final Result Performing Organization Address City/[facility]/ZIP Co de Phone Number GEMUSE * Troponin I high sensitivity (07/28/2024 4:16 PM EST) Pathologist [facility] High Sensitivity Troponin I 8 <=54 ng/L LAB CHEMISTRY METHOD 07/28/2024 5:06 PM EST [facility] Blood Venous blood specimen / Unknown Venipuncture / Unknown 07/28/2024 4:16 PM EST 07/28/2024 4:28 PM EST Narrative [facility] - 07/28/2024 5:06 PM EST High levels of biotin in samples may falsely decrease hsTroponin values. ??Use caution when interpreting hsTroponin results in patients taking biotin who exhibit renal impairment (eGFR <60) or in patients taking more than 20 mg/day of biotin. Jeradloki Miner MD LAB BLOOD ORDERABLES Final Resu lt [facility] [address] [place] [address], [place] [phone] * XR Chest 2 Views (07/28/2024 3:14 [...] Signed Date: 07/28/2024 15:31 ET Workstation ID: [id number] Transcribed By: Self Edit Transcribed Date: 07/28/2024 [...] Signed Date: 07/28/2024 15:31 ET Workstation ID: [id number] Transcribed By: Self Edit Transcribed Date: 07/28/2024 15:31 ET Jerad Miner MD IMG XR PROCEDURES Final Result * CBC auto differential (07/28/2024 3:00 PM EST) WBC 4.9 4.8 - 10.8 K/[facility] LAB HEMETOLOGY METHOD 07/28/2024 4:28 PM [facility] RBC 4.70 3.80 - 4.80 M/mcL LAB HEMETOLOGY METHOD 07/28/2024 4:28 PM [facility] Hemoglobin 13.4 11.5 - 16.0 g/dL LAB HEMETOLOGY METHOD 07/28/2024 4:28 PM [facility] Hematocrit 41.6 35.0 - 47.0 % LAB HEMETOLOGY METHOD 07/28/2024 4:28 PM [facility] MCV 87.9 79.0 - 98.0 FL LAB HEMETOLOGY METHOD 07/28/2024 4:28 PM [facility] MCH 28.3 27.0 - 32.0 pcg LAB HEMETOLOGY METHOD 07/28/2024 4:28 PM [facility] MCHC 32.2 32.0 - 37.0 g/dL LAB HEMETOLOGY METHOD 07/28/2024 4:28 PM [facility] RDW 13.1 11.0 - 15.0 % LAB HEMETOLOGY METHOD 07/28/2024 4:28 PM [facility] Platelets 297 130 - 400 K/mcL LAB HEMETOLOGY METHOD 07/28/2024 4:28 PM [facility] MPV 10.5 7.0 - 11.0 FL LAB HEMETOLOGY METHOD 07/28/2024 4:28 PM [facility] NRBC 0.0 <1.0 % LAB HEMETOLOGY METHOD 07/28/2024 4:28 PM [facility] NRBC Absolute 0.00 <0.10 K/mcL LAB HEMETOLOGY METHOD 07/28/2024 4:28 PM [facility] Neutrophils Relative 68.4 % LAB HEMETOLOGY METHOD 07/28/2024 4:28 PM [facility] Lymphocytes Relative 23.3 % LAB HEMETOLOGY METHOD 07/28/2024 4:28 PM [facility] Monocytes Relative 7.3 % LAB HEMETOLOGY METHOD 07/28/2024 4:28 PM [facility] Eosinophils Relative 0.4 % LAB HEMETOLOGY METHOD 07/28/2024 4:28 PM [facility] Basophils Relative 0.4 % LAB HEMETOLOGY METHOD 07/28/2024 4:28 PM [facility] Immature Granulocytes Relative 0.2 % LAB HEMETOLOGY METHOD 07/28/2024 4:28 PM [facility] Neutrophils Absolute 3.38 1.50 - 7.00 K/mcL LAB HEMETOLOGY METHOD 07/28/2024 4:28 PM [facility] Lymphocytes Absolute 1.15 1.00 - 5.00 K/mcL LAB HEMETOLOGY METHOD 07/28/2024 4:28 PM [facility] Monocytes Absolute 0.36 0.20 - 1.00 K/mcL LAB HEMETOLOGY METHOD 07/28/2024 4:28 PM [facility] Eosinophils Absolute 0.02 0.00 - 0.50 K/mcL LAB HEMETOLOGY METHOD 07/28/2024 4:28 PM [facility] Basophils Absolute 0.02 0.00 - 0.20 K/mcL LAB HEMETOLOGY METHOD 07/28/2024 4:28 PM [facility] Immature Granulocytes Absolute 0.01 0.00 - 0.03 K/mcL LAB HEMETOLOGY METHOD 07/28/2024 4:28 PM [facility] Blood Venous blood specimen / Unknown Venipuncture / Unknown 07/28/2024 3:00 PM EST 07/28/2024 4:15 PM EST Jerad B Kristofer CASTLE LAB BLOOD ORDERABLES Final Resu lt Performing Organization Address City/[facility] Co de Phone Number [facility] [address] [place] [address], [place] [phone] * B-type natriuretic peptide (07/28/2024 3:00 PM EST) BNP 12 <=100 pcg/mL LAB CHEMISTRY METHOD 07/28/2024 4:58 PM EST [facility] Blood Venous blood specimen / Unknown Venipuncture / Unknown 07/28/2024 3:00 PM EST 07/28/2024 4:15 PM EST us Jerad Miner MD LAB BLOOD ORDERABLES Final Resu lt Performing Organization Address [facility] Co de Phone Number [facility] [address] [place] [address], [place] [phone] * (ABNORMAL) Magnesium (07/28/2024 3:00 PM EST) [facility] Magnesium 2.7(H) 1.9 - 2.6 mg/dL LAB CHEMISTRY METHOD 07/28/2024 4:53 PM EST [facility] Blood Venous blood specimen / Unknown Venipuncture / Unknown 07/28/2024 3:00 PM EST 07/28/2024 4:15 PM EST us Jerad Miner MD LAB BLOOD ORDERABLES Final Resu lt Performing Organization Address [facility]/ZIP Co de Phone Number [facility] [address] [place] [address], [place] [phone] * Lipase (07/28/2024 3:00 PM EST) Pathologist [facility] Lipase 26 13 - 75 unit/L LAB CHEMISTRY METHOD 07/28/2024 4:53 PM EST [facility] Blood Venous blood specimen / Unknown Venipuncture / Unknown 07/28/2024 3:00 PM EST 07/28/2024 4:15 PM EST us Jeradloki Miner MD LAB BLOOD ORDERABLES Final Resu lt [facility] [address] [place] [address], [place] [phone] * Comprehensive metabolic panel (07/28/2024 3:00 PM EST) Sodium 137 133 - 145 mmol/L LAB CHEMISTRY METHOD 07/28/2024 4:53 PM [facility] Potassium 4.1 3.5 - 5.5 mmol/L LAB CHEMISTRY METHOD 07/28/2024 4:53 PM [facility] Chloride 107 96 - 110 mmol/L LAB CHEMISTRY METHOD 07/28/2024 4:53 PM [facility] CO2 26 21 - 32 mmol/L LAB CHEMISTRY METHOD 07/28/2024 4:53 PM [facility] Anion Gap 4 3 - 11 LAB CHEMISTRY METHOD 07/28/2024 4:53 PM [facility] Glucose 87 70 - 100 mg/dL LAB CHEMISTRY METHOD 07/28/2024 4:53 PM [facility] BUN 7 5 - 25 mg/dL LAB CHEMISTRY METHOD 07/28/2024 4:53 PM [facility] Creatinine 0.55 0.50 - 1.10 mg/dL LAB CHEMISTRY METHOD 07/28/2024 4:53 PM [facility] eGFR 102 >=60 mL/min/1. 73m2 LAB CHEMISTRY METHOD 07/28/2024 4:53 PM [facility] Comment:Calculation based on the??Chronic Kidney Disease Epidemiology Collaboration (CKD-EPI) equation refit??without adjustment for race. BUN/Creatinine Ratio 12.7 LAB CHEMISTRY METHOD 07/28/2024 4:53 PM [facility] Calcium 9.9 8.5 - 10.5 mg/dL LAB CHEMISTRY METHOD 07/28/2024 4:53 PM EST [facility] AST (SGOT) 18 10 - 42 unit/L LAB CHEMISTRY METHOD 07/28/2024 4:53 PM [facility] ALT (SGPT) 23 10 - 60 unit/L LAB CHEMISTRY METHOD 07/28/2024 4:53 PM [facility] Alkaline Phosphatase 66 42 - 121 unit/L LAB CHEMISTRY METHOD 07/28/2024 4:53 PM EST [facility] Total Protein 7.7 6.0 - 8.0 g/dL LAB CHEMISTRY METHOD 07/28/2024 4:53 PM [facility] Albumin 4.1 3.2 - 5.0 g/dL LAB CHEMISTRY METHOD 07/28/2024 4:53 PM [facility] Total Bilirubin 0.5 0.0 - 1.4 mg/dL LAB CHEMISTRY METHOD 07/28/2024 4:53 PM EST [facility] Blood Venous blood specimen / Unknown Venipuncture / Unknown 07/28/2024 3:00 PM EST 07/28/2024 4:15 PM EST Jerad Phyllis Miner MD LAB BLOOD ORDERABLES Final Resu lt [facility] [address] [place] [address], * Troponin I high sensitivity (07/28/2024 3:00 PM EST) High Sensitivity Troponin I 6 <=54 ng/L LAB CHEMISTRY METHOD 07/28/2024 4:52 PM EST [facility] Blood Venous blood specimen / Unknown Venipuncture / Unknown 07/28/2024 3:00 PM EST 07/28/2024 4:15 PM EST Narrative [facility] - 07/28/2024 4:52 PM EST High levels of biotin in samples may falsely decrease hsTroponin values. ??Use caution when interpreting hsTroponin results in patients taking biotin who exhibit renal impairment (eGFR <60) or in patients taking more than 20 mg/day of biotin. Jerad Miner MD LAB BLOOD ORDERABLES Final Resu lt Performing Organization Address City/[facility]/ZIP Co de Phone Number [facility] [address] [place] [address], * ECG 12 lead (07/28/2024 12:17 PM EST) Ventricular Rate ECG 93 BPM GEMUSE Atrial Rate 93 BPM GEMUSE P-R Interval 214 ms GEMUSE QRS Duration 84 ms GEMUSE Q-T Interval 342 ms GEMUSE QTc 425 ms GEMUSE P Wave Underwood 62 degrees GEMUSE R Under[place] 36 degrees GEMUSE T [place] 48 degrees GEMUSE ECG Interpretation Sinus rhythm with 1st degree A-V block Minimal voltage criteria for LVH, may be normal variant Nonspecific ST abnormality Abnormal ECG When compared with ECG of 13-JAN-2024 23:56, No significant change was found Confirmed by AMILCAR AUGUSTINE ([id number]) on 07/28/2024 4:07:32 PM GEMUSE 07/28/2024 12:1 7 PM EST 07/28/2024 4:07 PM EST Wecneslao Helm MD ECG ORDERABLES Final Result Performing Organization Address City/[facility]/ZIP Co de Phone Number GEMUSE documented in this encounter Visit Diagnoses Not on filedocumented in this encounter Orders EKG Orders Without Results Count Last Ordered D ate First Ordered Date ECG 12-LEAD 1 07/28/2024 documented in this encounter Care Teams Tool Repairer Bench Relationship Specialty Start Date End Date Physician, Pcp Unknown PCP - General 07/28/24 documented as of this encounter
--- OUTSIDE RECORDS SUMMARY | 2024-08-17 00:09 | XMS_ITS | Clinical Summary ---
Author Organization [facility] Address [address] [place] [address] Phone Care Team Providers Care Account Retention Representative Name Role Phone Physician, Pcp Unknown Primary Care Provider Kristina vailable Allergies No known active allergies Encounters Date Type Department Care Team Description 07/28/2024 12:08 PM EST - 07/28/2024 10:33 PM EST Emergency [facility] Emergency [address] [place] [address] Discharge Disposition: ED Dismiss - [...] GEMUSE QTc 413 ms GEMUSE P Wave [place] 51 degrees GEMUSE R [place] 9 degrees GEMUSE T [place] 29 degrees GEMUSE ECG Interpretation Sinus rhythm with 1st degree A-V block Minimal voltage criteria for LVH, may be normal variant Borderline ECG When compared with ECG of 28-JUL-2024 12:17, No significant change was found Confirmed by AMILCAR AUGUSTINE ([id number]) on 08/01/2024 8:35:47 AM GEMUSE 07/28/2024 4:19 PM EST 08/01/2024 8:35 AM EST Jeradloki Miner MD ECG ORDERABLES Final Result Performing Organization Address City/[facility] de Phone Number GEMUSE * Troponin I high sensitivity (07/28/2024 4:16 PM EST) Only the most recent of2 resultswithin the time period is included. High Sensitivity Troponin I 8 <=54 ng/L LAB CHEMISTRY METHOD 07/28/2024 5:06 PM EST [facility] Blood Venous blood specimen / Unknown Venipuncture / Unknown 07/28/2024 4:16 PM EST 07/28/2024 4:28 PM EST Narrative [facility] - 07/28/2024 5:06 PM EST High levels of biotin in samples may falsely decrease hsTroponin values. ??Use caution when interpreting hsTroponin results in patients taking biotin who exhibit renal impairment (eGFR <60) or in patients taking more than 20 mg/day of biotin. Jerad Miner MD LAB BLOOD ORDERABLES Final Resu lt Performing Organization Address [facility] de Phone Number [facility] [address] [place] [address], [place] [phone] * XR Chest 2 Views (07/28/2024 3:14 [...] Signed Date: 07/28/2024 15:31 ET Workstation ID: [id number] Transcribed By: Self Edit Transcribed Date: 07/28/2024 [...] Signed Date: 07/28/2024 15:31 ET Workstation ID: [id number] Transcribed By: Self Edit Transcribed Date: 07/28/2024 15:31 ET Jerad Miner MD IMG XR PROCEDURES Final Result * CBC auto differential (07/28/2024 3:00 PM EST) WBC 4.9 4.8 - 10.8 K/mcL LAB HEMETOLOGY METHOD 07/28/2024 4:28 PM EST [facility] RBC 4.70 3.80 - 4.80 M/mcL LAB HEMETOLOGY METHOD 07/28/2024 4:28 PM EST [facility] Hemoglobin 13.4 11.5 - 16.0 g/dL LAB HEMETOLOGY METHOD 07/28/2024 4:28 PM EST [facility] Hematocrit 41.6 35.0 - 47.0 % LAB HEMETOLOGY METHOD 07/28/2024 4:28 PM [facility] MCV 87.9 79.0 - 98.0 FL LAB HEMETOLOGY METHOD 07/28/2024 4:28 PM [facility] MCH 28.3 27.0 - 32.0 pcg LAB HEMETOLOGY METHOD 07/28/2024 4:28 PM [facility] MCHC 32.2 32.0 - 37.0 g/dL LAB HEMETOLOGY METHOD 07/28/2024 4:28 PM [facility] RDW 13.1 11.0 - 15.0 % LAB HEMETOLOGY METHOD 07/28/2024 4:28 PM [facility] Platelets 297 130 - 400 K/mcL LAB HEMETOLOGY METHOD 07/28/2024 4:28 PM [facility] MPV 10.5 7.0 - 11.0 FL LAB HEMETOLOGY METHOD 07/28/2024 4:28 PM [facility] NRBC 0.0 <1.0 % LAB HEMETOLOGY METHOD 07/28/2024 4:28 PM [facility] NRBC Absolute 0.00 <0.10 K/mcL LAB HEMETOLOGY METHOD 07/28/2024 4:28 PM [facility] Neutrophils Relative 68.4 % LAB HEMETOLOGY METHOD 07/28/2024 4:28 PM [facility] Lymphocytes Relative 23.3 % LAB HEMETOLOGY METHOD 07/28/2024 4:28 PM [facility] Monocytes Relative 7.3 % LAB HEMETOLOGY METHOD 07/28/2024 4:28 PM [facility] Eosinophils Relative 0.4 % LAB HEMETOLOGY METHOD 07/28/2024 4:28 PM [facility] Basophils Relative 0.4 % LAB HEMETOLOGY METHOD 07/28/2024 4:28 PM EST [facility] Immature Granulocytes Relative 0.2 % LAB HEMETOLOGY METHOD 07/28/2024 4:28 PM EST [facility] Neutrophils Absolute 3.38 1.50 - 7.00 K/[facility] LAB HEMETOLOGY METHOD 07/28/2024 4:28 PM [facility] Lymphocytes Absolute 1.15 1.00 - 5.00 K/mcL LAB HEMETOLOGY METHOD 07/28/2024 4:28 PM [facility] Monocytes Absolute 0.36 0.20 - 1.00 K/mcL LAB HEMETOLOGY METHOD 07/28/2024 4:28 PM [facility] Eosinophils Absolute 0.02 0.00 - 0.50 K/[facility] LAB HEMETOLOGY METHOD 07/28/2024 4:28 PM [facility] Basophils Absolute 0.02 0.00 - 0.20 K/mcL LAB HEMETOLOGY METHOD 07/28/2024 4:28 PM [facility] Immature Granulocytes Absolute 0.01 0.00 - 0.03 K/mcL LAB HEMETOLOGY METHOD 07/28/2024 4:28 PM [facility] Blood Venous blood specimen / Unknown Venipuncture / Unknown 07/28/2024 3:00 PM EST 07/28/2024 4:15 PM EST us Jerad Phyllis Miner MD LAB BLOOD ORDERABLES Final Resu lt [facility]) [facility] [address] [place] [address], * B-type natriuretic peptide (07/28/2024 3:00 PM EST) BNP 12 <=100 pcg/mL LAB CHEMISTRY METHOD 07/28/2024 4:58 PM EST [facility] Blood Venous blood specimen / Unknown Venipuncture / Unknown 07/28/2024 3:00 PM EST 07/28/2024 4:15 PM EST us Jerad Miner MD LAB BLOOD ORDERABLES Final Resu lt Performing Organization Address [facility] de Phone Number [facility] [address] [place] [address], [place] [phone] * (ABNORMAL) Magnesium (07/28/2024 3:00 PM EST) Pathologist [facility] Magnesium 2.7(H) 1.9 - 2.6 mg/dL LAB CHEMISTRY METHOD 07/28/2024 4:53 PM EST [facility] Blood Venous blood specimen / Unknown Venipuncture / Unknown 07/28/2024 3:00 PM EST 07/28/2024 4:15 PM EST us Jerad Miner MD LAB BLOOD ORDERABLES Final Resu lt Performing Organization Address [facility] de Phone Number [facility] [address] [place] [address], [place] [phone] * Lipase (07/28/2024 3:00 PM EST) [facility] Lipase 26 13 - 75 unit/L LAB CHEMISTRY METHOD 07/28/2024 4:53 PM EST [facility] Blood Venous blood specimen / Unknown Venipuncture / Unknown 07/28/2024 3:00 PM EST 07/28/2024 4:15 PM EST us Jerad Miner MD LAB BLOOD ORDERABLES Final Resu lt Performing Organization Address [facility] de Phone Number [facility] [address] [place] [address], [place] [phone] * Comprehensive metabolic panel (07/28/2024 3:00 PM EST) [facility] Sodium 137 133 - 145 mmol/L LAB CHEMISTRY METHOD 07/28/2024 4:53 PM [facility] Potassium 4.1 3.5 - 5.5 mmol/L LAB CHEMISTRY METHOD 07/28/2024 4:53 PM [facility] Chloride 107 96 - 110 mmol/L LAB CHEMISTRY METHOD 07/28/2024 4:53 PM [facility] CO2 26 21 - 32 mmol/L LAB CHEMISTRY METHOD 07/28/2024 4:53 PM [facility] Anion Gap 4 3 - 11 LAB CHEMISTRY METHOD 07/28/2024 4:53 PM [facility] Glucose 87 70 - 100 mg/dL LAB CHEMISTRY METHOD 07/28/2024 4:53 PM [facility] BUN 7 5 - 25 mg/dL LAB CHEMISTRY METHOD 07/28/2024 4:53 PM [facility] Creatinine 0.55 0.50 - 1.10 mg/dL LAB CHEMISTRY METHOD 07/28/2024 4:53 PM [facility] eGFR 102 >=60 mL/min/1. 73m2 LAB CHEMISTRY METHOD 07/28/2024 4:53 PM [facility] Comment:Calculation based on the??Chronic Kidney Disease Epidemiology Collaboration (CKD-EPI) equation refit??without adjustment for race. BUN/Creatinine Ratio 12.7 LAB CHEMISTRY METHOD 07/28/2024 4:53 PM [facility] Calcium 9.9 8.5 - 10.5 mg/dL LAB CHEMISTRY METHOD 07/28/2024 4:53 PM [facility] AST (SGOT) 18 10 - 42 unit/L LAB CHEMISTRY METHOD 07/28/2024 4:53 PM [facility] ALT (SGPT) 23 10 - 60 unit/L LAB CHEMISTRY METHOD 07/28/2024 4:53 PM [facility] Alkaline Phosphatase 66 42 - 121 unit/L LAB CHEMISTRY METHOD 07/28/2024 4:53 PM [facility] Total Protein 7.7 6.0 - 8.0 g/dL LAB CHEMISTRY METHOD 07/28/2024 4:53 PM EST [facility] Albumin 4.1 3.2 - 5.0 g/dL LAB CHEMISTRY METHOD 07/28/2024 4:53 PM EST [facility] Total Bilirubin 0.5 0.0 - 1.4 mg/dL LAB CHEMISTRY METHOD 07/28/2024 4:53 PM EST [facility] Blood Venous blood specimen / Unknown Venipuncture / Unknown 07/28/2024 3:00 PM EST 07/28/2024 4:15 PM EST Jerad B Kristofer CASTLE LAB BLOOD ORDERABLES Final Resu lt [facility] [address] [place] [address], from Last [address] [place] [address] [place] [address] MEDICARE Member Subscriber Plan / Payer (Ef fective 2019-Present) Name:Kareem Traore Relation to Subscriber:Self Name:Kareem Traore Payer ID:[id number] Group ID:[id number] Type:Not on file Address: [facility] [place] [phone] Care Teams Account Retention Representative Relationship Specialty Start Date End Date Physician, Pcp Unknown PCP - General 07/28/24
--- OUTSIDE RECORDS SUMMARY | 2024-08-17 00:09 | XMS_ITS | Clinical Summary ---
Author Organization [facility], Address [address] [place] [address] [place] [address] Phone Care Team Providers Care Technical Analyst Name Role Phone Ashanti Davila MD Primary [...] to complete this topic Insurance [place] [id number] Care Teams Technical Analyst Relationship Specialty Start Date End Date Giovanni, Ashanti Orta MD PCP - General Family Medicine 06/01/19
--- OUTSIDE RECORDS SUMMARY | 2024-08-17 00:09 | XMS_ITS | Encounter Summary ---
Author Organization [employer] Address [address] [facility] [address] [place] [address] Care Team Providers Care Dial Refinisher Name Role Phone Ashanti Davila MD Primary Care Provider +1- [phone] Fartun Guidry PharmD Unavailable +1- [phone] Ele Meza Unavailable Reason for Visit * Reason Onset Date Comments FYI 07/23/2024 Encounter Details Date Type Department Care Team (Late st Contact Info) Description 07/23/2024 Telephone [facility] [address] [place], [place] [phone] Ashanti Davila MD [address] [place], [place] [phone] FYI Social History Tobacco Use Types Packs/Day [...] EST TC placed to pt with S park keeper Jorden #[id number] to inform and advise of the cardiology [...] EST Tc from pt returning phone call. [phone] surinamese * Telephone Encounter - Karolyn Adler RN - 07/27/2024 9:45 AM EST TC placed to pt and LVM to call back the office in regards to referral being placed to cardiology * Telephone Encounter - Karolyn Adler RN - 07/26/2024 9:20 AM EST TC placed to pt with [facility] park keeper Dimitri #[id number] to inform and advise of PCP Dr. [...] EST TC placed to pt with S park keeper Moustapha #[id number] to inquire on concerns with Amlodipine and [...] did have a high BP reading at [facility] on 07/08/2024 of 164/108. Per provider notes [...] medications and feels better. No symptomstoday 07/23. [phone] (surinamese) documented in this encounter Plan of Treatment Upcoming Encounters Date Type Department Care Team (Late st Contact Info) Description 08/25/2024 11:00 AM EDT Office Visit [facility] [address] [place] [address] Ashanti Davila MD [address] [place] [address] [phone] documented as of this encounter Visit Diagnoses Not on filedocumented in this encounter Additional Health Concerns Assessment Noted Time PHQ-9 Depression Total Score: 0 07/08/19 10:38 AM EST documented as of this encounter Care Teams Dial Refinisher Relationship Specialty Start Date End Date Ashanti Davila MD [address] [place] [id number] PCP - General Family Medicine 06/16/18 Fartun Guidry, MahamedD [address] [place] [phone] Pharmacist Internal Medicine 02/05/24 Ele Meza [address] [place] [id number] Gynecology 07/08/24 documented as of this encounter
--- OUTSIDE RECORDS SUMMARY | 2024-08-17 00:09 | XMS_ITS | Encounter Summary ---
Author Organization [employer] Address [address] [facility] [address]t [place] [address] Care Team Providers Care Fruit Room Hand Name Role Phone Ashanti Davila MD Primary Care Provider +1- [phone] Fartun Guidry PharmD Unavailable [phone]- [phone] Ele Meza Unavailable Encounter Details Date Type Department Care Team (Late st Contact Info) Description 08/16/2024 Orders Only GENERIC EXTERNAL DATA DEPARTMENT Provider, Generic External Data Social History Tobacco Use Types Packs/Day Years [...] as of this encounter Plan of Treatment Upcoming Encounters Date Type Department Care Team (Late st Contact Info) Description 08/25/2024 11:00 AM EDT Office Visit [facility] [address] [place] [address] [phone] Ashanti Davila MD [address] [place], [place] [phone] documented as of this encounter Procedures Procedure Name Priority Date/Time Associated Diagnosis Comments HIGH SENSITIVITY TROPONIN I Routine 08/16/2024 4:12 PM EST SARS COV2/INFLUENZA A/B AND RSV RNA QL NAAT Routine 08/16/2024 4:12 PM EST CBC WITH AUTO DIFFERENTIAL Routine 08/16/2024 4:12 PM EST MAGNESIUM Routine 08/16/2024 4:12 PM EST COMPREHENSIVE METABOLIC PANEL Routine 08/16/2024 4:12 PM EST documented in this encounter Results * SARS-CoV-2 RNA, Influenza A/B, and RSV RNA, Ql NAAT (08/16/2024 4:12 PM EST) Influenza A PCR NEGATIVE Negative [facility] Influenza B PCR NEGATIVE Negative [facility] Resp Syncy Virus RNA Qual PCR NEGATIVE Negative [facility] SARS COV2 PCR NEGATIVE Negative [facility] Comment:All test results mus t be correlated with clinical findings.Negative results do not preclude SARS-CoV2, influenza Avirus, influenza B virus and/or RSV infectionand should not be used as the sole basis for treatment orother patient management decisions. Negative results must becombined with clinical observations, patient history, andepidemiological information.This test has not been evaluated for monitoring treatment ofinfection.This test has been authorized by the FDA under an EmergencyUse Authorization (EUA) for use by authorized laboratories.Testing performed on the [employer] GeneXpert utilizingreal-time RT-PCR.All SARS CoV2 and positive influenza A/B results arereported to [facility]. 08/16/2024 4:12 PM EST 08/16/2024 4:23 PM EST Generic External Data Provider LAB MICROBIOLOGY - GENERAL ORDERABLES Final Result Performing Organization Address [facility]/ZIP Co de Phone Number [facility] [address] [place] [phone] * High Sensitivity Troponin I (08/16/2024 4:12 PM EST) TROPONIN I HIGH SENSITIVITY <2.7 <3.5 - 17.0 ng/L [facility] Comment:The Montiel high sens itivity Troponin-I results should beused in conjunction with other diagnostic information suchas ECG, clinical observations and information, and patientsymptoms to aid in the diagnosis of [place]. 08/16/2024 4:12 PM EST 08/16/2024 4:23 PM EST Generic External Data Provider LAB BLOOD ORDERAB LES Final Result Performing Organization Address [facility]/ZIP Co de Phone Number [facility] [address] [place] [phone] * (ABNORMAL) Magnesium (08/16/2024 4:12 PM EST) Magnesium 2.7(H) 1.6 - 2.6 mg/dL [facility] 08/16/2024 4:12 PM EST 08/16/2024 4:23 PM EST us Generic External Data Provider LAB BLOOD ORDERAB LES Final Result [facility] [address] [place] [phone] * (ABNORMAL) Comprehensive Metabolic Panel (08/16/2024 4:12 PM EST) Sodium 140 135 - 145 mmol/L [facility] Potassium 4.1 3.3 - 5.1 mmol/L [facility] Comment:Slight Hemolysis.Int erpret result with caution. Chloride 105 96 - 108 mmol/L [facility] Carbon Dioxide 27 22 - 29 mmol/L [facility] Anion Gap 12 12 - 20 [facility] Urea Nitrogen (BUN) 9 9 - 16 mg/dL [facility] Creatinine, Serum 0.64 0.5 - 1.4 mg/dL [facility] Creatinine Clr Calc Pharmacy 72.4 [facility] Comment:Provided height and weight: 160.02 cm,61.5 kg.eGFR (calculated from the MDRD study equation) and eCrCl(calculated from the Cockcroft-Gault equation) are based ondifferent parameters and may not yield comparable results.If eCrCl result is absurd, please check patient'sheight/weight. Estimated Glomerular Filt Rate >60 [facility] Comment:Chronic Kidney Disea se: Estimated GFR < 60 mL/min/1.59m8Azzxgy Kidney Disease: Estimated GFR < 15 mL/min/1.73m2 Glucose 107 60 - 115 mg/dL [facility] Calcium 9.5 8.4 - 10.2 mg/dL [facility] Bilirubin, Total 0.3 0.0 - 1.0 mg/dL [facility] Comment:Slight Icterus. Aspartate Amino Transferase 30 5 - 31 U/L [facility] Comment:Slight Hemolysis.Int erpret result with caution. Alanine Aminotransferase 28 0 - 31 U/L [facility] Total Protein 8.2(H) 6.5 - 8.0 g/dL [facility] Albumin Level 4.5 3.5 - 5.0 g/dL [facility] Alkaline Phosphatase 69 39 - 117 U/L [facility] 08/16/2024 4:12 PM EST 08/16/2024 4:23 PM EST us Generic External Data Provider LAB BLOOD ORDERAB LES Final Result [facility] [address] [place] [phone] [phone] * (ABNORMAL) CBC auto differential (08/16/2024 4:12 PM EST) White Blood Count 5.2 4.8 - 10.8 X10*3/uL [facility] Red Blood Count 4.80 4.20 - 5.50 X10*6/uL [facility] Hemoglobin 13.7 12.0 - 16.0 g/dl [facility] Hematocrit 41.4 37.0 - 47.0 % [facility] Mean Corpuscular Volume 86.3 80.0 - 98.0 fL [facility] Mean Corpuscular Hemoglobin 28.5 27.0 - 33.0 pg [facility] Mean Corpuscular HGB Conc 33.1 31.0 - 35.0 g/dl [facility] Red Cell Distribution Width 13.1 11.0 - 16.0 % [facility] Platelet Count 227 160 - 400 X10*3/uL [facility] Mean Platelet Volume 10.3 9.4 - 12.3 fL [facility] Neutrophils Percent Auto 73.9(H) 45 - 73 % [facility] Imm Gran Pct Auto 0.2 0.0 - 0.4 % [facility] Lymphocytes Percent Auto 19.3(L) 20 - 40 % [facility] Monocytes Percent Auto 5.8 2 - 11 % [facility] Eosinophils Percent Auto 0.4 0 - 4 % [facility] Basophils Percent Auto 0.4 0 - 2 % [facility] NRBC Pct Auto 0.0 0.0 - 0.2 /100WBC [facility] Neutrophils Absolute Auto 3.8 2.0 - 8.3 x10*3/uL [facility] Imm Gran Abs Auto 0.01 0.00 - 0.03 X10*3/uL [facility] Lymphocytes Absolute Auto 1.0(L) 1.2 - 4.9 X10*3/uL [facility] Monocytes Absolute Auto 0.3 0.1 - 1.2 X10*3/uL [facility] Eosinophils Absolute Auto 0.0 0.0 - 0.4 X10*3/uL [facility] Basophils Absolute Auto 0.0 0.0 - 0.2 X10*3/uL [facility] NRBC Abs Auto 0.000 0.0 - 0.012 X10*3/uL [facility] 08/16/2024 4:12 PM EST 08/16/2024 4:23 PM EST us Generic External Data Provider LAB BLOOD ORDERAB LES Final Result [facility] [address] [place] [phone] documented in this encounter Visit Diagnoses Not on filedocumented in this encounter Additional Health Concerns Assessment Noted Time PHQ-9 Depression Total Score: 0 07/08/19 25 10:38 AM EST documented as of this encounter Care Teams Fruit Room Hand Relationship Specialty Start Date End Date Ashanti Davila MD [address] [place] [address] PCP - General Family Medicine 06/16/18 Fartun Guidry, MahamedD [address] [place] [phone] Pharmacist Internal Medicine 02/05/24 Ele Meza [address] [place] [phone] Gynecology 07/08/24 documented as of this encounter
--- OUTSIDE RECORDS SUMMARY | 2024-08-17 00:09 | XMS_ITS | Encounter Summary ---
Author Organization [employer] Address [address] [facility] [address]t [place] [address] Care Team Providers Care Scale Shooter Name Role Phone Ashanti Davila MD Primary Care Provider +1- [phone] Fartun Guidry PharmD Unavailable +1- [phone] Ele Meza Unavailable Encounter Details Date Type Department Care Team (Late st Contact Info) Description 08/09/2024 Orders Only GENERIC EXTERNAL DATA [...] Description 08/25/2024 11:00 AM EDT Office Visit [facility] [address] [place], [place] [phone] Ashanti Davila MD [address] [place], [place] [phone] documented as of this encounter Procedures Procedure Name Priority Date/Time Associated Diagnosis Comments HIGH SENSITIVITY TROPONIN I Routine 08/09/2024 8:38 AM EST CBC WITH AUTO DIFFERENTIAL Routine 08/09/2024 8:38 AM EST COMPREHENSIVE METABOLIC PANEL Routine 08/09/2024 12:06 AM EST documented in this encounter Results * High Sensitivity Troponin I (08/09/2024 8:38 AM EST) TROPONIN I HIGH SENSITIVITY <2.7 <3.5 - 17.0 ng/L [facility] Comment:The Montiel high sens itivity Troponin-I results should beused in conjunction with other diagnostic information suchas ECG, clinical observations and information, and patientsymptoms to aid in the diagnosis of [place]. 08/09/2024 8:38 AM EST 08/09/2024 8:42 AM EST us Generic External Data Provider LAB BLOOD ORDERAB LES Final Result [facility] [address] [place] [phone] [phone] * (ABNORMAL) CBC auto differential (08/09/2024 8:38 AM EST) White Blood Count 3.1(L) 4.8 - 10.8 X10*3/uL [facility] Red Blood Count 4.97 4.20 - 5.50 X10*6/uL [facility] Hemoglobin 14.1 12.0 - 16.0 g/dl [facility] Hematocrit 41.6 37.0 - 47.0 % [facility] Mean Corpuscular Volume 83.7 80.0 - 98.0 fL [facility] Mean Corpuscular Hemoglobin 28.4 27.0 - 33.0 pg [facility] Mean Corpuscular HGB Conc 33.9 31.0 - 35.0 g/dl [facility] Red Cell Distribution Width 13.2 11.0 - 16.0 % [facility] Platelet Count 238 160 - 400 X10*3/uL [facility] Mean Platelet Volume 9.7 9.4 - 12.3 fL [facility] Neutrophils Percent Auto 52.1 45 - 73 % [facility] Imm Gran Pct Auto 0.3 0.0 - 0.4 % [facility] Lymphocytes Percent Auto 34.4 20 - 40 % [facility] Monocytes Percent Auto 10.3 2 - 11 % [facility] Eosinophils Percent Auto 1.9 0 - 4 % [facility] Basophils Percent Auto 1.0 0 - 2 % [facility] NRBC Pct Auto 0.0 0.0 - 0.2 /100WBC [facility] Neutrophils Absolute Auto 1.6(L) 2.0 - 8.3 x10*3/uL [facility] Imm Gran Abs Auto 0.01 0.00 - 0.03 X10*3/uL [facility] Lymphocytes Absolute Auto 1.1(L) 1.2 - 4.9 X10*3/uL [facility] Monocytes Absolute Auto 0.3 0.1 - 1.2 X10*3/uL [facility] Eosinophils Absolute Auto 0.1 0.0 - 0.4 X10*3/uL [facility] Basophils Absolute Auto 0.0 0.0 - 0.2 X10*3/uL [facility] NRBC Abs Auto 0.000 0.0 - 0.012 X10*3/uL [facility] 08/09/2024 8:38 AM EST 08/09/2024 8:42 AM EST us Generic External Data Provider LAB BLOOD ORDERAB LES Final Result [facility] [address] [place] [phone] * (ABNORMAL) Comprehensive Metabolic Panel (08/09/2024 12:06 AM EST) Sodium 142 135 - 145 mmol/L [facility] Potassium 3.9 3.3 - 5.1 mmol/L [facility] Chloride 106 96 - 108 mmol/L [facility] Carbon Dioxide 25 22 - 29 mmol/L [facility] Anion Gap 15 12 - 20 [facility] Urea Nitrogen (BUN) 4(L) 9 - 16 mg/dL [facility] Creatinine, Serum 0.73 0.5 - 1.4 mg/dL [facility] Creatinine Clr Calc Pharmacy 65.7 [facility] Comment:Provided height and weight: 154.94 cm,63.9 kg.eGFR (calculated from the MDRD study equation) and eCrCl(calculated from the Cockcroft-Gault equation) are based ondifferent parameters and may not yield comparable results.If eCrCl result is absurd, please check patient'sheight/weight. Estimated Glomerular Filt Rate >60 [facility] Comment:Chronic Kidney Disea se: Estimated GFR < 60 mL/min/1.84m0Apfujq Kidney Disease: Estimated GFR < 15 mL/min/1.73m2 Glucose 117(H) 60 - 115 mg/dL [facility] Calcium 9.9 8.4 - 10.2 mg/dL [facility] Bilirubin, Total 0.6 0.0 - 1.0 mg/dL [facility] Comment:Slight Icterus. Aspartate Amino Transferase 23 5 - 31 U/L [facility] Alanine Aminotransferase 23 0 - 31 U/L [facility] Total Protein 8.2(H) 6.5 - 8.0 g/dL [facility] Albumin Level 4.6 3.5 - 5.0 g/dL [facility] Alkaline Phosphatase 60 39 - 117 U/L [facility] 08/09/2024 12:0 6 AM EST 08/09/2024 8:42 AM EST us Generic External Data Provider LAB BLOOD ORDERAB LES Final Result Performing Organization Address City/State/[facility] Co de Phone Number [facility] [address] [place] [phone] documented in this encounter Visit Diagnoses Not on filedocumented in this encounter Additional Health Concerns Assessment Noted Time PHQ-9 Depression Total Score: 0 07/08/19 10:38 AM EST documented as of this encounter Care Teams Scale Shooter Relationship Specialty Start Date End Date Ashanti Davila MD [address] [place] [address] PCP - General Family Medicine 06/16/18 Fartun Guidry, MahamedD [address] [place] [address] Pharmacist Internal Medicine 02/05/24 Ele Meza [address] [place] [phone] Gynecology 07/08/24 documented as of this encounter
--- OUTSIDE RECORDS SUMMARY | 2024-08-17 00:09 | XMS_ITS | Encounter Summary ---
Author Organization [employer] Address [address] [facility] [address] [place] [address] Care Team Providers Care Back Closer Name Role Phone Ashanti Davila MD Primary Care Provider +1- [phone] Fartun Guidry PharmD Unavailable Ele Meza Unavailable Encounter Details Date Type Department Care Team (Late st Contact Info) Description 08/10/2024 Orders Only [facility] [address] [place], [place] [phone] Ashanti Davila MD [address] [place] [address] Primary hypertension (Primary Dx) Social History Tobacco Use Types Packs/Day Years [...] Description 08/25/2024 11:00 AM EDT Office Visit [facility] [address] [place] [phone] Ashanti Davila MD [address] [place] [phone] documented as of this encounter Visit Diagnoses Diagnosis Primary hypertension- Primary Unspecified essential hypertension documented in this encounter Additional Health Concerns Assessment Noted Time PHQ-9 Depression Total Score: 0 07/08/19 25 10:38 AM EST documented as of this encounter Care Teams Back Closer Relationship Specialty Start Date End Date Ashanti Davila MD [address] [place] [phone] PCP - General Family Medicine 06/16/18 Fartun Guidry, Bebeto [address] [place] [phone] Pharmacist Internal Medicine 02/05/24 Ele Meza [address] [place] [phone] Gynecology 07/08/24 documented as of this encounter
--- OUTSIDE RECORDS SUMMARY | 2024-08-17 00:09 | XMS_ITS | Encounter Summary ---
Author Organization [employer] Address [address] [facility] [address] [place] [address] Care Team Providers Care Commercial Leasing Agent Name Role Phone Ashanti Montenegro MD Primary Care Provider [phone]- [phone] Fartun Guidry PharmD Unavailable [phone] Ele Meza Unavailable Reason for Referral * Consultation (Routine) - Authorized Specialty Diagnoses / Procedures Referred By Contac t Referred To Contact Cardiology Diagnoses Primary hypertension Ashanti Montenegro MD [address] [place] [phone] Phone: tel: fax: Marshall De La Paz MD [phone] [place] [address] Phone: tel: fax: Referral ID Status Reason Start Date Expiration Date Visits Requested Visits Authorized [id number] Authorized Specialty Services Required 07/27/2024 07/27/2025 1 1 Reason for Visit * Reason Comments Annual Exam Encounter Details Date Type Department Care Team (Late st Contact Info) Description 07/08/2024 10:45 AM EST Office Visit [facility] MEDICINE [address] [place] [address] [phone] Ashanti Montenegro MD [address] [place] [address] [phone] Other specified health status (Primary Dx); Primary [...] she is allergic to hair dye-kim beauchemin, admissions dean Past Medical History: Diagnosis Date 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 S/p excision 01/2006 and 5 years of Tamoxifen. Followed by [facility]. Last visit 03/2014 -Last [...] -Patient has self-discontinued statin medication mult Hyperparathyroidism ([facility]) 06/30/2013 Hx primary hyperparathyroidism. S/p parathyroidectomy with intraoperative PTH monitoring 11/15/2013. Dx was parathyroid adenoma. -recommend biannual routine serum calcium measurements -encourage continue calcium and Vid D supplements Lab Results Component Value Date PARATHYROID 54.8 02/05/2024 PARATHYROID 93.3 (H) 06/04/2023 [id number] Hypertension 01/13/2012 -uncontrolled HTN for years and [...] Metabolic Panel (Completed) Referral to Cardiology Hyperparathyroidism ([facility]) Hx primary hyperparathyroidism. S/p parathyroidectomy with intraoperative PTH monitoring 11/15/2013. Dx was parathyroid adenoma. -recommend biannual routine serum calcium measurements -encourage continue calcium and Vid D supplements Lab Results Component Value Date PARATHYROID 54.8 02/05/2024 PARATHYROID 93.3 (H) 06/04/2023 [id number] 39.6 02/05/2024 CREATININE 0.68 02/05/2024 CA 10.0 [...] a healthy lifestyle, being active in her lutheran and prayer, relaxation techniques, and patient agreed to seeing [facility] with our PharmD, SHE as well as cardiology. Pt saw [facility] once and the declined follow-up. 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 Pt saw [facility] once and the declined follow-up. * Assessment & Plan Note - Samantha Rodríguez - 07/08/2024 10:46 AM ESTAssociated Problem(s): Hyperparathyroidism ([facility]) Hx primary hyperparathyroidism. S/p parathyroidectomy with intraoperative PTH monitoring 11/15/2013. Dx was parathyroid adenoma. -recommend biannual routine serum calcium measurements -encourage continue calcium and Vid D supplements Lab Results Component Value Date PARATHYROID 54.8 02/05/2024 PARATHYROID 93.3 (H) 06/04/2023 [id number] 39.6 02/05/2024 CREATININE 0.68 02/05/2024 CA 10.0 [...] Description 08/25/2024 11:00 AM EDT Office Visit [facility] MEDICINE [address] [place] [address] Ashanti Montenegro MD [address] [place] [address] Scheduled Referrals Name Type Priority Associated Diagnoses [...] EST) Sodium 138 135 - 145 mmol/L [facility] Potassium 3.7 3.3 - 5.1 mmol/L [facility] Chloride 107 96 - 108 mmol/L [facility] Carbon Dioxide 24 22 - 29 mmol/L [facility] Anion Gap 11(L) 12 - 20 [facility] Urea Nitrogen (BUN) 7(L) 9 - 16 mg/dL [facility] Creatinine, Serum 0.62 0.5 - 1.4 mg/dL [facility] Estimated Glomerular Filt Rate >60 [facility] Comment:Chronic Kidney Disea se: Estimated GFR < 60 mL/min/[id number] Kidney Disease: Estimated GFR < 15 mL/min/1.73m2 Glucose 85 60 - 115 mg/dL [facility] Calcium 9.7 8.4 - 10.2 mg/dL [facility] Blood Venous blood specimen / Unknown 07/08/2024 11:25 AM EST 07/08/2024 1:22 PM EST us Ashanti Montenegro MD LAB BLOOD ORDERABLES Final Result [facility] [address] [place] [phone] [phone] * (ABNORMAL) Lipid Panel, Standard (07/08/2024 11:25 AM EST) Triglycerides 56 <150 mg/dL [facility] Comment:Desirable Triglyceri de: less than 150 mg/dLBorderline High Triglyceride 150-199 mg/dLHigh Triglyceride: 200-499 mg/dLVery High Triglyceride: greater than or equal to 5OO mg/dL Cholesterol 230(H) <200 mg/dL [facility] Comment:Desirable Cholestero l: less than 200 mg/dLBorderline High Cholesterol: 200-239 mg/dLHigh Cholesterol: greater than 239 mg/dL LDL Cholesterol Calculated 154(H) <100 mg/dL [facility] Comment:Desirable LDL: less than 100 mg/dLNear Optimal/Above Optimal LDL: 110- 129 mg/dLBorderline High LDL: 130-159 mg/dLHigh LDL: 160-189 mg/dLVery High LDL: greater than or equal to 190 mg/dL HDL Cholesterol 65 >40 mg/dL [facility] Comment:Desirable HDL: great er than 40 mg/dL Note: This HDL assay may give artificially low results in patients with liver disease. Blood Venous blood specimen / Unknown 07/08/2024 11:25 AM EST 07/08/2024 1:22 PM EST Ashanti Montenegro MD LAB BLOOD ORDERABLES Final Result Performing Organization Address City/State/[facility] Co de Phone Number [facility] [address] [place] [phone] * Hepatic Function Panel (07/08/2024 11:25 AM EST) Bilirubin, Total 0.6 0.0 - 1.0 mg/dL [facility] Comment:Slight Icterus. Bilirubin, Direct 0.2 0.0 - 0.5 mg/dL [facility] Comment:Slight Icterus. Aspartate Amino Transferase 22 5 - 31 U/L [facility] Alanine Aminotransferase 20 0 - 31 U/L [facility] Total Protein 7.7 6.5 - 8.0 g/dL [facility] Albumin Level 4.3 3.5 - 5.0 g/dL [facility] Alkaline Phosphatase 60 39 - 117 U/L [facility] Blood Venous blood specimen / Unknown 07/08/2024 11:25 AM EST 07/08/2024 1:22 PM EST Ashanti Montenegro MD LAB BLOOD ORDERABLES Final Result Performing Organization Address [facility] Co de Phone Number [facility] [address] [place] [phone] [phone] * Albumin, Random Urine W/Creatinine (07/08/2024 11:25 AM EST) Creatinine, Urine 83.85 mg/dL [facility] Microalbumin Urine 8.0 mg/L [facility] Microalbum Creatinine Ratio Ur 9.5 <30 ug/mg cr [facility] Comment:Albumin/Creatinine R atio Reference Ranges: Normal: < 30 ug/mg creatinine Microalbuminuria: 30 - 300 ug/mg creatinineClinical Albuminuria: > 300 ug/mg creatinine Urine 07/08/2024 11:2 5 AM EST 07/08/2024 1:12 PM EST Ashanti Montenegro MD LAB URINE ORDERABLES Final Result Performing Organization Address [facility] Co de Phone Number [facility] [address] [place] [phone] documented in this encounter Visit Diagnoses [...] documented as of this encounter Care Teams Commercial Leasing Agent Relationship Specialty Start Date End Date Ashanti Montenegro MD [address] [place] [phone] PCP - General Family Medicine 06/16/18 Fartun Guidry, [place]eb[place] [address] [place] [phone] Pharmacist Internal Medicine 02/05/24 Ele Meza [address] [place] [phone] Gynecology 07/08/24 documented as of this encounter
--- OUTSIDE RECORDS SUMMARY | 2024-08-17 00:09 | XMS_ITS | Clinical Summary ---
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 30 tablet 11 07/08/19 25 026 Active amLODIPine (Norvasc) 10 MG tabletIndication s:Primary hypertension Take 1 tablet (10 mg) by mouth Once per day. 30 tablet 11 08/10/19 25 026 Active amLODIPine (Norvasc) 2.5 MG tabletIndication s:Primary hypertension Take 2 tablets (5 mg) by mouth Once per day. 60 tablet 11 07/08/19 25 025 Discontinued Active Problems Patient Care Coordination No te Formatting of this note migh t be different from the original. [facility] Senior Physician: Kely, member services number [phone], provider services line, , option 4 Monotype Operator Agency: Refused [facility] Problem Noted Date Diagnosed [...] a healthy lifestyle, being active in her jehovah's witness and prayer, relaxation techniques, and patient agreed to seeing Collaborative Drug Therapy Managment Program with our PharmD, CDCES as well as cardiology. Pt saw CDTM [...] a healthy lifestyle, being active in her jehovah's witness and prayer, relaxation techniques, and patient agreed to seeing Collaborative Drug Therapy Managment Program with our PharmD, CDCES as well as cardiology. Pt saw CDTM [...] a healthy lifestyle, being active in her jehovah's witness and prayer, relaxation techniques, and patient agrees to seeing Collaborative Drug Therapy Managment Program with our PharmD, CDCES as well as cardiology. 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 S/p excision 01/2006 and 5 years of Tamoxifen. Followed by [facility]. Last visit 03/2014 -Last bilateral Mammo [...] and 5 years of Tamoxifen. Followed by [facility]. Last visit 03/2014 -Last bilateral Mammo [...] and 5 years of Tamoxifen. Followed by [facility]. Last visit 03/2014 -Last bilateral Mammo [...] and 5 years of Tamoxifen. Followed by [facility]. Last visit 03/2014 -Last bilateral Mammo [...] and 5 years of Tamoxifen. Followed by [facility]. Last visit 03/2014 -Last bilateral Mammo [...] PARATHYROID 54.8 02/05/2024 PARATHYROID 93.3 (H) 06/04/2023 [id number] 39.6 02/05/2024 CREATININE 0.68 02/05/2024 CA 10.0 [...] PARATHYROID 54.8 02/05/2024 PARATHYROID 93.3 (H) 06/04/2023 [id number] 39.6 02/05/2024 CREATININE 0.68 02/05/2024 CA 10.0 [...] Component Value Date PARATHYROID 93.3 (H) 06/04/2023 [id number] 43.9 06/04/2023 CREATININE 0.65 06/04/2023 CA 9.7 [...] Blind left eye 10/05/2012 Hypertension 01/13/2012 Overview (08/11/2024): -uncontrolled HTN for years and multiple concerns [...] pt will be open to cardiology recommendations. -she continues to stop her medications and go to the ER for elevated blood pressure. They increased her amlodipine to 10mg and I sent refills 08/10/24 Assessment & Plan (07/27/2024 9:13 AM EST): [...] Therapy Managment Program with our PharmD, SHE and cardiology on 01/29/2024 -start amlodipine 5mg/valsartan [...] and 09/2016, 03/2021 all NILM HPV negative. Pole Framer Machine 03/2021 NILM HPV negative Pole Framer Machine 02/2019 visit without pap due to previous [...] and 09/2016, 03/2021 all NILM HPV negative. Pole Framer Machine 03/2021 NILM HPV negative Pole Framer Machine 02/2019 visit without pap due to previous [...] and 09/2016, 03/2021 all NILM HPV negative. Pole Framer Machine 03/2021 NILM HPV negative Pole Framer Machine 02/2019 visit without pap due to previous [...] Encounters Date Type Department Care Team Description 08/16/2024 Orders Only GENERIC EXTERNAL DATA DEPARTMENT Provider, Generic External Data 08/16/[address] [address] Ashanti Davila MD FYI 08/10/2024 Orders Only [address] [address] Ashanti Davila MD Primary hypertension (Primary Dx) 08/10/[address] [address] Ashanti Davila MD ER Follow-up 08/09/2024 Orders Only GENERIC EXTERNAL DATA DEPARTMENT Provider, Generic External Data 07/28/[address] [address] Ashanti Davila MD Nurse Triage 07/27/2024 Orders Only [facility] [address] [place] [address] Ashanti Davila MD 07/23/[address] [address] Ashanti Davila MD FYI 07/08/2024 10:45 AM EST Office Visit [address] [address] Ashanti Davila MD Other specified health status (Primary Dx); Primary hypertension; Hyperparathyroidism (CMS/HCC); Dyslipidemia; Overweight; Dietary counseling; Exercise counseling; Cardiac risk counseling 07/08/2024 Travel 07/06/2024 Telephone [facility] [address] [place] [address] Irma Gatica MA chartprep 06/29/2024 Patient Outreach [facility] [address] [place] [address] Ashanti Davila MD Pre-visit Planning (SDOH Screening negative and Tobacco screening negative) 05/20/2024 Telephone [facility] [address] [place] [address] Ashanti Davila MD Nurse Triage from Last 3 Months Immunizations Name Administration [...] 04/26/2024 10:12 AM EST Plan of Treatment Upcoming Encounters Date Type Department Care Team (Late st Contact Info) Description 08/25/2024 11:00 AM EDT Office Visit [facility] [address] [place] [address] Ashanti Davila MD [address] [place] [address] Health Maintenance Due Date Last Done Comments [...] SDOH Screening 06/29/2025 06/29/2024 COVID-19 Vaccine ( season) 2025 Postponed from 02/15/2024 (Patient Refused) Depression Screening 07/08/2025 07/08/2024, 07/08/19 Tobacco Screening 07/08/2025 07/08/2024 Cervical Cancer Screening [...] TROPONIN I Routine 08/16/2024 4:12 PM EST MAGNESIUM Routine 08/16/2024 4:12 PM EST COMPREHENSIVE METABOLIC PANEL Routine 08/16/2024 4:12 PM EST CBC WITH AUTO DIFFERENTIAL Routine 08/16/2024 4:12 PM EST SARS COV2/INFLUENZA A/B AND RSV RNA QL NAAT Routine 08/16/2024 4:12 PM EST HIGH SENSITIVITY TROPONIN I Routine 08/09/2024 8:38 AM EST CBC WITH AUTO DIFFERENTIAL Routine 08/09/2024 8:38 AM EST COMPREHENSIVE METABOLIC PANEL Routine 08/09/2024 12:06 AM EST BASIC METABOLIC PANEL Routine 07/08/2024 [...] Recently Relevant to Health Maintenance Results * High Sensitivity Troponin I (08/16/2024 4:12 PM EST) Only the most recent of2 resultswithin the time period is included. TROPONIN I HIGH SENSITIVITY <2.7 <3.5 - 17.0 ng/L [facility] Comment:The Montiel high sens itivity Troponin-I results should beused in conjunction with other diagnostic information suchas ECG, clinical observations and information, and patientsymptoms to aid in the diagnosis of [place]. 08/16/2024 4:12 PM EST 08/16/2024 4:23 PM EST Generic External Data Provider LAB BLOOD ORDERAB LES Final Result Performing Organization Address [facility] Co de Phone Number [facility] [address] [place] [phone] * SARS-CoV-2 RNA, Influenza A/B, and RSV RNA, Ql NAAT (08/16/2024 4:12 PM EST) Influenza A PCR NEGATIVE Negative [facility] Influenza B PCR NEGATIVE Negative [facility] Resp Syncy Virus RNA Qual PCR NEGATIVE Negative [facility] SARS COV2 PCR NEGATIVE Negative [facility] Comment:All test results mus t [...] use by authorized laboratories.Testing performed on the Han grass biomass GeneXpert utilizingreal-time RT-PCR.All SARS CoV2 and positive influenza A/B results arereported to [facility]. 08/16/2024 4:12 PM EST 08/16/2024 4:23 PM EST Generic External Data Provider LAB MICROBIOLOGY - GENERAL ORDERABLES Final Result Performing Organization Address [facility] Co de Phone Number [facility] [address] [place] [phone] * (ABNORMAL) CBC auto differential (08/16/2024 4:12 PM EST) Only the most recent of2 resultswithin the time period is included. White Blood Count 5.2 4.8 - 10.8 X10*3/uL [facility] Red Blood Count 4.80 4.20 - 5.50 X10*6/uL [facility] Hemoglobin 13.7 12.0 - 16.0 g/dl [facility] Hematocrit 41.4 37.0 - 47.0 % [facility] Mean Corpuscular Volume 86.3 80.0 - 98.0 fL [facility] Mean Corpuscular Hemoglobin 28.5 27.0 - 33.0 pg [facility] Mean Corpuscular HGB Conc 33.1 31.0 - 35.0 g/dl [facility] Red Cell Distribution Width 13.1 11.0 - 16.0 % [facility] Platelet Count 227 160 - 400 X10*3/uL [facility] Mean Platelet Volume 10.3 9.4 - 12.3 fL [facility] Neutrophils Percent Auto 73.9(H) 45 - 73 % [facility] Imm Gran Pct Auto 0.2 0.0 - 0.4 % [facility] Lymphocytes Percent Auto 19.3(L) 20 - 40 % [facility] Monocytes Percent Auto 5.8 2 - 11 % [facility] Eosinophils Percent Auto 0.4 0 - 4 % [facility] Basophils Percent Auto 0.4 0 - 2 % [facility] NRBC Pct Auto 0.0 0.0 - 0.2 /100WBC [facility] Neutrophils Absolute Auto 3.8 2.0 - 8.3 x10*3/uL [facility] Imm Gran Abs Auto 0.01 0.00 - 0.03 X10*3/uL [facility] Lymphocytes Absolute Auto 1.0(L) 1.2 - 4.9 X10*3/uL [facility] Monocytes Absolute Auto 0.3 0.1 - 1.2 X10*3/uL [facility] Eosinophils Absolute Auto 0.0 0.0 - 0.4 X10*3/uL [facility] Basophils Absolute Auto 0.0 0.0 - 0.2 X10*3/uL [facility] NRBC Abs Auto 0.000 0.0 - 0.012 X10*3/uL [facility] 08/16/2024 4:12 PM EST 08/16/2024 4:23 PM EST Generic External Data Provider LAB BLOOD ORDERAB LES Final Result Performing Organization Address [facility]/ZIP Co de Phone Number [facility] [address] [place] [phone] * (ABNORMAL) Magnesium (08/16/2024 4:12 PM EST) Pathologist [facility] Magnesium 2.7(H) 1.6 - 2.6 mg/dL [facility] 08/16/2024 4:12 PM EST 08/16/2024 4:23 PM EST Generic External Data Provider LAB BLOOD ORDERAB LES Final Result Performing Organization Address [facility] de Phone Number [facility] [address] [place] [phone] * (ABNORMAL) Comprehensive Metabolic Panel (08/16/2024 4:12 PM EST) Only the most recent of2 resultswithin the time period is included. Sodium 140 135 - 145 mmol/L [facility] Potassium 4.1 3.3 - 5.1 mmol/L [facility] Comment:Slight Hemolysis.Int erpret result with caution. Chloride 105 96 - 108 mmol/L [facility] Carbon Dioxide 27 22 - 29 mmol/L [facility] Anion Gap 12 12 - 20 [facility] Urea Nitrogen (BUN) 9 9 - 16 mg/dL [facility] Creatinine, Serum 0.64 0.5 - 1.4 mg/dL [facility] Creatinine Clr Calc Pharmacy 72.4 [facility] Comment:Provided height and weight: 160.02 cm,61.5 kg.eGFR (calculated from the MDRD study equation) and eCrCl(calculated from the Cockcroft-Gault equation) are based ondifferent parameters and may not yield comparable results.If eCrCl result is absurd, please check patient'sheight/weight. Estimated Glomerular Filt Rate >60 [facility] Comment:Chronic Kidney Disea se: Estimated GFR < 60 mL/min/[id number] Kidney Disease: Estimated GFR < 15 mL/min/1.73m2 Glucose 107 60 - 115 mg/dL [facility] Calcium 9.5 8.4 - 10.2 mg/dL [facility] Bilirubin, Total 0.3 0.0 - 1.0 mg/dL [facility] Comment:Slight Icterus. Aspartate Amino Transferase 30 5 - 31 U/L [facility] Comment:Slight Hemolysis.Int erpret result with caution. Alanine Aminotransferase 28 0 - 31 U/L [facility] Total Protein 8.2(H) 6.5 - 8.0 g/dL [facility] Albumin Level 4.5 3.5 - 5.0 g/dL [facility] Alkaline Phosphatase 69 39 - 117 U/L [facility] 08/16/2024 4:12 PM EST 08/16/2024 4:23 PM EST us Generic External Data Provider LAB BLOOD ORDERAB LES Final Result [facility] [address] [place] [address] [phone] * Albumin, Random Urine W/Creatinine (07/08/2024 11:25 AM EST) Creatinine, Urine 83.85 mg/dL [facility] Microalbumin Urine 8.0 mg/L [facility] Microalbum Creatinine Ratio Ur 9.5 <30 ug/mg cr [facility] Comment:Albumin/Creatinine R atio Reference Ranges: Normal: < 30 ug/mg creatinine Microalbuminuria: 30 - 300 ug/mg creatinineClinical Albuminuria: > 300 ug/mg creatinine Urine 07/08/2024 11:2 5 AM EST 07/08/2024 1:12 PM EST Ashanti Davila MD LAB URINE ORDERABLES Final Result Performing Organization Address [facility] Co de Phone Number [facility] [address] [place] [phone] * Hepatic Function Panel (07/08/2024 11:25 AM EST) Bilirubin, Total 0.6 0.0 - 1.0 mg/dL [facility] Comment:Slight Icterus. Bilirubin, Direct 0.2 0.0 - 0.5 mg/dL [facility] Comment:Slight Icterus. Aspartate Amino Transferase 22 5 - 31 U/L [facility] Alanine Aminotransferase 20 0 - 31 U/L [facility] Total Protein 7.7 6.5 - 8.0 g/dL [facility] Albumin Level 4.3 3.5 - 5.0 g/dL [facility] Alkaline Phosphatase 60 39 - 117 U/L [facility] Blood Venous blood specimen / Unknown 07/08/2024 11:25 AM EST 07/08/2024 1:22 PM EST Ashanti Davila MD LAB BLOOD ORDERABLES Final Result Performing Organization Address [facility] Co de Phone Number [facility] [address] [place] [phone] * (ABNORMAL) Lipid Panel, Standard (07/08/2024 11:25 AM EST) Triglycerides 56 <150 mg/dL [facility] Comment:Desirable Triglyceri de: less than 150 mg/dLBorderline High Triglyceride 150-199 mg/dLHigh Triglyceride: 200-499 mg/dLVery High Triglyceride: greater than or equal to 5OO mg/dL Cholesterol 230(H) <200 mg/dL [facility] Comment:Desirable Cholestero l: less than 200 mg/dLBorderline High Cholesterol: 200-239 mg/dLHigh Cholesterol: greater than 239 mg/dL LDL Cholesterol Calculated 154(H) <100 mg/dL [facility] Comment:Desirable LDL: less than 100 mg/dLNear Optimal/Above Optimal LDL: 110- 129 mg/dLBorderline High LDL: 130-159 mg/dLHigh LDL: 160-189 mg/dLVery High LDL: greater than or equal to 190 mg/dL HDL Cholesterol 65 >40 mg/dL [facility] Comment:Desirable HDL: great er than 40 mg/dL Note: This HDL assay may give artificially low results in patients with liver disease. Blood Venous blood specimen / Unknown 07/08/2024 11:25 AM EST 07/08/2024 1:22 PM EST us Ashanti Davila MD LAB BLOOD ORDERABLES Final Result [facility] [address] [place] [phone] * (ABNORMAL) Basic Metabolic Panel (07/08/2024 11:25 AM EST) Sodium 138 135 - 145 mmol/L [facility] Potassium 3.7 3.3 - 5.1 mmol/L [facility] Chloride 107 96 - 108 mmol/L [facility] Carbon Dioxide 24 22 - 29 mmol/L [facility] Anion Gap 11(L) 12 - 20 [facility] Urea Nitrogen (BUN) 7(L) 9 - 16 mg/dL [facility] Creatinine, Serum 0.62 0.5 - 1.4 mg/dL [facility] Estimated Glomerular Filt Rate >60 [facility] Comment:Chronic Kidney Disea se: Estimated GFR < 60 mL/min/[id number] Kidney Disease: Estimated GFR < 15 mL/min/1.73m2 Glucose 85 60 - 115 mg/dL [facility] Calcium 9.7 8.4 - 10.2 mg/dL [facility] Blood Venous blood specimen / Unknown 07/08/2024 11:25 AM EST 07/08/2024 1:22 PM EST Ashanti Davila MD LAB BLOOD ORDERABLES Final Result Performing Organization Address [facility] Co de Phone Number [facility] [address] [place] [phone] [phone] * Hepatitis C Antibody with Reflex to HCV, RNA, Quantitative, Real-Time PCR (06/04/2023 11:33 AM EST) Hepatitis C Antibody Nonreactive Nonreactive [facility] Comment:Antibodies to HCV no t detected; does not exclude early acuteHCV infection. Blood Venous blood specimen / Unknown 06/04/2023 11:33 AM EST 06/04/2023 1:10 PM EST Ashanti Davila MD LAB BLOOD ORDERABLES Final Result Performing Organization Address [facility] Co de Phone Number [facility] [address] [place] [phone] * BI Mammogram Screening Bilateral (05/06/2023) Anatomical Region Laterality Modality Breast Bilateral Mammography Historical Provider IMG BI PROCEDURES Final R esult * HPV High Risk PCR (04/03/2021 12:00 AM EDT) Swab Cervical swab / Unknown Historical Provider LAB MICROBIOLOGY - GENERA L ORDERABLES Final Result Performing Organization Address [facility] Co de Phone Number [facility] [address] [place] [address] [phone] * Pap Smear (07/04/2020 12:00 AM EST) Swab Historical Provider LAB CYTOLOGY ORDERABLES F inal Result Performing Organization Address [facility] Co de Phone Number [facility] [address] [place] [phone] * Colonoscopy (12/08/2019) Colonoscopy noral with Dr. Pineda us Historical Provider HEALTH MAINTENANCE Final Result from Last 3 Months or Most Recently Relevant to Health Maintenance [place] [address] [place] [address] - [facility] Advance Directives Documents on File Type Date Recorded Patient Cupola Operator Insulation Expl anation Advance Directives and Living Will 01/29/2024 1:57 PM Health Care Proxy Care Teams Wigs Salesperson Relationship Specialty Start Date End Date Corona, MD Ashanti [address] [place] [address] PCP - General Family Medicine 06/16/18 Fartun Guidry, Bebeto [address] [place] [address] Pharmacist Internal Medicine 02/05/24 Ele Meza [address] [place] [address] OMERO Allen [address] Gynecology 07/08/24
--- OUTSIDE RECORDS SUMMARY | 2024-08-17 00:09 | XMS_ITS | Encounter Summary ---
Author Organization [employer] Address [address] [facility] [address] [place] [address] Care Team Providers Care Ladle Cleaner Name Role Phone Ashanti Davila MD Primary Care Provider [phone]- [phone] Fartun Guidry PharmD Unavailable [phone]- [phone] Ele Meza Unavailable Encounter Details Date Type Department Care Team (Late st Contact Info) Description 07/27/2024 Orders Only [facility] [address] [place], [place] [phone] Ashanti Davila MD [address] [place], [place] [phone] Social History Tobacco Use Types Packs/Day Years [...] Description 08/25/2024 11:00 AM EDT Office Visit [facility] [address] [place] [address] Ashanti Davila MD [address] [place] [phone] documented as of this encounter Visit Diagnoses Not on filedocumented in this encounter Additional Health Concerns Assessment Noted Time PHQ-9 Depression Total Score: 0 07/08/19 25 10:38 AM EST documented as of this encounter Care Teams Ladle Cleaner Relationship Specialty Start Date End Date Ashanti Davila MD [address] [place] [phone] PCP - General Family Medicine 06/16/18 Fartun Guidry, MahamedD [address] [place] [phone] Pharmacist Internal Medicine 02/05/24 Ele Meza [address] [address] Gynecology 07/08/24 documented as of this encounter
--- OUTSIDE RECORDS SUMMARY | 2024-08-17 00:09 | XMS_ITS | Encounter Summary ---
Author Organization [employer] Address [address] [facility] 7t [place] [address] Care Team Providers Care Forestry Laborer Name Role Phone Ashanti Davila MD Primary Care Provider +1- [phone] Fartun Guidry PharmD Unavailable +1- [phone] Ele Meza Unavailable Reason for Visit * Reason Onset Date Comments ER Follow-up 08/10/2024 Encounter Details Date Type Department Care Team (Late st Contact Info) Description 08/10/2024 Telephone [facility] [address] [place], [place] [phone] Ashanti Davila MD [address] [place], [place] [phone] ER Follow-up Social History Tobacco Use Types Packs/Day Years [...] Telephone Encounter - Karolyn Adler RN - 08/11/2024 10:38 AM EST TC placed to pt with S electorate officer Cristal #[id number] to inform that PCP sent a new prescription of Amlodipine 10 MG to the pt preferred pharmacy. Pt stated understanding and had no further questions or concerns. * Telephone Encounter - Karolyn Adler RN - 08/10/2024 1:49 PM EST TC placed to pt with S electorate officer #[id number] to f/u and assist scheduling the pt for an ED F/U afterbeing seen at [facility] ED on 08/09 for elevated blood pressure readings. The pt had not been taking her medications for around a weeks time. Per [employer] Additional Instructions: Follow-up with your primary care physician we sent a prescription for Norvasc 10 mg take 1 tablet daily we gave you 10 day supply, but blood pressure needs to be treated by the primary care physician not by the emergency room. So call your primary care physician today arrange a follow-up Appointment. Pt agreeable to scheduling a f/u with PCP Dr. Machuca's soonest opening on 08/25/2024. Pt advised that a message will be sent to Dr. Machuca's to see if a new prescription of Amlodipine 10 MG can be sent to the pt preferred pharmacy. * Telephone Encounter - Agustina Isbell - 08/10/2024 11:46 AM EST Patient calling to report ED visit on : Date: 08-09-2024 Hospital: [facility] Seen for: High blood pressure Symptomatic No *if yes message should go to Triage Patient advised will forward to team nurse for follow up documented in this encounter Plan of Treatment Upcoming Encounters Date Type Department Care Team (Late st Contact Info) Description 08/25/2024 11:00 AM EDT Office Visit [facility] [address] [place] [address] Ashanti Davila MD [address] [place] [address] documented as of this encounter Visit Diagnoses Not on filedocumented in this encounter Additional Health Concerns Assessment Noted Time PHQ-9 Depression Total Score: 0 07/08/19 10:38 AM EST documented as of this encounter Care Teams Forestry Laborer Relationship Specialty Start Date End Date Ashanti Davila MD [address] [place] [address] PCP - General Family Medicine 06/16/18 Fartun Guidry, MahamedD [address] [place] [address] Pharmacist Internal Medicine 02/05/24 Ele Meza [address] [place] [address] Gynecology 07/08/24 documented as of this encounter
--- OUTSIDE RECORDS SUMMARY | 2024-08-17 00:09 | XMS_ITS | Encounter Summary ---
Author Organization [facility] Address 75 [facility] 7t [place] [address] Care Team Providers Care Sweatband Drummer Name Role Phone Ashanti Davila MD Primary Care Provider + [phone] Fartun Guidry PharmD Unavailable [phone] Ele Meza Unavailable Encounter Details Date Type Department Care Team (Latest Contact Info) Description 11/13/2018 Abstract [facility] CONVERSIONS Dental, Provider, DDS Social History Tobacco [...] Description 08/25/2024 11:00 AM EDT Office Visit [facility] MEDICINE [address] [place] [address] Ashanti Davila MD [address] [place] [address] documented as of this encounter Visit Diagnoses Not on filedocumented in this encounter Care Teams Sweatband Drummer Relationship Specialty Start Date End Date Ashanti Davila MD [address] [place] [address] PCP - General Family Medicine 06/16/18 Fartun Guidry, PharmD [address] [place] [address] Pharmacist Internal Medicine 02/05/24 Ele Meza [address] [address] Gynecology 07/08/24 documented as of this encounter
--- OUTSIDE RECORDS SUMMARY | 2024-08-17 00:09 | XMS_ITS | Encounter Summary ---
Author Organization [employer] Address 75 [facility] 7t [place] [address] Care Team Providers Care Senior Construction Project Manager Name Role Phone Ashanti Davila MD Primary Care Provider +1- [phone] Fartun Guidry PharmD Unavailable +1- [phone] Ele Meza Unavailable Reason for Visit * Reason Onset Date Comments Nurse Triage 07/28/2024 Encounter Details Date Type Department Care Team (Late st Contact Info) Description 07/28/2024 Telephone [facility] [address] [place], [place] [phone] Ashanti Davila MD [address] [place], [place] [phone] Nurse Triage Social History Tobacco Use Types [...] EST TC placed to pt with S intrusion analyst Jorden #[id number] to f/u regarding pt visit to [facility] ED for elevated blood pressure. RN spoke [...] see below . Sent to team for [facility] ER status check PRN. * Telephone Encounter - Soco Mauro RN - 07/28/2024 10:59 AM EST No intrusion analyst needed as this comic writer speaks Samoan. Call returned to [facility] to triage below. Reports having elevated BP of 163/100. Pt has not taken BP meds this morning. Per started taking meds on Friday. Per pt palpitations started after taking meds. Reports having CASAS and left sided arm and leg pain intermittetn. Denies any CP. Pt alert, speaking in clear full sentences. NO SOB per pt. Pt advised of disposition, declines this comic writer contact EMS states will seek [facility] ER with private transport. Advised to call [...] body only The caller accepted this outcome. [phone] maori documented in this encounter Plan of Treatment Upcoming Encounters Date Type Department Care Team (Late st Contact Info) Description 08/25/2024 11:00 AM EDT Office Visit [facility] MED[facility]INE [address] [place] [address] Ashanti Davila MD [address] [place] [address] documented as of this encounter Visit Diagnoses Not on filedocumented in this encounter Additional Health Concerns Assessment Noted Time PHQ-9 Depression Total Score: 0 07/08/19 25 10:38 AM EST documented as of this encounter Care Teams Senior Construction Project Manager Relationship Specialty Start Date End Date Ashanti Davila MD [address] [place] [address] PCP - General Family Medicine 06/16/18 Fartun Guidry, MahamedD [address] [place] [address] Pharmacist Internal Medicine 02/05/24 Ele Meza [address] [place] [address] Gynecology 07/08/24 documented as of this encounter
--- OUTSIDE RECORDS SUMMARY | 2024-08-17 00:09 | XMS_ITS | Encounter Summary ---
Author Organization [employer] Address 75 [facility] 7t [place] [address] Care Team Providers Care Building Rental Superintendent Name Role Phone Ashanti Davila MD Primary Care Provider +1- [phone] Fartun Guidry PharmD Unavailable Ele Meza Unavailable Encounter Details Date Type Department Care Team (Late st Contact Info) Description 06/30/2022 Abstract [facility] [address] [place], [place] [phone] Ashanti Davila MD [address] [place], [place] [phone] Preventative health care Social History Tobacco Use [...] and 5 years of Tamoxifen. Followed by [facility]. Last visit 03/2014 -Last bilateral [...] and 09/2016, 03/2021 all NILM HPV negative. 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 02/2019 visit without pap due to previous [...] Description 08/25/2024 11:00 AM EDT Office Visit [facility] [address] [place] [address] Ashanti Davila MD [address] [place] [address] documented as of this encounter Procedures Procedure [...] AM EDT) Swab Cervical swab / Unknown Result [facility] Provider LAB MICROBIOLOGY - GENERA L ORDERABLES Final Result Performing Organization Address [facility]/ZIP Co de Phone Number [facility] [address] [place] [phone] * Pap Smear (07/04/2020 12:00 AM EST) Swab Historical Provider LAB CYTOLOGY ORDERABLES F inal Result Performing Organization Address [facility]/ZIP Co de Phone Number [facility] [address] [place] [phone] * Colonoscopy (12/08/2019) Pathologist [facility] Colonoscopy noral with Dr. Pineda Historical Provider HEALTH MAINTENANCE Final Result documented in this encounter Visit Diagnoses Diagnosis Preventative health care Routine general medical examination at a health care facility documented in this encounter Care Teams Building Rental Superintendent Relationship Specialty Start Date End Date Ashanti Davila MD [address] [place] [address] PCP - General Family Medicine 06/16/18 Fartun Guidry, MahamedD [address] [place] [address] Pharmacist Internal Medicine 02/05/24 Ele Meza [address] [place] [address] Gynecology 07/08/24 documented as of this encounter
--- OUTSIDE RECORDS SUMMARY | 2024-08-17 00:09 | XMS_ITS | Encounter Summary ---
Author Organization [employer] Address [address] [facility] 7t [place] [address] Care Team Providers Care Aircraft Air Conditioning Mechanic Name Role Phone Ashanti Davila MD Primary Care Provider +1- [phone] Fartun Guidry PharmD Unavailable +1- [phone] Ele Meza Unavailable Reason for Visit * Reason Onset Date Comments FYI 08/16/2024 Encounter Details Date Type Department Care Team (Late st Contact Info) Description 08/16/2024 Telephone [facility] MEDICINE 230 [place], [place] [phone] Ashanti Davila MD 230 [place], [place] [phone] FYI Social History Tobacco Use Types Packs/Day [...] encounter Miscellaneous Notes * Telephone Encounter - Tierra Esqueda RN - 08/16/2024 1:24 PM EST Called pt. Via [employer] food demonstrator wait time long. Called pt. Via [employer] food demonstrator [phone] Irma. Pt. States that She was taking her Amlodipine 10mg x 5 days. On the fifth day pt. Woke up in the middle of the night and was having chest pain, jaw pain, shoulder pain and it was radiating down her leftarm with left hand numbness. Pt states it lasted only a few minutes. Pt. Denies any sweating SOB atthe time. She states she went into kitchen and drank water and felt better. I advised that the nexttime that happens, she is to call 911 as that sounds like sx. Of a heart attack. Pt states she wentto ED the other day but, it was taking too long so she left. Pt denies any chest pain at present but also has not taken her Amlodipine x 5 days. Pt. Has not been checking her BP either. I advised that pt. Needs to be evaluated and assessed for her BP, chest pain sx and stopping Amlodipine 10mg. Pt will have daughter bring her to [facility] ED today for evaluation as I stated the sx. She had the other day could be sx. Of a heart attack. Please fu with pt. For status check on 08/17/24 to see if she went to ED on 08/16/24 or if she comes to [facility] walk in. Protocol Used: Chest Pain (Adult) Protocol-Based Disposition: Go to ED Now Positive Triage Questions: * Pain also in shoulder(s) or arm(s) or jaw * Heart beating irregularly or very rapidly * All higher-acuity triage questions were negative * Telephone Encounter - Justyna Godoy - 08/16/2024 1:12 PM EST Tc from pt returning phone call. Greek * Telephone Encounter - Tierra Esqueda RN - 08/16/2024 10:45 AM EST Called pt. Via [employer] food demonstrator [phone]. No answer. Marriage And Family Therapist left a message on pt. Voicemail to call back [facility] Nurses at [phone]. Called back x2. No answer. Called back x3 No answer/ RE: Gets chest pain when takes Amlodipine so pt. Stopped med. Please reach out to pt. For assessment. * Telephone Encounter - Efe Allen - 08/16/2024 10:18 AM EST Tc from pt stating that she stopped taking med amLODIPine (Norvasc) 10 MG tablet due to pt taking med and waking up with Chest pain Hand being asleep and Back Pain. Contact pt at [phone] documented in this encounter Plan of Treatment Upcoming Encounters Date Type Department Care Team (Late st Contact Info) Description 08/25/2024 11:00 AM EDT Office Visit [facility] MEDICINE [address] [place] [address] Ashanti Davila MD [address] [place], [place] [phone] documented as of this encounter Visit Diagnoses Not on filedocumented in this encounter Additional Health Concerns Assessment Noted Time PHQ-9 Depression Total Score: 0 07/08/19 10:38 AM EST documented as of this encounter Care Teams Aircraft Air Conditioning Mechanic Relationship Specialty Start Date End Date Ashanti Davila MD [address] [place] [address] PCP - General Family Medicine 06/16/18 Fartun Guidry PharmD [address] [place] [address] Pharmacist Internal Medicine 02/05/24 Ele Meza [address] [address] Gynecology 07/08/24 documented as of this encounter
== END 2024-08-17 00:10 | disposition left against medical advice (07) ==
LOC: HO.ED 08-17 00:07
PROVIDERS: Physician Assistant Medical; Emergency Provider Emergency Medicine; PCP Family Medicine
DX: R07.89 Other chest pain (principal); R20.0 Anesthesia of skin; Z03.818 Encounter for observation for suspected exposure to other biological agents ruled out; Z79.899 Other long term (current) drug therapy
CPT/HCPCS: 0241U; 80053; 83735; 84484; 85025; 93005; 99283

== ENCOUNTER → 2024-08-16 15:59 | Outpatient (BNV) | payer OTHER, SELFPAY | PROVIDERS: Emergency Provider Emergency Medicine; PCP Family Medicine; Visit Provider Internal Medicine Cardiovascular Disease | DX: R07.9 Chest pain, unspecified (principal) | CPT/HCPCS: 93010 ==

== ENCOUNTER 2024-09-11 22:55 | Emergency (ER) | payer OTHER, SELFPAY ==
--- NOTE | ~2024-09-11 | XR_ITS ---
CLINICAL HISTORY: chest pain hypertension 1 view chest x-ray Comparison: None Findings: Mild left lower lobe atelectasis. No significant pleural effusion or pneumothorax. Prominent cardiac silhouette. No acute fracture. IMPRESSION: Mild left lower lobe atelectasis. This document has been electronically signed by: Harry Samuel MD on 09/11/2024 23:53:17
[2024-09-11 22:58] VITALS: BP 210/115; PULSE 85; RESP 16; TEMP 36.8; O2SAT 99; BMI 26.7
--- NOTE | 2024-09-11 23:01 | ECG_ITS ---
Test Reason : CHEST PAIN Blood Pressure : */* mmHG Vent. Rate : 89 BPM Atrial Rate : 89 BPM P-R Int : 208 ms QRS Dur : 90 ms QT Int : 346 ms P-R-T Axes : 48 21 37 degrees QTcB Int : 420 ms Normal sinus rhythm Minimal voltage criteria for LVH, may be normal variant ( Sokolow-Lira ) Borderline ECG When compared with ECG of 16-Aug-2024 16:04, No significant change was found Referred By: Generic ED Physician Electronically Signed By: JULI STORM MD
[2024-09-11 23:11] LABS: MANUAL DIFF FLAG NO
[2024-09-11 23:12] LABS: Basophils Percent Auto 0.7 % (0-2); Eosinophils Absolute Auto 0.1 X10*3/uL (0.0-0.4); Eosinophils Percent Auto 1.3 % (0-4); Hematocrit 39.9 % (37.0-47.0); Hemoglobin 13.2 g/dl (12.0-16.0); Imm Gran Abs Auto 0.01 X10*3/uL (0.00-0.03); Imm Gran Pct Auto 0.2 % (0.0-0.4); Lymphocytes Absolute Auto 1.4 X10*3/uL (1.2-4.9); Lymphocytes Percent Auto 31.4 % (20-40); Mean Corpuscular HGB Conc 33.1 g/dl (31.0-35.0); Mean Corpuscular Hemoglobin 28.8 pg (27.0-33.0); Mean Corpuscular Volume 86.9 fL (80.0-98.0); Mean Platelet Volume 9.6 fL (9.4-12.3); Monocytes Absolute Auto 0.5 X10*3/uL (0.1-1.2); Monocytes Percent Auto 11.8 % (2-11); Neutrophils Absolute Auto 2.5 x10*3/uL (2.0-8.3); Neutrophils Percent Auto 54.6 % (45-73); Platelet Count 229 X10*3/uL (160-400); Red Blood Count 4.59 X10*6/uL (4.20-5.50); Red Cell Distribution Width 13.2 % (11.0-16.0); White Blood Count 4.5 X10*3/uL (4.8-10.8)
[2024-09-11 23:26] LABS: Alanine Aminotransferase 24 U/L (0-31); Albumin Level 4.4 g/dL (3.5-5.0); Alkaline Phosphatase 72 U/L (39-117); Anion Gap 12 (12-20); Aspartate Amino Transferase 27 U/L (5-31); Bilirubin Direct < 0.2 mg/dL (0.0-0.5); Bilirubin Total 0.2 mg/dL (0.0-1.0); Blood Urea Nitrogen 9 mg/dL (9-16); Calcium 9.2 mg/dL (8.4-10.2); Carbon Dioxide 22 mmol/L (22-29); Chloride 108 mmol/L (96-108); Creatinine Clr Calc Pharmacy 80.1; Estimated Glomerular Filt Rate > 60; Glucose Random 137 mg/dL (60-115); Lipase 23 U/L (8-78); Potassium 4.3 mmol/L (3.3-5.1); Sodium 138 mmol/L (135-145); Total Protein 7.6 g/dL (6.5-8.0)
[2024-09-11 23:41] VITALS: BP 190/108; PULSE 82; RESP 16; TEMP 36.4; O2SAT 96
--- NOTE | 2024-09-12 00:03 | PC.NURSE ---
pt reports that she has not been on her prescribed amlodipine for weeks now as she felt like it was making her blood pressure higher, per pt her doctor told her to stop taking and she has not been on any blood pressure medications since.
[2024-09-12 01:03] VITALS: BP 179/101; PULSE 84; RESP 12; O2SAT 99
[2024-09-12 02:34] LABS: Troponin-I High Sensitivity 4.6 ng/L (<3.5-17.0)
[2024-09-12 03:05] VITALS: BP 178/109; PULSE 77; RESP 16; TEMP 36.7; O2SAT 98
--- NOTE | 2024-09-12 03:06 | ED_ITS ---
HPI - Chest Pain General Chief Complaint: Chest Pain Stated Complaint: chest pain, high bp Time Seen by Provider: 09/12/24 01:50 Source: patient and family Limitations: language barrier History of Present Illness ED Provider: Ana Elkins PA-C HPI narrative: 64-year-old female with a history of hypertension presents with chest pain. Patient states she had central discomfort earlier today that lasted 5-10 minutes. She is unable to describe the nature of the pain. Denies diaphoresis, shortness of breath, nausea vomiting. Patient is hypertensive, she stopped taking her amlodipine, she states it causes her chest pain. Patient states she saw her primary care provider, she used to be on 2.5 mg of amlodipine, they placed her on 10 mg, this is when her chest pain began. She states her primary care provider told her to stop taking the amlodipine, there was no exchange of medicine, she is currently not on an anti-hypertensive agent. Related Data Home Medications ?Medication ?Instructions ?Recorded ?Confirmed ascorbic acid (vitamin C) 500 mg mg PO 06/11/23 capsule Previous Rx's ?Medication ?Instructions ?Recorded amlodipine 10 mg tablet (Norvasc) 10 mg PO DAILY #10 tabs 08/09/24 Allergies Allergy/AdvReac Type Severity Reaction Status Date / Time acetaminophen [ACETAMINOPHEN] Allergy Intermediate HTN Verified 09/11/24 23:00 gabapentin [GABAPENTIN] Allergy Intermediate HTN Verified 09/11/24 23:00 pineapple [PINEAPPLE] Allergy Intermediate RASH Verified 09/11/24 23:00 strawberry [STRAWBERRY] Allergy Intermediate RASH Verified 09/11/24 23:00 watermelon [WATERMELON] Allergy Intermediate RASH Verified 09/11/24 23:00 aspirin [ASA] AdvReac Shakiness Verified 09/11/24 23:00 Review of Systems 2 Review of Systems: Yes all other systems are reviewed and are negative Constitutional: Constitutional: Denies fatigue and Denies fever(s) Cardiovascular: Cardiovascular: Reports chest pain and Denies dyspnea Respiratory: Respiratory: Denies cough and Denies dyspnea Gastrointestinal: Gastrointestinal: Denies abdominal pain, Denies nausea and Denies vomiting Endocrine: Endocrine: Denies fatigue PMFSH Past Medical History Attestation statement: The following information was validated with the patient. Medical History Hx of abnormal cervical Pap smear Hx of hypertensive heart disease Surgical History Hx of varicose vein ligation Hx of inguinal hernia repair Hx of tonsillectomy Hx of parathyroidectomy History of loop electrical excision procedure (LEEP) Family History Family History Sister Breast cancer Paternal Aunt Breast cancer Social History Social History Household Members: Children Housing: House Alcohol intake: former Patient Tobacco Use Status: Never used Tobacco Smoked in Last 30 Days: No Use of substances other than those prescribed or required for medical reasons: No Advance Directives: No Advance Directives Information Provided: Yes Do you have a plan to hurt others: No Plan Current occupational status: retired Sexual orientation: Straight/Heterosexual Gender identity: Female Physical Exam 2 Vital Signs: Vital Signs: Last Vital Signs Temp 98.1 F 09/12/24 03:05 Pulse 77 09/12/24 03:05 Resp 16 09/12/24 03:05 BP 178/109 H 09/12/24 03:05 Pulse Ox 98 09/12/24 03:05 O2 Del Method Room Air 09/12/24 03:05 BMI result Body Mass Index 26.7 Const: Other: Alert well-appearing Orientation/consciousness: patient oriented x3 Resp: Effort & Inspection: normal respiratory effort Cardio: Other: Normal peripheral perfusion Skin: Other: Warm dry no rash Neuro: General: patient oriented x3, gait normal, no focal motor deficits and CN's II-XI intact bilaterally Psych: Other: Cooperative Medical Decision Making Medical Decision Making MDM Narrative: 64-year-old female with a history of hypertension presents with chest pain. Patient states she had central discomfort earlier today that lasted 5-10 minutes. She is unable to describe the nature of the pain. Denies diaphoresis, shortness of breath, nausea vomiting. Patient is hypertensive, she stopped taking her amlodipine, she states it causes her chest pain. Patient states she saw her primary care provider, she used to be on 2.5 mg of amlodipine, they placed her on 10 mg, this is when her chest pain began. She states her primary care provider told her to stop taking the amlodipine, there was no exchange of medicine, she is currently not on an anti-hypertensive agent. Problem: Age, hypertension History: Per patient I have considered the following differential diagnoses: ACS, atypical chest pain, pneumonia, costochondritis, chest wall strain Plan: Screening labs including a cardiac enzymes EKG and chest x-ray were obtained, her assessment is negative. This is not ACS, she had fleeting discomfort that she can not describe. She has not had recent cough or cold symptoms, no fever to suggest pneumonia or costochondritis. She has no mechanism of injury to suggest chest wall strain. I have independently reviewed the following tests: Labs: No leukocytosis, not anemic, no electrolyte abnormality, troponin x2 flat EKG: Normal sinus rhythm, rate 89, no ischemic changes no ectopy, QTC 420 Chest x-ray:Findings: Mild left lower lobe atelectasis. No significant pleural effusion or pneumothorax. Prominent cardiac silhouette. No acute fracture. IMPRESSION: Mild left lower lobe atelectasis. Lab Data 09/11/24 23:04 09/11/24 23:04 Labs: Lab Results 09/11/24 09/12/24 Range/Units 23:04 02:10 WBC 4.5 L (4.8-10.8) X10*3/uL RBC 4.59 (4.20-5.50) X10*6/uL Hgb 13.2 (12.0-16.0) g/dl Hct 39.9 (37.0-47.0) % MCV 86.9 (80.0-98.0) fL MCH 28.8 (27.0-33.0) pg MCHC 33.1 (31.0-35.0) g/dl RDW 13.2 (11.0-16.0) % Plt Count 229 (160-400) X10*3/uL MPV 9.6 (9.4-12.3) fL Immature Gran % (Auto) 0.2 (0.0-0.4) % Neut % (Auto) 54.6 (45-73) % Lymph % (Auto) 31.4 (20-40) % [place] % (Auto) 11.8 H (2-11) % Eos % (Auto) 1.3 (0-4) % Baso % (Auto) 0.7 (0-2) % Lymph # (Auto) 1.4 (1.2-4.9) X10*3/uL [place] # (Auto) 0.5 (0.1-1.2) X10*3/uL Eos # (Auto) 0.1 (0.0-0.4) X10*3/uL Baso # (Auto) 0.0 (0.0-0.2) X10*3/uL Abs Immat Gran (auto) 0.01 (0.00-0.03) X10*3/uL Absolute Neuts (auto) 2.5 (2.0-8.3) x10*3/uL Absolute Nucleated RBC 0.000 (0.0-0.012) X10*3/uL Nucleated RBC % (auto) 0.0 (0.0-0.2) /100WBC Sodium 138 (135-145) mmol/L Potassium 4.3 (3.3-5.1) mmol/L Chloride 108 (96-108) mmol/L Carbon Dioxide 22 (22-29) mmol/L Anion Gap 12 (12-20) BUN 9 (9-16) mg/dL Creatinine 0.60 (0.5-1.4) mg/dL Estim Creat Clear Calc 80.1 Estimated GFR > 60 Random Glucose 137 H (60-115) mg/dL Calcium 9.2 (8.4-10.2) mg/dL Total Bilirubin 0.2 (0.0-1.0) mg/dL Direct Bilirubin < 0.2 (0.0-0.5) mg/dL AST 27 (5-31) U/L ALT 24 (0-31) U/L Alkaline Phosphatase 72 (39-117) U/L Troponin I High Sens 5.0 D 4.6 (<3.5-17.0) ng/L Total Protein 7.6 (6.5-8.0) g/dL Albumin 4.4 (3.5-5.0) g/dL Lipase 23 (8-78) U/L Discharge Plan Discharge Clinical Impression: Atypical chest pain Patient Disposition: Home, Self-Care Instructions: Noncardiac Chest Pain (ED) Additional Instructions: All of your screening labs including 2 cardiac enzymes were normal. There were no concerning changes on the EKG in the chest x-ray is clear. Your chest pain is not related to your heart. In addition, you need to take your blood pressure medication as directed. At this time, you have 10 mg amlodipine. We are suggesting that you take half a pill every day in the morning, to help manage your blood pressure. You need to follow up with your primary care provider for further discussion about your blood pressure medication regimen. Prescriptions: No Action amlodipine [Norvasc] 10 mg tablet 10 mg PO DAILY Qty: 10 0RF ascorbic acid (vitamin C) 500 mg capsule PO Print Language: Anguillan
[2024-09-12 03:15] VITALS: BP 178/109; PULSE 77; RESP 16; TEMP 36.7; O2SAT 98
== END 2024-09-12 03:22 | disposition home or self-care (01) ==
PROVIDERS: Physician Assistant Medical; Emergency Provider Emergency Medicine; PCP Family Medicine
DX: R07.9 Chest pain, unspecified (principal); I10 Essential (primary) hypertension
CPT/HCPCS: 36415; 71045; 80048; 80076; 83690; 84484; 85025; 93005; 99283; 99284

== ENCOUNTER → 2024-09-11 23:01 | Outpatient (BNV) | payer OTHER, SELFPAY | PROVIDERS: Emergency Provider Emergency Medicine; PCP Family Medicine; Visit Provider Internal Medicine Cardiovascular Disease | DX: R07.9 Chest pain, unspecified (principal) | CPT/HCPCS: 93010 ==

== ENCOUNTER → 2024-09-11 23:01 | Outpatient (BNV) | payer OTHER, SELFPAY | PROVIDERS: PCP Family Medicine; Visit Provider Radiology Diagnostic Radiology | DX: R07.9 Chest pain, unspecified (principal); I10 Essential (primary) hypertension; J98.11 Atelectasis | CPT/HCPCS: 71045 ==

== ENCOUNTER 2024-11-11 08:14 | Outpatient (AMB) | payer OTHER, SELFPAY ==
--- OUTSIDE RECORDS SUMMARY | 2024-11-11 08:19 | XMS_ITS | Encounter Summary ---
Author Organization [employer] Address 75 [facility] 7t [place] [address] Care Team Providers Care Managed Security Sales Consultant Name Role Phone Ashanti Davila MD Primary Care Provider +- [phone] Fartun Guidry PharmD Unavailable Ele Meza Unavailable Reason for Visit * Reason Onset Date Comments Nurse Triage 11/07/2023 Encounter Details Date Type Department Care Team (Late st Contact Info) Description 11/07/2023 Telephone [facility] MEDICINE [address] [place] [address] Ashanti Davila MD [address] [place], [place] [phone] Nurse Triage Social History Tobacco Use Types [...] EDT Unable to reach patient as a Italian speaker with [employer] Hand. Team tasked to follow with patient. Protocol [...] accepted this outcome Please contact pt at [phone] (warp doffer) documented in this encounter Plan of Treatment Upcoming Encounters Date Type Department Care Team (Late st Contact Info) Description 11/19/2024 11:00 AM EDT Office Visit [facility] ADULT DENTAL [address] [place], [place] [phone] Casi, Vonda [address] [place] [address] 01/07/2025 11:00 AM EDT Office Visit [facility] MEDICINE [address] [place] [address] Ashanti Davila MD [address] [place] [address] documented as of this encounter Visit Diagnoses Not on filedocumented in this encounter Care Teams Managed Security Sales Consultant Relationship Specialty Start Date End Date Ashanti Davila MD [address] [place] [address] PCP - General Family Medicine 06/16/18 Fartun Guidry, MahamedD [address] [place] [address] Pharmacist Internal Medicine 02/05/24 Ele Meza [address] [place] [address] Gynecology 07/08/24 documented as of this encounter
--- NOTE | 2024-11-11 08:21 | A.OFFVIS_ITS ---
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 Intake Note: Last mammo 04/2024 Hazmat Cdl Driver Required: Yes Hazmat Cdl Driver Language: Locker Operator Name: Britni [id number] Information Interpreted: non-clinical & clinical Electrical & Instrumentation Supervisor: Electrical & Instrumentation Supervisor Present (Nelli) Allergies acetaminophen [ACETAMINOPHEN] Allergy (Intermediate, Verified 11/11/24 08:23) HTN gabapentin [GABAPENTIN] Allergy (Intermediate, Verified 11/11/24 08:23) HTN pineapple [PINEAPPLE] Allergy (Intermediate, Verified 11/11/24 08:23) RASH strawberry [STRAWBERRY] Allergy (Intermediate, Verified 11/11/24 08:23) RASH watermelon [WATERMELON] Allergy (Intermediate, Verified 11/11/24 08:23) RASH aspirin [ASA] Adverse Reaction (Verified 11/11/24 08:23) Shakiness HPI Comments Details: 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 She is doing well with no makeup instructor concerns. Currently not sexually active. Denies any vaginal dryness or irritation. Attempting to eat a healthy diet and stays active with exercise. Last pap smear; 2020, negative. Last mammogram; UTD at [facility], no records, due 04/2025 per pt. Denies any family history of ovarian or colon cancer. FH breast cancer. [facility] Medical History Hx of abnormal cervical Pap smear Hx of hypertensive heart disease Surgical History Hx of varicose vein ligation Hx of inguinal hernia repair Hx of tonsillectomy Hx of parathyroidectomy History of loop electrical excision procedure (LEEP) Family History Sister Breast cancer Paternal Aunt Breast cancer Social History Household Members: Children Housing: House Alcohol intake: former Patient Tobacco Use Status: Never used Tobacco Current occupational status: retired Sexual orientation: Straight/Heterosexual Gender identity: Female Female Reproductive History Menstrual Age of Menarche: 14 Total pregnancies: 8 Full term: 8 Number of Living Children: 6 Date of last pap smear: 04/03/21 (neg pap and hpv) History of abnormal pap smear: Yes (hx leep maryana 2) Review of Systems Const All systems reviewed & are unremarkable except as noted in HPI and below Reports as per HPI Eyes Reports no additional complaints ENT Reports no additional complaints Card Reports no additional complaints Resp Reports no additional complaints GI Reports as per HPI and Reports no additional complaints Reports as per HPI Musc Reports no additional complaints Skin/Breast Reports as per HPI Neuro Reports no additional complaints Psych Reports no additional complaints Endo Reports no additional complaints Alfonzo/Lymph Reports no additional complaints Aller/Immun Reports no additional complaints Physical Exam Vital Signs: Last Vital Signs BP 140/82 H 11/11/24 08:23 BMI result Body Mass Index 25.5 Const General: cooperative, healthy appearing, no acute distress, well developed and alert Orientation/consciousness: patient oriented x3 HEENT Head: Yes normal to inspection Eyes General: appearance normal, both eyes and all related structures Neck Neck: Yes normal visual inspection Thyroid: Thyroid normal Chest Chest palpation & inspection: normal inspection of the chest and other (no puckering, dimpling, peau de orange, retraction, discharge, masses) Breast/axilla inspection: normal inspection of the breasts Breast/axilla palpation: normal palpation of the breasts Resp Effort & Inspection: normal respiratory effort GI Inspection: Yes normal to inspection Palpation (GI): Soft to palpation Rectal Exam - Female: deferred General: Yes bladder normal to palpation External Female Exam: normal external appearance and normal appearance of the urethra Speculum Exam - Vagina: normal appearance of the vagina, normal palpation, normal vaginal discharge and vagina atrophic (moderate) Speculum Exam - Cervix: normal appearance of the cervix, normal palpation and Other cervical findings present (Moderate atrophy, post LEEP appearance, bled slightly with Pap) Bimanual exam- vagina & uterus: normal bimanual exam, normal palpation, uterine size normal, bladder normal to palpation, normal palpation and non-tender Bimanual Exam- Adnexa, other: no masses Skin General skin exam: no rashes or lesions noted Rashes: no rashes Neuro General: patient oriented x3 Cognition (Neuro): normal cognition Extrem General: Yes normal to inspection Psych Attitude: cooperative Thought process: Normal thought process present Assessment & Plan Assessment & Plan (1) Well woman exam with routine gynecological exam: Code(s): Z01.419 - Encounter for gynecological examination (general) (routine) without abnormal findings Category: Medical Plan: Discussed: Current recommendations for pap smears per ASCCP guidelines. Breast awareness, periodic self breast exams and yearly mammogram. Maintain a healthy lifestyle, well balanced diet including Calcium 1,200 mg and Vitamin D 600 IU daily, and routine exercise. Contact the office with any postmenopausal bleeding. Patient verbalizes understanding and agrees to the plan of care. She was given opportunity to ask questions and all questions were answered to the best of my ability. RTO in 1 year for annual makeup instructor exam. This note is constructed using voice recognition software. While every effort has been made to ensure accuracy, acls specialist errors may have been included. (2) Hx of abnormal cervical Pap smear: Code(s): Z87.42 - Personal history of other diseases of the female genital tract Category: Medical Plan: Pap obtained today, await results for plan of care. Coding Level of Care Code Est Pt Prev Care >65y(07309) Diagnoses Well woman exam with routine gynecological exam Z01.419 Hx of abnormal cervical Pap smear Z87.42
[2024-11-11 08:23] VITALS: BP 140/82; BMI 25.5
== END 2024-11-11 09:23 | disposition home or self-care (01) ==
LOC: HO.HWS 08:14
PROVIDERS: PCP Family Medicine; Visit Provider Advanced Practice Midwife
DX: Z01.419 Encounter for gynecological examination (general) (routine) without abnormal findings (principal); Z87.42 Personal history of other diseases of the female genital tract
CPT/HCPCS: 99397; 99459

== ENCOUNTER 2024-11-11 08:14 | Outpatient (REF) | payer OTHER, SELFPAY ==
[2024-11-18 14:32] LABS: HPV Genotype 16 Negative (Negative); HPV Genotype 18 Negative (Negative); HPV High Risk Negative (Negative)
== END 2024-11-11 08:15 | disposition home or self-care (01) ==
LOC: HO.LNP 08:14
PROVIDERS: PCP Family Medicine; Visit Provider Advanced Practice Midwife
DX: Z01.419 Encounter for gynecological examination (general) (routine) without abnormal findings (principal); Z87.42 Personal history of other diseases of the female genital tract
CPT/HCPCS: 87626; 88175; 99397; 99459

== ENCOUNTER 2025-01-25 09:08 | Outpatient (REF) | payer OTHER, SELFPAY ==
--- OUTSIDE RECORDS SUMMARY | 2025-01-25 09:42 | XMS_ITS | Clinical Summary ---
Author Organization [facility] Address [address] [place], [place] [id number] Phone Care Team Providers Care Family Life Counselor Name Role Phone Unknown, Unknown Primary Care Provider Brendan dupont Social History Tobacco Use Types Packs/Day Years Used Date Smoking Tobacco: Never Assessed Education Answer Date Recorded Are you interested in more education? Not on ashley e 10/11/2022 Are you concerned about learning? Not on file 10/11/2022 No 10/11/2022 No 10/11/2022 Digital Access Answer Date Recorded No 11/12/2022 No 11/12/2022 No 11/12/2022 Reliable internet access at home? Not on file 11/12/2022 Device with a working camera? Not on file Sex and Gender Information Value Date Recorded Sex Assigned at Not on file Legal Sex Male 12:22 PM EDT Gender Identity Not on file Sexual Orientation Not on file Plan of Treatment Not on file Medical Devices Not on file [place] [place] [address] [employer] Care Teams Family Life Counselor Relationship Specialty Start Date End Date Unknown, Unknown, PCP - General 03/03/18 Additional Source Comments The information contained in this document represents components of the legal health record. It is not the complete legal health record.[facility]
--- OUTSIDE RECORDS SUMMARY | 2025-01-25 09:42 | XMS_ITS | Clinical Summary ---
Author Organization [facility], Address [address] [place] [address] [place] [address] Phone Care Team Providers Care Glassware Maker Name Role Phone Ashanti Davila MD Primary [...] 75 07/14/2019 9:31 AM EST Temperature 36.8 C (98.2 F) 07/14/2019 9:31 AM EST Respiratory Rate - - Oxygen Saturation - [...] Colorectal Cancer Screening: Sigmoidoscopy 01/10/2008 Pneumococcal Vaccine: 50+ Ye ars (1 of 1 - PCV) 2009 Influenza Vaccine (#1) 2025 Hepatitis B Vaccine Aged Out No longe r eligible based on patient's age to complete this topic Insurance [address] [place] [id number] Care Teams Glassware Maker Relationship Specialty Start Date End Date Giovanni, Ashanti Orta MD PCP - General Family Medicine 06/01/19
--- OUTSIDE RECORDS SUMMARY | 2025-01-25 09:43 | XMS_ITS | Clinical Summary ---
Author Organization [facility] Address [address] [place] [address] Phone Care Team Providers Care Storage Receipt Poster Name Role Phone Physician, Pcp Unknown Primary Care Provider Kristina vailable Allergies No known active allergies Social History Tobacco Use Types Packs/Day Years [...] 85 07/28/2024 7:27 PM EST Temperature 36.9 C (98.4 F) 07/28/2024 7:27 PM EST Respiratory Rate 16 07/28/2024 7:27 PM EST [...] Health Screening 05/14/2022 Falls Risk Assessment 01/10/2024 COVID-19 Vaccine ( - 2023-2 5 season) 2024 Depression Screening 06/16/2024 Influenza Vaccine (#1) 2025 9, 04/19/2003 Hypertension/CHF/CAD Annual BMP Blood Test 07/28/2025 07/28/2024, 07/08/2024 DTaP,Tdap,and Td Vaccines (3 - Td or Tdap) 03/04/2028 03/04/2018, 11/24/2003 Cholesterol Screening (Lipid Panel) 07/08/2029 07/08/2024 RSV Immunization Adult Patients (1 - 1-dose 75+ series) 2034 Hepatitis [...] age to complete this topic Meningococcal B Vaccine Aged Out No l onger eligible based on patient's age to complete this topic RSV Immunization Patients Under 20 months Aged Out No longer eligible b ased on patient's age to complete this topic Varicella Vaccines Aged Out No longer eligible based on patient's age to complete this topic Procedures Procedure Name Priority Date/Time Associated Diagnosis Comments COMPREHENSIVE METABOLIC PANEL STAT 07/28/2024 3:00 PM EST from Last 3 Months or Most Recently Relevant to Health Maintenance Results * Comprehensive metabolic panel (07/28/2024 3:00 PM EST) Sodium 137 133 - 145 mmol/L LAB CHEMISTRY METHOD 07/28/2024 4:53 PM EST [facility] Potassium 4.1 3.5 - 5.5 mmol/L LAB CHEMISTRY METHOD 07/28/2024 4:53 PM EST [facility] Chloride 107 96 - 110 mmol/L LAB CHEMISTRY METHOD 07/28/2024 4:53 PM [facility] CO2 26 21 - 32 mmol/L LAB CHEMISTRY METHOD 07/28/2024 4:53 PM [facility] Anion Gap 4 3 - 11 LAB CHEMISTRY METHOD 07/28/2024 4:53 PM [facility] Glucose 87 70 - 100 mg/dL LAB CHEMISTRY METHOD 07/28/2024 4:53 PM [facility] BUN 7 5 - 25 mg/dL LAB CHEMISTRY METHOD 07/28/2024 4:53 PM [facility] Creatinine 0.55 0.50 - 1.10 mg/dL LAB CHEMISTRY METHOD 07/28/2024 4:53 PM [facility] eGFR 102 >=60 mL/min/1. 73m2 LAB CHEMISTRY METHOD 07/28/2024 4:53 PM [facility] Comment:Calculation based on the Chronic Kidney Disease Epidemiology Collaboration (CKD-EPI) equation refit without adjustment for race. BUN/Creatinine Ratio 12.7 LAB CHEMISTRY METHOD 07/28/2024 4:53 PM [facility] Calcium 9.9 8.5 - 10.5 mg/dL LAB CHEMISTRY METHOD 07/28/2024 4:53 PM [facility] AST (SGOT) 18 10 - 42 unit/L LAB CHEMISTRY METHOD 07/28/2024 4:53 PM [facility] ALT (SGPT) 23 10 - 60 unit/L LAB CHEMISTRY METHOD 07/28/2024 4:53 PM [facility] Alkaline Phosphatase 66 42 - 121 unit/L LAB CHEMISTRY METHOD 07/28/2024 4:53 PM [facility] Total Protein 7.7 6.0 - 8.0 g/dL LAB CHEMISTRY METHOD 07/28/2024 4:53 PM [facility] Albumin 4.1 3.2 - 5.0 g/dL LAB CHEMISTRY METHOD 07/28/2024 4:53 PM EST [facility] Total Bilirubin 0.5 0.0 - 1.4 mg/dL LAB CHEMISTRY METHOD 07/28/2024 4:53 PM EST [facility] Blood Venous blood specimen / Unknown Venipuncture / Unknown 07/28/2024 3:00 PM EST 07/28/2024 4:15 PM EST us Jerad B Kristofer CASTLE LAB BLOOD ORDERABLES Final Resu lt [facility] [address] [place] [address], from Last 3 Months or Most Recently Relevant to Health Maintenance [place] [address] [place] [address] MEDICARE Member Subscriber Plan / Payer (Ef fective 2019-Present) Name:Kareem Traore Relation to Subscriber:Self Name:Kareem Traore Payer ID:[id number] Group ID:[id number] Type:Not on file Address: [place] [address] [address] [id number] Care Teams Storage Receipt Poster Relationship Specialty Start Date End Date Physician, Pcp Unknown PCP - General 07/28/24
[2025-01-25 12:02] LABS: Microalbum/Creatinine Ratio Ur 11.5 ug/mg cr (<30)
[2025-01-25 12:35] LABS: Alanine Aminotransferase 29 U/L (0-31); Albumin Level 4.7 g/dL (3.5-5.0); Alkaline Phosphatase 67 U/L (39-117); Anion Gap 14 (12-20); Aspartate Amino Transferase 25 U/L (5-31); Blood Urea Nitrogen 6 mg/dL (9-16); Calcium 9.3 mg/dL (8.4-10.2); Carbon Dioxide 27 mmol/L (22-29); Chloride 101 mmol/L (96-108); Cholesterol 229 mg/dL (<200); Estimated Glomerular Filt Rate > 60; HDL Cholesterol 75 mg/dL (>40); Potassium 3.8 mmol/L (3.3-5.1); Sodium 138 mmol/L (135-145); Total Protein 7.4 g/dL (6.5-8.0); Triglycerides 110 mg/dL (<150)
== END 2025-01-25 09:09 | disposition home or self-care (01) ==
LOC: HO.HHCL 09:08
PROVIDERS: PCP Family Medicine; Visit Provider Family Medicine
DX: I10 Essential (primary) hypertension (principal); E78.5 Hyperlipidemia, unspecified
CPT/HCPCS: 36415; 80048; 80061; 80076; 82043; 82570

== ENCOUNTER 2025-03-10 12:29 | Outpatient (AMB) | payer OTHER, SELFPAY ==
--- OUTSIDE RECORDS SUMMARY | 2025-03-08 09:30 | XMS_ITS | Encounter Summary ---
Author Organization [facility] [facility] Address [address] [facility] [address] [place] [address] Care Team Providers Care Airline Ticket Agent Name Role Phone Ashanti Davila MD Primary Care Provider + [phone] Fartun Guidry PharmD Unavailable Ele Meza Unavailable Marshall De La Paz MD Unavailable Reason for Visit * Reason Comments root canal On tooth #21 Encounter Details Date Type Department Care Team (Late st Contact Info) Description 03/08/2025 9:30 AM EDT Office Visit [facility] [address] [place] [address] More Mccray DDS [address] [place] [address] Social History Tobacco Use Types Packs/Day Years [...] Sign Reading Time Taken Comments Blood Pressure 180/110 03/08/2025 9:54 AM EDT Pulse - - Temperature - - Respiratory Rate - - Oxygen Saturation - - Inhaled Oxygen Concentration - - Weight - - Height - - Body Mass Index - - documented in this encounter Progress Notes * More Mccray DDS - 03/08/2025 9:30 AM EDT Kareem Traore in office for RCT, however BP readings are very high. Pt with history of uncontrolled BP -not taking the medication due to multiple adverse side effects. Readings today 200/112; 186/118. Medical clearance sent to PCP to indicate when dental procedures could be performed. NV: RCT documented in this encounter Plan of Treatment Upcoming Encounters Date Type Department Care Team (Late st Contact Info) Description 05/23/2025 8:45 AM EST Office Visit [facility] [address] [place] [address] Arun Lancearis [address] [place] [address] documented as of this encounter Procedures Procedure Name Priority Date/Time Associated Diagnosis Comments NO CHARGE PROCEDURE Routine 03/08/2025 9:30 AM EDT documented in this encounter Visit Diagnoses Not on filedocumented in this encounter Additional Health Concerns Assessment Noted Time PHQ-9 Depression Total Score: 0 07/08/19 25 10:38 AM EST documented as of this encounter Care Teams Airline Ticket Agent Relationship Specialty Start Date End Date Ashanti Davila MD [address] [place] [address] PCP - General Family Medicine 06/16/18 Fartun Guidry PharmD [address] [place] [address] Pharmacist Internal Medicine 02/05/24 Ele Meza [address] [place] [id number] Gynecology 07/08/24 Marshall De La Paz MD [facility] [address] [place] [address] Cardiology 02/17/25 documented as of this encounter
--- NOTE | 2025-03-10 12:41 | MHC.OFFVIS ---
Vital Signs 03/10/25 12:42 Height 5 ft 1 in Weight 139 lb BMI 26.3 BP 148/80 H Blood Pressure Location Rt brachial Position Sitting Intake Visit Reasons: Repeat pap/30 min Intake Note: repeat Pap News Production Assistant Services: News Production Assistant Present News Production Assistant Name: voice Box Information Interpreted: non-clinical & clinical Combination Machine Tool Operator: Combination Machine Tool Operator Present (Wendy) Accompanied by: Self / Same As Patient Allergies acetaminophen (ACETAMINOPHEN) Allergy (Intermediate, Verified 03/10/25 12:43) HTN gabapentin (GABAPENTIN) Allergy (Intermediate, Verified 03/10/25 12:43) HTN pineapple (PINEAPPLE) Allergy (Intermediate, Verified 03/10/25 12:43) RASH strawberry (STRAWBERRY) Allergy (Intermediate, Verified 03/10/25 12:43) RASH watermelon (WATERMELON) Allergy (Intermediate, Verified 03/10/25 12:43) RASH aspirin (ASA) Adverse Reaction (Verified 03/10/25 12:43) Shakiness Medication List - Last Reconciled 03/10/25 by Kirstin Quinn LPN Is last menstrual period known: No Do you need a note to return to daycare/school/sports/work: No HPI Comments Details: Patient is here today for repeat Pap smear, prior Pap smear was unsatisfactory due to obscuring lubricant. History of abnormal Paps. [facility] Medical History (Updated 03/10/25 @ 13:18 by Ele Meza CNM) Hx of abnormal cervical Pap smear Hx of hypertensive heart disease Surgical History Hx of varicose vein ligation Hx of inguinal hernia repair Hx of tonsillectomy Hx of parathyroidectomy History of loop electrical excision procedure (LEEP) Family History Sister Breast cancer Paternal Aunt Breast cancer Social History Household Members: Children Housing: House Alcohol intake: former Patient Tobacco Use Status: Never used Tobacco Current occupational status: retired Sexual orientation: Straight/Heterosexual Gender identity: Female Female Reproductive History Menstrual Age of Menarche: 14 Review of Systems Const All systems reviewed & are unremarkable except as noted in HPI and below Physical Exam Vital Signs: BMI result Body Mass Index 26.3 Const General: cooperative, healthy appearing and no acute distress Orientation/consciousness: patient oriented x3 GI Inspection: Yes normal to inspection Palpation (GI): Soft to palpation and Other GI palpation findings present (Nontender) Rectal Exam - Female: visual inspection normal General: Yes bladder normal to palpation External Female Exam: normal appearance of the urethra Speculum Exam - Vagina: normal appearance of the vagina, normal palpation, normal vaginal discharge and vagina atrophic Speculum Exam - Cervix: normal appearance of the cervix, normal palpation and Other cervical findings present (bled slightly w/pap) Bimanual exam- vagina & uterus: normal bimanual exam, normal palpation, uterine size normal, bladder normal to palpation, normal palpation, uterine shape normal and non-tender Bimanual Exam- Adnexa, other: normal adnexae Neuro General: patient oriented x3 Assessment & Plan Assessment & Plan (1) Unsatisfactory cervical Papanicolaou smear: Code(s): R87.615 - Unsatisfactory cytologic smear of cervix Plan Pap obtained today using water as a lubricant. Await results for final plan of care. Advised to call if there is any concerns including postmenopausal bleeding a outside the range for Pap today. The patient expressed understanding and agreement with the plan of care. All of her questions and concerns were addressed to the best of my ability. Annual exam scheduled November 2025. This note is constructed using voice recognition software. While every effort has been made to ensure accuracy, wellness nurse rn errors may have been included. Orders: Orders HPV High risk Today Z87.42 - Personal history of other diseases of the female genital tract Pap Smear Today Z87.42 - Personal history of other diseases of the female genital tract Coding Level of Care Code Est Pt Level 3 (44004) Diagnoses Unsatisfactory cervical Papanicolaou smear R87.615
[2025-03-10 12:42] VITALS: BP 148/80; BMI 26.3
--- OUTSIDE RECORDS SUMMARY | 2025-03-10 17:19 | XMS_ITS | Encounter Summary ---
Author Organization [facility] Address [address] [facility] [address] [place] [address] Phone Care Team Providers Care Rn School Name Role Phone Unknown, Unknown Primary Care Provider Brendan dupont Encounter Details Date Type Department Care Team (Late st Contact Info) Description 03/04/2018 Ancillary Orders [facility] [address] [place] [address] [place] [address] Jaden Davey DO [address] [place] [address] Palpitations Social History Tobacco Use Types Packs/Day Years Used Date Smoking Tobacco: Never Assessed Sex and Gender Information Value Date Recorded Sex Assigned at Not on file Legal Sex Male 12:22 PM EDT Gender Identity Not on file Sexual Orientation Not on file documented as of this encounter Plan of Treatment Not on file documented as of this encounter Results * Holter Monitor 24 Hours (03/04/2018 11:32 AM EDT) Anatomical Region Laterality Modality Heart Other Narrative 03/04/2018 12:36 PM EDT 34 monitor: Baseline rhythm is sinus with a minimum heart rate of 47 maximum 119 average 74 bpm. Rare PACs and PVCs present. Patient event markers during sinus rhythm. Impression: Normal 24 hour monitor. Patient event markers during sinus rhythm. Jaden Davey DO [facility] ORDERABLE S Final Result documented in this encounter Visit Diagnoses Diagnosis Palpitations Palpitations documented in this encounter Care Teams Rn School Relationship Specialty Start Date End Date Unknown, Unknown, PCP - General 03/03/18 documented as of this encounter Additional Source Comments The information contained in this document represents components of the legal health record. It is not the complete legal health record.[facility]
--- OUTSIDE RECORDS SUMMARY | 2025-03-10 17:19 | XMS_ITS | Clinical Summary ---
Author Organization [facility] Address [address] [place] [address] Phone Care Team Providers Care String Studies Director Name Role Phone Physician, Pcp Unknown Primary [...] Health Screening 05/14/2022 Falls Risk Assessment 01/10/2024 Depression Screening 06/16/2024 COVID-19 Vaccine ( - 2024-2 5 season) 2025 Influenza Vaccine (#1) 2025 9, 04/19/2003 Hypertension/CHF/CAD [...] PM EST [facility] Potassium 4.1 3.5 - 5.5 mmol/L LAB CHEMISTRY METHOD 07/28/2024 4:53 PM EST [facility] Chloride 107 96 - 110 mmol/L LAB CHEMISTRY METHOD 07/28/2024 4:53 PM [facility] CO2 26 21 - 32 mmol/L LAB CHEMISTRY METHOD 07/28/2024 4:53 PM [facility] Anion Gap 4 3 - 11 LAB CHEMISTRY METHOD 07/28/2024 4:53 PM [facility] Glucose 87 70 - 100 mg/dL LAB CHEMISTRY METHOD 07/28/2024 4:53 PM [facility] BUN 7 5 - 25 mg/dL LAB CHEMISTRY METHOD 07/28/2024 4:53 PM [facility] Creatinine 0.55 0.50 - 1.10 mg/dL LAB CHEMISTRY METHOD 07/28/2024 4:53 PM [facility] eGFR 102 >=60 mL/min/1. 73m2 LAB CHEMISTRY METHOD 07/28/2024 4:53 PM [facility] Comment:Calculation based on the Chronic Kidney Disease Epidemiology Collaboration (CKD-EPI) equation refit without adjustment for race. BUN/Creatinine Ratio 12.7 LAB CHEMISTRY METHOD 07/28/2024 4:53 PM [facility] Calcium 9.9 8.5 - 10.5 mg/dL LAB CHEMISTRY METHOD 07/28/2024 4:53 PM [facility] AST (SGOT) 18 10 - 42 unit/L LAB CHEMISTRY METHOD 07/28/2024 4:53 PM [facility] ALT (SGPT) 23 10 - 60 unit/L LAB CHEMISTRY METHOD 07/28/2024 4:53 PM [facility] Alkaline Phosphatase 66 42 - 121 unit/L LAB CHEMISTRY METHOD 07/28/2024 4:53 PM [facility] Total Protein 7.7 6.0 - 8.0 g/dL LAB CHEMISTRY METHOD 07/28/2024 4:53 PM [facility] Albumin 4.1 3.2 - 5.0 g/dL LAB CHEMISTRY METHOD 07/28/2024 4:53 PM EST [facility] Total Bilirubin 0.5 0.0 - 1.4 mg/dL LAB CHEMISTRY METHOD 07/28/2024 4:53 PM EST [facility] Blood Venous blood specimen / Unknown Venipuncture / Unknown 07/28/2024 3:00 PM EST 07/28/2024 4:15 PM EST us Jerad B Kristofer CASTLE LAB BLOOD ORDERABLES Final Resu lt [facility] [address] [place] [address], from Last 3 Months or Most Recently Relevant to Health Maintenance [place] [address] MEDICARE Member Subscriber Plan / Payer (Ef fective 2019-Present) Name:Kareem Traore Relation to Subscriber:Self Name:Kareem Traore Payer ID:[id number] Group ID:[id number] Type:Not on file Address: [place] [address] [address] [phone] Care Teams String Studies Director Relationship Specialty Start Date End Date Physician, Pcp Unknown PCP - General 07/28/24
--- OUTSIDE RECORDS SUMMARY | 2025-03-10 17:19 | XMS_ITS | Encounter Summary ---
Author Organization [employer] Address [address] [facility] 7t [place] [address] Care Team Providers Care Reception Centre Manager Name Role Phone Ashanti Davila MD Primary Care Provider +- [phone] Fartun Guidry PharmD Unavailable Ele Meza Unavailable Marshall De La Paz MD Unavailable Reason for Visit * Reason Onset Date Comments Nurse Triage 11/07/2023 Encounter Details Date Type Department Care Team (Late st Contact Info) Description 11/07/2023 Telephone [facility] [address] [place], [place] [phone] Ashanti Davila MD [address] [place], [place] [phone] Nurse Triage Social History Tobacco Use Types [...] EDT Unable to reach patient as a [place] speaker with [employer]. Team tasked to follow with patient. Protocol [...] accepted this outcome Please contact pt at [phone] (coater) documented in this encounter Plan of Treatment Upcoming Encounters Date Type Department Care Team (Late st Contact Info) Description 05/23/2025 8:45 AM EST Office Visit [facility] [address] [place] [address] Vonda Lance [address] [place] [address] documented as of this encounter Visit Diagnoses Not on filedocumented in this encounter Care Teams Reception Centre Manager Relationship Specialty Start Date End Date Ashanti Davila MD [address] [place] [address] PCP - General Family Medicine 06/16/18 Fartun Guidry, MahamedD [address] [place] [address] Pharmacist Internal Medicine 02/05/24 Ele Meza [address] [address] Gynecology 07/08/24 Marshall De La Paz MD [facility] [address] [place] [address] Cardiology 02/17/25 documented as of this encounter
--- OUTSIDE RECORDS SUMMARY | 2025-03-10 17:19 | XMS_ITS | Encounter Summary ---
Author Organization [employer] Address [address] [facility] 7t [place] [address] Care Team Providers Care Hyperion Essbase Developer Name Role Phone Ashanti Davila MD Primary Care Provider +- [phone] Fartun Guidry PharmD Unavailable Ele Meza Unavailable Marshall De La Paz MD Unavailable Reason for Visit * Reason Onset Date Comments Paperwork/Forms 03/09/2025 Encounter Details Date Type Department Care Team (Late st Contact Info) Description 03/09/2025 Telephone [facility] [address] [place], [place] [phone] Ashanti Davila MD [address] [place], [place] [phone] Paperwork/Forms Social History Tobacco Use Types Packs/Day Years [...] encounter Miscellaneous Notes * Telephone Encounter - Tiffanie Rios RN - 03/09/2025 2:37 PM EDT Received dental clearance form for PCP review, placed on desk for signature. documented in this encounter Plan of Treatment Upcoming Encounters Date Type Department Care Team (Late st Contact Info) Description 05/23/2025 8:45 AM EST Office Visit [facility] [address] [place] [address] Casi, Vonda [address] [place] [address] documented as of this encounter Visit Diagnoses Not on filedocumented in this encounter Additional Health Concerns Assessment Noted Time PHQ-9 Depression Total Score: 0 07/08/19 25 10:38 AM EST documented as of this encounter Care Teams [employer] Essbase Developer Relationship Specialty Start Date End Date Ashanti Davila MD [address] [place] [address] PCP - General Family Medicine 06/16/18 Fartun Guidry, MahamedD [address] [place] [address] Pharmacist Internal Medicine 02/05/24 Ele Meza [address] [address] Gynecology 07/08/24 Marshall De La Paz MD [address] [place] [address] [address] [place] [address] Cardiology 02/17/25 documented as of this encounter
--- OUTSIDE RECORDS SUMMARY | 2025-03-10 17:19 | XMS_ITS | Encounter Summary ---
Author Organization [facility] Address [address] [facility] 7t [place] [address] Care Team Providers Care Dental Laboratory Manager Name Role Phone Ashanti Davila MD Primary Care Provider Fartun Guidry PharmD Unavailable Ele Meza Unavailable Marshall De La Paz MD Unavailable Encounter Details Date Type Department Care Team (Latest Contact Info) Description 11/13/2018 Abstract [facility] CONVERSIONS Dental, Provider, DDS Social History Tobacco [...] Description 05/23/2025 8:45 AM EST Office Visit [facility] ADULT DENT[facility] [address] [place] [address] Casi, Vonda [address] [place] [address] documented as of this encounter Visit Diagnoses Not on filedocumented in this encounter Care Teams Dental Laboratory Manager Relationship Specialty Start Date End Date Ashanti Davila MD [address] [place] [address] PCP - General Family Medicine 06/16/18 Fartun Guidry, PharmD [address] [place] [address] Pharmacist Internal Medicine 02/05/24 Ele Meza [address] [address] Gynecology 07/08/24 Marshall De La Paz MD [address] [place] [address] [address] [place] [address] Cardiology 02/17/25 documented as of this encounter
--- OUTSIDE RECORDS SUMMARY | 2025-03-10 17:19 | XMS_ITS | Clinical Summary ---
Author Organization [facility] Address [address] [place], [place] [phone] Phone Care Team Providers Care Camp Coordinator Name Role Phone Unknown, Unknown Primary Care [...] file Medical Devices Not on file [place] [address] [address] [employer] Care Teams Camp Coordinator Relationship Specialty Start Date End Date Unknown, Unknown, PCP - General 03/03/18 Additional Source Comments The information contained in this document represents components of the legal health record. It is not the complete legal health record.[facility]
--- OUTSIDE RECORDS SUMMARY | 2025-03-10 17:19 | XMS_ITS | Clinical Summary ---
Author Organization [employer] Address [address] [place] [address] Care Team Providers Care Data Collector Name Role Phone Ashanti Davila MD Primary Care Provider [phone] Fartun Guidry PharmD Unavailable [phone] Ele Meza Unavailable Marshall De La Paz MD Unavailable Allergies Active Allergy Reactions Criticality Noted Date Comments Citrullus Vulgaris 05/28/2023 Gabapentin 06/01/2018 Pineapple 05/28/2023 Pollen Extract 05/28/2023 pt states that she is allergic to hair dye-kim beauchemin, electrical tester Medications Diclofenac Sodium (Voltaren) 1 % gelIndications: Muscle pain Apply topically to skin bid prn pain 50 g 2 Active Additional Information Patient not taking.Reported on 03/08/2025 Active Problems Patient Care Coordination No te Formatting of this note migh t be different from the original. [facility] [place] Wheel [employer] Pin[employer] Inspector: Kely, member services number [phone], provider services line, , option 4 Pattern Repair Person Agency: Refused [facility] Problem Noted Date Diagnosed Date Transfusion of blood product refused for religio us reason 01/07/2025 Assessment & Plan (01/07/2025 10:29 AM EDT): Bone loss 11/19/2024 Assessment & Plan (11/19/2024 11:31 AM EDT): Severe generalized gingival recession 11/19/2024 Staining (discoloration) of teeth 11/19/2024 Overweight 07/08/2024 Overview (07/08/2024): -ordered routine labs [...] Clobetasol ointment Cardiac risk counseling 10/08/2023 Overview (09/22/2024): Calculated 09/22/24 : Intermediate risk The 10-year ASCVD risk score (Gordo VALENTIN, et al., 2019) is: 10.6% Values used to calculate the score: Age: 64 years Sex: Female Is Non- : No Diabetic: No Tobacco smoker: No Systolic Blood Pressure: 180 mmHg Is BP treated: No HDL Cholesterol: 65 mg/dL Total Cholesterol: 230 mg/dL Lab Results Component Value Date LDLCHOL [...] a healthy lifestyle, being active in her zoroastrianism and prayer, relaxation techniques, and patient agreed [...] a healthy lifestyle, being active in her zoroastrianism and prayer, relaxation techniques, and patient agreed [...] a healthy lifestyle, being active in her zoroastrianism and prayer, relaxation techniques, and patient agrees to seeing Collaborative Drug Therapy Managment Program with our PharmD, CDCES as well as cardiology. 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 -dental home is [facility] -health care proxy filed 01/29/2024 Assessment & Plan (07/08/2024 10:51 AM EST): -next physical exam 07/08/25 -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 S/p excision 01/2006 and 5 years of Tamoxifen. Followed by [facility]. Last visit 03/2014 -Last bilateral Mammo was negative 04/20/2019. BI-RADS 1 -b/l US on 08/06/2019 was normal -breast exam normal 10/2018 -Mammo 07/2019 BIRADS 1 negative -Mammo 04/25/2021 BIRADS 1 negative -Mammo 05/06/2023 negative -Mammo 05/10/24 BIRADS 1 normal Assessment & Plan (08/25/2024 2:14 PM EDT): Hx right atypia of the breast and family history of breast cancer. S/p excision 01/2006 and 5 years of Tamoxifen. Followed by [facility]. Last visit 03/2014 -Last bilateral Mammo was negative 04/20/2019. BI-RADS 1 -b/l US on 08/06/2019 was normal -breast exam normal 10/2018 -Mammo 07/2019 BIRADS 1 negative -Mammo 04/25/2021 BIRADS 1 negative -Mammo 05/06/2023 negative -Mammo 05/10/24 BIRADS 1 normal Assessment & Plan (04/26/2024 12:37 PM EST): Hx right atypia of the breast and family history of breast cancer. S/p excision 01/2006 and 5 years of Tamoxifen. Followed by [facility]. Last visit 03/2014 -Last bilateral Mammo [...] and 5 years of Tamoxifen. Followed by [facility]. Last visit 03/2014 -Last bilateral Mammo [...] and 5 years of Tamoxifen. Followed by [facility]. Last visit 03/2014 -Last bilateral Mammo [...] and 5 years of Tamoxifen. Followed by [facility]. Last visit 03/2014 -Last bilateral Mammo was negative 04/20/2019. BI-RADS 1 -b/l US on 08/06/2019 was normal -breast exam normal 10/2018 -Mammo 07/2019 BIRADS 1 negative -Mammo 04/25/2021 BIRADS 1 negative Dyslipidemia 10/28/2018 Overview (09/22/2024): Lab Results Component Value Date CHOL 230 (H) 07/08/2024 CHOL 224 (H) 06/04/2023 CHOL 248 (A) 03/06/2022 TRIG 56 07/08/2024 TRIG 132 06/04/2023 TRIG 125 03/06/2022 HDL 65 07/08/2024 HDL 74 06/04/2023 HDL 69 03/06/2022 LDLCHOLCAL 154 (H) 07/08/2024 LDLCHOLCAL 124 (H) 06/04/2023 LDL 154 03/06/2022 [...] with her BP meds. Assessment & Plan (01/07/2025 10:29 AM EDT): Lab Results Component Value Date CHOL 230 (H) 07/08/2024 CHOL 224 (H) 06/04/2023 CHOL 248 (A) 03/06/2022 TRIG 56 07/08/2024 TRIG 132 06/04/2023 TRIG 125 03/06/2022 HDL 65 07/08/2024 HDL 74 06/04/2023 HDL 69 03/06/2022 LDLCHOLCAL 154 (H) 07/08/2024 LDLCHOLCAL 124 (H) 06/04/2023 LDL 154 03/06/2022 [...] to medication changes with her BP meds. Orders: Hepatic Function Panel; Future Lipid Panel, Standard; Future Assessment & Plan (08/25/2024 2:13 PM EDT): Lab Results Component Value Date CHOL 230 (H) 07/08/2024 CHOL 224 (H) 06/04/2023 CHOL 248 (A) 03/06/2022 TRIG 56 07/08/2024 TRIG 132 06/04/2023 TRIG 125 03/06/2022 HDL 65 07/08/2024 HDL 74 06/04/2023 HDL 69 03/06/2022 LDLCHOLCAL 154 (H) 07/08/2024 LDLCHOLCAL 124 (H) 06/04/2023 LDL 154 03/06/2022 [...] with her BP meds. Assessment & Plan (07/08/2024 10:57 AM EST): [...] goal Varicose veins 11/07/2017 Hyperparathyroidism 06/30/2013 Overview (01/07/2025): Hx primary hyperparathyroidism. S/p parathyroidectomy with intraoperative PTH monitoring 11/15/2013. Dx was parathyroid adenoma. -recommend biannual routine serum calcium measurements -encourage continue calcium and Vid D supplements Lab Results Component Value Date PARATHYROID 54.8 02/05/2024 PARATHYROID 93.3 (H) 06/04/2023 [id number] 39.6 02/05/2024 CREATININE 0.60 09/11/2024 CA 9.2 09/11/2024 Endocrinology referral placed but pt did not meet scheduling requirements. 24 hour urine calcium and cr with serum creatine, ca and albumin recommended. If urinary calcium is less than 100 mg/day, pt will need to be optimized for calcium intake 1000 mg/day to help with secondary hyperparathyroidism. Assessment & Plan (01/07/2025 10:29 AM EDT): Hx primary hyperparathyroidism. S/p parathyroidectomy with intraoperative PTH monitoring 11/15/2013. Dx was parathyroid adenoma. -recommend biannual routine serum calcium measurements -continue calcium and Vid D supplements Assessment & Plan (07/08/2024 10:56 AM EST): Hx primary hyperparathyroidism. S/p parathyroidectomy with intraoperative PTH monitoring 11/15/2013. Dx was parathyroid adenoma. -recommend biannual routine serum calcium measurements -encourage continue calcium and Vid D supplements Lab Results Component Value Date PARATHYROID 54.8 02/05/2024 PARATHYROID 93.3 (H) 06/04/2023 [id number] 39.6 02/05/2024 CREATININE 0.68 02/05/2024 CA 10.0 [...] Component Value Date PARATHYROID 93.3 (H) 06/04/2023 [id number] 43.9 06/04/2023 CREATININE 0.65 06/04/2023 CA 9.7 [...] Blind left eye 10/05/2012 Hypertension 01/13/2012 Overview (02/17/2025): -uncontrolled HTN for years and multiple concerns [...] amlodipine to 10mg and I sent refills 08/10/24, she states she took one pill and it made her so sick she had to to to the ER -08/25/24 Pt states she is done with medications and does not want to be offered any medications at this time. She understands the risks. -09/22/24 She states she will take amlodipine 5mg only even though she does not want to take it. We gently reviewed that going to the ER when she has hypertension that she refuses to treat is not a good treatment plan. She refuses Collaborative Drug Therapy Managment Program with our PharmD, SHE. -seen by [facility] cardiology with Randal Gar, TAMMIE02/17/25 olmastartan written 20mg daily follow up 1 months with Assessment & Plan (01/07/2025 10:29 AM EDT): -uncontrolled HTN for years and multiple [...] amlodipine to 10mg and I sent refills 08/10/24, she states she took one pill and it made her so sick she had to to to the ER -08/25/24 Pt states she is done with medications and does not want to be offered any medications at this time. She understands the risks. -09/22/24 She states she will take amlodipine 5mg only even though she does not want to take it. We gently reviewed that going to the ER when she has hypertension that she refuses to treat is not a good treatment plan. She refuses Collaborative Drug Therapy Managment Program with our SHE Tate. Orders: Albumin, Random Urine W/Creatinine; Future Basic Metabolic Panel; Future Assessment & Plan (09/22/2024 1:55 PM EDT): -uncontrolled HTN for years and [...] amlodipine to 10mg and I sent refills 08/10/24, she states she took one pill and it made her so sick she had to to to the ER -08/25/24 Pt states she is done with medications and does not want to be offered any medications at this time. She understands the risks. -09/22/24 She states she will take amlodipine 5mg only even though she does not want to take it. We gently reviewed that going to the ER when she has hypertension that she refuses to treat is not a good treatment plan. She refuses Collaborative Drug Therapy Managment Program with our PharmD, SHE. Assessment & Plan (08/25/2024 2:14 PM EDT): -uncontrolled HTN for years and [...] amlodipine to 10mg and I sent refills 08/10/24, she states she took one pill and it made her so sick she had to to to the ER -08/25/24 Pt states she is done with medications and does not want to be offered any medications at this time. She understands the risks. Assessment & Plan (07/27/2024 9:13 AM EST): [...] of cervix and cervical HPV 01/13/2012 Overview (11/22/2024): Pt with abnormal cervical cytology since 2008. Last 3 paps 11/2017 and 09/2016, 03/2021 all NILM HPV negative. 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 Last 2 paps 11/2017 and 03/2021 all NILM HPV negative. 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 Last 2 paps 11/2017 and 03/2021 all NILM HPV negative. 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 11/19/2024 11/22/2024 Assessment & Plan (11/19/2024 11:31 AM EDT): Generalized chronic severe periodontitis 11/19/2024 11/22/2024 Assessment & Plan (11/19/2024 11:31 AM EDT): Dietary counseling 07/08/2024 5 Assessment & Plan (07/08/2024 10:44 AM EST): Exercise Recommendations: At least 150 minutes of moderate-intensity physical activity per week, or an equivalent combination of moderate- and vigorous-intensity activity Exercise counseling 07/08/2024 11/23/19 25 Assessment & Plan (07/08/2024 10:44 AM EST): Dietary Recommendations: Fruits, vegetables, whole grains, protein foods, and fat-free or low-fat dairy products are healthy choices. Eat different types of protein foods in your diet. This can include seafood, lean meats, poultry, beans, peas, lentils, nuts, seeds, soy products, and eggs. Limit foods and beverages higher in added sugars, saturated fat, and sodium. Hypercholesterolemia 06/02/2023 06/02/2023 023 Physical exam 06/02/2023 01/29/2024 Overview (06/02/2023): -Normal growth and development. -Anticipatory guidance discussed. -Preventative care / harm reduction discussed. Assessment & Plan (06/02/2023 10:23 AM EST): -Normal growth and development. -Anticipatory guidance discussed. -Preventative care / harm reduction discussed. 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 (Primary Dx); Dental caries; Necrosis of dental pulp 01/25/2025 Telephone [facility] [address] [place] [phone] Ashanti Davila MD Paperwork/Forms 01/07/2025 11:00 AM EDT Office Visit [address] [phone] Ashanti Davila MD Primary hypertension (Primary Dx); Dyslipidemia; Hyperparathyroidism (CMS/HCC); Muscle pain; Transfusion of blood product refused for mormon reason 01/07/2025 Travel 01/06/2025 Telephone [facility] [address] [place] [address] Ashanti Davila MD chartprep from Last 3 Months Immunizations Immunization Administration Dates Next Due Influenza, IIV3, injectable [...] the past 12 months, has t he InSupply, gas, oil or water company threatened to [...] Pressure 180/110 03/08/2025 9:54 AM EDT Pulse 70 01/25/2025 10:02 AM EDT Temperature 37.2 C (98.9 F) 01/07/2025 9:27 AM EDT Respiratory Rate 17 01/07/2025 9:27 AM EDT Oxygen Saturation 98% 01/07/2025 9:27 AM EDT Inhaled Oxygen Concentration - - Weight 64 kg (141 lb 3.2 oz) 01/07/2025 9:27 AM EDT Height 160 cm (5' 3 ) 04/26/2024 10:12 AM EST Body Mass Index 25.01 04/26/2024 10:12 AM EST Plan of Treatment Upcoming Encounters Date Type Department Care Team (Late st Contact Info) Description 05/23/2025 8:45 AM EST Office Visit [facility] [address] [place] [address] Casi, Vonda [address] [place] [address] Health Maintenance Due Date Last Done Comments CT Colonography 1960 FIT DNA/Cologuard 1960 FIT 1960 FOBT 1960 Sigmoidoscopy 1960 Pneumococcal Vaccine: 50+ Years (1 of 1 - PCV) 2009 Zoster Vaccines (1 of 2) 2009 COVID-19 Vaccine (1 - season) 2025 Influenza Vaccine (#1) 2025 02/28/2009, 2002 Alcohol/Substance Use Screening 04/26/2025 04/26/2024 Dental Oral Exam 05/22/2025 11/19/2024, , 05/15/2018, Additional history exists Dental Prophylaxis 05/22/2025 11/19/2024, 1 07/21/2018, 11/13/2018, Additional history exists SDOH Screening 06/29/2025 06/29/2024 Depression Screening 07/08/2025 07/08/2024, 07/08/19 Dental X-Ray: Bitewings 11/20/2025 11/20/19, 05/15/2018, 11/06/2016, Additional history exists Tobacco Screening 03/08/2026 03/08/2025 Mammogram 05/11/2026 05/11/2024, 04/17, 04/25/2021 Dental X-Ray: Full Mouth 11/21/2027 11/19/2024, 07/17 DTaP/Tdap/Td Vaccines (2 - Td or Tdap) 03/04/2028 03/04/2018, 11/24/2003 HPV/Cotest 11/11/2029 11/11/2024, 03/16, 04/03/2021, Additional history exists Pap Smear 11/11/2029 11/11/2024, 07/04/2020 Colonoscopy 12/07/2029 12/08/2019 Colorectal Cancer Screening 12/07/2029 Lipid Panel 01/25/2030 01/25/2025, 06/17, 06/04/2023, Additional history exists RSV Patients and Patients Aged 60 years [...] Diagnosis Comments NO CHARGE PROCEDURE Routine 03/08/2025 9 :30 AM EDT CASE PRESENTATION, DETAILED AND EXTENSIVE TREATMENT PLANNING Routine 01/25/2025 10:30 AM EDT 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 Dental caries Necrosis of dental pulp INTRAORAL - PERIAPICAL FIRST RADIOGRAPHIC IMAGE Routine 01/25/2025 10:30 AM EDT 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 Dental caries Necrosis of dental pulp CONSULTATION - DIAGNOSTIC SERVICE PROVIDED BY DENTIST OR PHYSICIAN OTHER THAN REQUESTING DENTIST OR PHYSICIAN Routine 01/25/2025 10:30 AM EDT 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 Dental caries Necrosis of dental pulp BASIC METABOLIC PANEL Routine 01/25/2025 9:18 AM EDT Primary hypertension LIPID PANEL, STANDARD Routine 01/25/2025 9:18 AM EDT Dyslipidemia HEPATIC FUNCTION PANEL Routine 01/25/2025 9:18 AM EDT Dyslipidemia ALBUMIN, RANDOM URINE W/CREATININE Routine 01/25/2025 9:18 AM EDT Primary hypertension PROPHYLAXIS - ADULT Routine 11/19/2024 1 1:00 AM EDT Staining (discoloration) of teeth INTRAORAL - COMPLETE SERIES OF RADIOGRAPHIC IMAGES Routine 11/19/2024 11:00 AM EDT 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 Bone loss Severe generalized gingival recession Staining (discoloration) of teeth PERIODIC ORAL EVALUATION - ESTABLISHED PATIENT Routine 11/19/2024 11:00 AM EDT HPV DNA, LOW/HIGH RISK Routine 11/11/2024 9:27 AM EDT PAP SMEAR Routine 11/11/2024 9:27 AM EDT HEPATITIS C AB W/REFL TO HCV RNA, QN, PCR Routine 06/04/2023 11:33 AM EST Routine screening for STI (sexually transmitted infection) BI MAMMOGRAM SCREENING BILATERAL Routine 05/06/2023 HM COLONOSCOPY Routine 12/08/2019 from Last 3 Months or Most Recently Relevant to Health Maintenance Results * Albumin, Random Urine W/Creatinine (01/25/2025 9:18 AM EDT) Creatinine, Urine 43.40 mg/dL [facility] Microalbumin Urine 5.0 mg/L [facility] Microalbum Creatinine Ratio Ur 11.5 <30 ug/mg cr [facility] Comment:Albumin/Creatinine R atio Reference Ranges: Normal: < 30 ug/mg creatinine Microalbuminuria: 30 - 300 ug/mg creatinineClinical Albuminuria: > 300 ug/mg creatinine Urine 01/25/2025 9:18 AM EDT 01/25/2025 11:10 AM EDT Ashanti Davila MD LAB URINE ORDERABLES Final Result [facility] [address] [place] [address] [phone] * Hepatic Function Panel (01/25/2025 9:18 AM EDT) Bilirubin, Total 0.5 0.0 - 1.0 mg/dL [facility] Comment:Slight Icterus. Bilirubin, Direct 0.2 0.0 - 0.5 mg/dL [facility] Comment:Slight Icterus. Aspartate Amino Transferase 25 5 - 31 U/L [facility] Alanine Aminotransferase 29 0 - 31 U/L [facility] Total Protein 7.4 6.5 - 8.0 g/dL [facility] Albumin Level 4.7 3.5 - 5.0 g/dL [facility] Alkaline Phosphatase 67 39 - 117 U/L [facility] Blood Venous blood specimen / Unknown 01/25/2025 9:18 AM EDT 01/25/2025 11:18 AM EDT Ashanti Davila MD LAB BLOOD ORDERABLES Final Result Performing Organization Address City/[facility]/ZIP Co de Phone Number [facility] [address] [place] [address] [phone] * (ABNORMAL) Lipid Panel, Standard (01/25/2025 9:18 AM EDT) Triglycerides 110 <150 mg/dL [facility] Comment:Desirable Triglyceri de: less than 150 mg/dLBorderline High Triglyceride 150-199 mg/dLHigh Triglyceride: 200-499 mg/dLVery High Triglyceride: greater than or equal to 5OO mg/dL Cholesterol 229(H) <200 mg/dL [facility] Comment:Desirable Cholestero l: less than 200 mg/dLBorderline High Cholesterol: 200-239 mg/dLHigh Cholesterol: greater than 239 mg/dL LDL Cholesterol Calculated 132(H) <100 mg/dL [facility] Comment:Desirable LDL: less than 100 mg/dLNear Optimal/Above Optimal LDL: 110- 129 mg/dLBorderline High LDL: 130-159 mg/dLHigh LDL: 160-189 mg/dLVery High LDL: greater than or equal to 190 mg/dL HDL Cholesterol 75 >40 mg/dL [facility] Comment:Desirable HDL: great er than 40 mg/dL Note: This HDL assay may give artificially low results in patients with liver disease. Blood Venous blood specimen / Unknown 01/25/2025 9:18 AM EDT 01/25/2025 11:18 AM EDT Ashanti Davila MD LAB BLOOD ORDERABLES Final Result Performing Organization Address City/[facility]/ZIP Co de Phone Number [facility] [address] [place] [phone] [phone] * (ABNORMAL) Basic Metabolic Panel (01/25/2025 9:18 AM EDT) Sodium 138 135 - 145 mmol/L [facility] Potassium 3.8 3.3 - 5.1 mmol/L [facility] Chloride 101 96 - 108 mmol/L [facility] Carbon Dioxide 27 22 - 29 mmol/L [facility] Anion Gap 14 12 - 20 [facility] Urea Nitrogen (BUN) 6(L) 9 - 16 mg/dL [facility] Creatinine, Serum 0.60 0.5 - 1.4 mg/dL [facility] Estimated Glomerular Filt Rate >60 [facility] Comment:Chronic Kidney Disea se: Estimated GFR < 60 mL/min/[id number] Kidney Disease: Estimated GFR < 15 mL/min/1.73m2 Glucose 113 60 - 115 mg/dL [facility] Calcium 9.3 8.4 - 10.2 mg/dL [facility] Blood Venous blood specimen / Unknown 01/25/2025 9:18 AM EDT 01/25/2025 11:18 AM EDT Ashanti Davila MD LAB BLOOD ORDERABLES Final Result [facility] [address] [place] [phone] * HPV DNA, Low/High Risk (11/11/2024 9:27 AM EDT) HPV High Risk Negative Negative [facility] HPV Genotype 16 Negative Negative [facility] HPV Genotype 18 Negative Negative [facility] Comment:HPV testing performe d at [facility] (CLIA#[id number]), [address] [place] [address].Testing for HPV was performed using the [employer] STEFAN 6800system. The presence of HPV in the female genital tract isassociated with a number of diseases, including cervicalcarcinoma. The HPV DNA high risk pool tests for HPV 31, 33,35, 39, 45, 51, 52, 56, 58, 59, 66 and 68. The testing forHPV 16 and 18 genotypes has also been performed. A positiveresult indicates detection of nucleic acid sequences fromone or more subtypes, whereas a negative result indicatessuch sequences were not detected. 11/11/2024 9:27 AM EDT 11/11/2024 2:00 PM EDT us Generic External Data Provider LAB BLOOD ORDERAB LES Final Result [facility] [address] [place] [phone] * Pap Smear (11/11/2024 9:27 AM EDT) 11/11/2024 9:27 AM EDT 11/11/2024 2:00 PM EDT Narrative [facility] - 11/19/2024 4:46 PM EDT ----- ------- Name: Kareem Traore Age/Sex: 64/F [facility] 1960 [id number] [id number] Attend Dr: Ele Meza CNM Re11/11/24 Status: ANGEL [facility] Disch: ----- ------- SPEC : [id number] RECD: 11/11/24-1400 STATUS: ZA DE JESUS NUM: [id number] PIA: 11/11/[address] [facility] [address]: Ele Meza CNM ENTERED: 11/11/24-3186 SP TYPE: Pap Smr OTHR DR: Ashanti Davila MD ORDERED: Pap Smear, PAP path review Interpretation Unsatisfactory for evaluation due to obscuring inflammation and lubricant. Clinical Information LMP: Menopausal Previous PAP test: 2020, hx LEEP, CIN2 Other history: Personal history of other diseases of the female tract Material Received ThinPrep-Cervical PAP Disclaimer As of April 07, 2024, the technical services to include automated prescreening performed by the ThinPrep Imaging System, PAP screening and HPV testing will be performed at [facility] (CLIA #[id number]), [address] [place] [address]. Testing for HPV was performed using the [employer] system. The presence of HPV in the female genital tract is associated with a number of diseases, including cervical carcinoma. The HPV DNA high risk pool tests for HPV 31, 33, 35, 39, 45, 51, 52, 56, 58, 59, 66 and 68. The testing for HPV 16 and 18 genotypes has also been performed. A positive result indicates detection of nucleic acid sequences from one or more subtypes, whereas a negative result indicates such sequences were not detected. All professional services are performed by [facility] ([address] [place] [address]; ; CLIA #[id number]). The PAP Test is a screening procedure with the inherent possibility of both false negative and false positive results. Results should be interpreted in the context of historic and current clinical findings. Reliability of the PAP Test is enhanced by performing the test on a regular repetitive basis. Copies To: [place] [address] CONTINUED ON NEXT PAGE ----- ------- Name: Traore,Freeburn Age/Sex: 64/F : 1960 Unit#: [id number] Attend Dr: Ele Meza CNM Re11/11/24 Status: DEP REF Location: HO.LNP Disch: ----- ------- SPEC : [id number] RECD: 11/11/24-1399 STATUS: ZA DE JESUS NUM: [id number] PIA: 11/11/[address]: Ele Meza CNM ENTERED: 11/11/24-1409 SP TYPE: Pap Smr OTHR DR: Ashanti Davila MD ORDERED: Pap Smear, PAP path review Copies To: (Continued) Ele Meza CNM [facility] [address] [place] [address] [place] [phone] ----- ------- Signed (signature on file) Marcie Lloyd MD 11/19/24 [id number] ----- ------- END OF REPORT us Generic External Data Provider LAB CYTOLOGY ORDE RABLES Final Result Performing Organization Address [facility]/ZIP Co de Phone Number [facility] [address] [place] [phone] * Hepatitis C Antibody with Reflex to HCV, RNA, Quantitative, Real-Time PCR (06/04/2023 11:33 AM EST) Hepatitis C Antibody Nonreactive Nonreactive [facility] Comment:Antibodies to HCV no t detected; does not exclude early acuteHCV infection. Blood Venous blood specimen / Unknown 06/04/2023 11:33 AM EST 06/04/2023 1:10 PM EST us Ashanti Davila MD LAB BLOOD ORDERABLES Final Result Performing Organization Address [facility] Co de Phone Number [facility] [address] [place] [phone] * BI Mammogram Screening Bilateral (05/06/2023) Anatomical Region Laterality Modality Breast Bilateral Mammography Historical Provider IMG BI PROCEDURES Final R esult * Hm Colonoscopy (12/08/2019) Colonoscopy noral with Dr. 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
--- OUTSIDE RECORDS SUMMARY | 2025-03-10 17:19 | XMS_ITS | Encounter Summary ---
Author Organization [employer] Address [address] [place] [address] Care Team Providers Care Clin Asst Name Role Phone Ashanti Davila MD Primary Care Provider +- [phone] Fartun Guidry PharmD Unavailable Ele Meza Unavailable Marshall De La Paz MD Unavailable Encounter Details Date Type Department Care Team (Late st Contact Info) Description 07/27/2024 Orders Only [facility] [address] [place], [place] [phone] Ashanti Davila MD [address] [place], [place] [phone] Social History Tobacco Use Types Packs/Day Years [...] is your housing situation today? I have petergeraldo henley 06/29/[address] you [...] Description 05/23/2025 8:45 AM EST Office Visit [facility] [address] [place] [address] Casi, Vonda [address] [place] [address] documented as of this encounter Visit Diagnoses Not on filedocumented in this encounter Additional Health Concerns Assessment Noted Time PHQ-9 Depression Total Score: 0 07/08/19 25 10:38 AM EST documented as of this encounter Care Teams Clin Asst Relationship Specialty Start Date End Date Ashanti Davila MD [address] [place] [address] PCP - General Family Medicine 06/16/18 Fartun Guidry PharmD [address] [place] [phone] Pharmacist Internal Medicine 02/05/24 Ele Meza [address] [address] Gynecology 07/08/24 Marshall De La Paz MD [address] [place] [address] [address] [place] [address] Cardiology 02/17/25 documented as of this encounter
--- OUTSIDE RECORDS SUMMARY | 2025-03-10 17:19 | XMS_ITS | Clinical Summary ---
Author Organization [facility], Address [address] [place] [address] [place] [phone] Phone Care Team Providers Care Caretaker Resort Name Role Phone Ashanti Davila MD Primary [...] to complete this topic Insurance [place] [id number] Care Teams Caretaker Resort Relationship Specialty Start Date End Date [place], Ashanti Orta MD PCP - General Family Medicine 06/01/19
--- OUTSIDE RECORDS SUMMARY | 2025-03-10 17:19 | XMS_ITS | Encounter Summary ---
Author Organization [employer] Address [address] [place] [address] Care Team Providers Care Water Filterer Name Role Phone Ashanti Davila MD Primary Care Provider [phone]- [phone] Fartun Guidry PharmD Unavailable Ele Meza Unavailable Marshall De La Paz MD Unavailable Encounter Details Date Type Department Care Team (Late st Contact Info) Description 06/30/2022 Abstract [facility] [address] [place] [address] Ashanti Davila MD [address] [place], [place] [phone] Preventative health care Social History Tobacco Use [...] and 5 years of Tamoxifen. Followed by [facility]. Last visit 03/2014 [...] and 09/2016, 03/2021 all NILM HPV negative. [place] Operator 03/2021 NILM HPV negative [place] Operator 02/2019 visit without pap due to [...] 8:45 AM EST Office Visit [facility] [address] [place], [place] [phone] Casi Vonda [address] [place] [address] documented as of this encounter Procedures Procedure [...] / Unknown Historical Provider LAB BLOOD ORDERABLES Genan l Result * Mammography (04/25/2021) Pathologist [facility] Mammogram BIRADS 1 Anatomical Region Laterality Modality Other Historical Provider HEALTH MAINTENANCE Final Result * HPV High Risk PCR (04/03/2021 12:00 AM EDT) Swab Cervical swab / Unknown Historical Provider LAB MICROBIOLOGY - GENERA L ORDERABLES Final Result Performing Organization Address [facility]/ZIP Co de Phone Number [facility] [address] [place] [phone] * Pap Smear (07/04/2020 12:00 AM EST) Swab Historical Provider LAB CYTOLOGY ORDERABLES F inal Result Performing Organization Address [facility]/ZIP Co de Phone Number [facility] [address] [place] [address] [phone] * Colonoscopy (12/08/2019) Pathologist [facility] Colonoscopy norebony with Dr. Pineda Historical Provider HEALTH MAINTENANCE Final Result documented in this encounter Visit Diagnoses Diagnosis Preventative health care Routine general medical examination at a health care facility documented in this encounter Care Teams Water Filterer Relationship Specialty Start Date End Date Ashanti Davila MD [address] [place] [address] PCP - General Family Medicine 06/16/18 Fartun Guidry, Bebeto [address] [place] [address] Pharmacist Internal Medicine 02/05/24 Ele Meza [address] [place] [phone] Gynecology 07/08/24 Marshall De La Paz MD [address] [place] [phone] Cardiology 02/17/25 documented as of this encounter
== END 2025-03-10 13:07 | disposition home or self-care (01) ==
LOC: HO.HWS 12:29
PROVIDERS: PCP Family Medicine; Visit Provider Advanced Practice Midwife
DX: R87.615 Unsatisfactory cytologic smear of cervix (principal)
CPT/HCPCS: 99213

== ENCOUNTER 2025-03-10 12:29 | Outpatient (REF) | payer OTHER, SELFPAY | END 2025-03-10 12:30 | disposition home or self-care (01) | LOC: HO.LNP 12:29 | PROVIDERS: PCP Family Medicine; Visit Provider Advanced Practice Midwife | DX: R87.615 Unsatisfactory cytologic smear of cervix (principal); Z11.51 Encounter for screening for human papillomavirus (HPV); Z87.42 Personal history of other diseases of the female genital tract | CPT/HCPCS: 87626; 88175; 99212 ==